=== PATIENT | male | born 1955 | race Caucasian/White ===

== ENCOUNTER → 2018-08-17 | Outpatient (REF) | payer BC | LOC: M LAB REF 17:11 | DX: L03.032 Cellulitis of left toe (principal) ==

== ENCOUNTER → 2018-09-13 | Outpatient (REF) | payer BC | LOC: M LAB REF 15:40 | DX: L03.115 Cellulitis of right lower limb (principal); L97.512 Non-pressure chronic ulcer of other part of right foot with fat layer exposed | CPT/HCPCS: 87186 ==

== ENCOUNTER → 2018-12-20 | Outpatient (REF) | payer MEDICARE | LOC: M LAB REF 15:32 | PROVIDERS: ATTEND Podiatrist | DX: M79.671 Pain in right foot (principal); L03.125 Acute lymphangitis of right lower limb ==

== ENCOUNTER → 2019-01-27 | Outpatient (CLI) | payer MEDICARE ==
--- NOTE | 2019-02-02 10:17 | SLEEPCENT ---
DATE OF PROCEDURE: 01/27/2019 ORDERED BY: Italia Stover Nocturnal polysomnography was performed for evaluation of sleep physiology in this patient with prior history of obstructive sleep apnea syndrome. 7 hours and 23 minutes of data were reviewed. There were 379 minutes of sleep identified. Sleep latency was normal at 7 minutes. REM latency was short at 21 minutes. Sleep architecture showed fragmentation. Overall sleep efficiency was 86.5%. The electrocardiogram showed a sinus rhythm with an average heart rate of 66 beats per minute. EEG showed normal waveforms for wake and sleep were 147 respiratory events identified of 10 seconds in duration or greater for an apnea-hypopnea index of 23.2. Having clearly established the presence of obstructive sleep apnea syndrome early in testing. The study was stopped for the application of pressure therapy. The patient was fit with a Iceotope Quattro Mirage full face mask of medium size. 5 cm of water pressure were applied to the circuit the lights were extinguished. Throughout the remaining hours of testing pressure titration was performed to an optimal pressure of 15 with which the patient slept through REM without respiratory event or oxygen desaturation in the supine posture. Limb activity was noted despite addressing the obstructive respiratory events. However limb movement arousals were few at 1.4. IMPRESSION: 1. Obstructive sleep apnea syndrome (G47.33). Apnea-hypopnea index 23.2. RECOMMENDATIONS: Nightly use of pressure therapy 15 cm of water.
== END ==
LOC: M SLEEP 19:23
PROVIDERS: ATTEND Nurse Practitioner Adult Health
DX: G47.33 Obstructive sleep apnea (adult) (pediatric) (principal)

== ENCOUNTER → 2019-08-02 | Outpatient (REF) | payer MEDICARE | LOC: M LAB REF 14:46 | PROVIDERS: ATTEND Podiatrist | DX: L03.031 Cellulitis of right toe (principal); M79.671 Pain in right foot ==

== ENCOUNTER → 2019-10-19 | Outpatient (REF) | payer MEDICARE | LOC: M LAB REF 13:08 | PROVIDERS: ATTEND Podiatrist | DX: L03.039 Cellulitis of unspecified toe (principal); M79.674 Pain in right toe(s) ==

== ENCOUNTER → 2020-07-11 | Outpatient (REF) | payer MEDICARE | LOC: M LAB REF 16:37 | PROVIDERS: ATTEND Podiatrist | DX: L03.032 Cellulitis of left toe (principal); M79.672 Pain in left foot ==

== ENCOUNTER → 2020-08-28 | Outpatient (CLI) | payer MEDICARE ==
[2020-08-28 16:49] LABS: CREATININE, URINE 54.3 MG/DL; MALB URINE SIEMENS 19.9 MG/L; MAU/CREAT RATIO 36.6 MCG/MG (0.0-30.0)
[2020-08-28 17:19] LABS: CALCIUM LEVEL 9.3 MG/DL (8.8-10.2); CREATININE FOR GFR 1.46 MG/DL (0.70-1.30); GLOMERULAR FILTRATION RATE 51.3 (>49); POTASSIUM SERUM 4.7 MEQ/L (3.5-5.1)
== END ==
LOC: M WUC 14:09
PROVIDERS: ATTEND Internal Medicine Endocrinology, Diabetes & Metabolism
DX: E11.65 Type 2 diabetes mellitus with hyperglycemia (principal)

== ENCOUNTER → 2020-11-15 | Outpatient (REF) | payer MEDICARE ==
[2020-11-15 17:37] LABS: BLOOD UREA NITROGEN 23 MG/DL (7-18); CALCIUM LEVEL 9.5 MG/DL (8.8-10.2); CARBON DIOXIDE LEVEL 26 MEQ/L (21-32); CHLORIDE LEVEL 104 MEQ/L (98-107); GLOMERULAR FILTRATION RATE > 60.0 (>49); GLUCOSE, FASTING 295 MG/DL (70-100); POTASSIUM SERUM 4.1 MEQ/L (3.5-5.1); SODIUM LEVEL 139 MEQ/L (136-145)
== END ==
LOC: M WUC 15:52
PROVIDERS: ATTEND Internal Medicine Endocrinology, Diabetes & Metabolism
DX: E11.65 Type 2 diabetes mellitus with hyperglycemia (principal); E11.40 Type 2 diabetes mellitus with diabetic neuropathy, unspecified

== ENCOUNTER 2020-12-26 13:09 | Emergency (ER) | payer MEDICARE ==
[~2020-12-26] VITALS: Ht 198.1 cm; Wt 152.3 kg
[2020-12-26] MEDS ORDERED: FURO40TA2 PO (13:27)
[2020-12-26] MEDS ORDERED: IRBE150T7 PO (13:27)
[2020-12-26] MEDS ORDERED: ATOR1TAB19 PO (13:27)
[2020-12-26] MEDS ORDERED: DULO1CAP5 PO (13:27)
[2020-12-26] MEDS ORDERED: DULA3PEN SUBQ (13:27)
[2020-12-26] MEDS ORDERED: METF10004 PO (13:27)
[2020-12-26] MEDS ORDERED: GABA800T4 PO (13:27)
[2020-12-26] MEDS ORDERED: JARD1TAB3 PO (13:27)
[2020-12-26] MEDS ORDERED: AMLO1TAB25 PO (13:27)
[2020-12-26 13:55] LABS: BASO % 0.2 % (0.0-1.0); HEMATOCRIT 51.5 % (42.0-52.0); HEMOGLOBIN 17.2 g/dl (13.5-17.5); LYMPH # 0.5 10^3/uL (1.5-5.0); LYMPH % 8.9 % (24.0-44.0); MEAN CORPUSCULAR HEMOGLOBIN 30.1 pg (27.0-33.0); MEAN CORPUSCULAR HGB CONC 33.4 g/dl (32.0-36.5); MEAN CORPUSCULAR VOLUME 90.2 fl (80.0-96.0); MONO # 0.6 10^3/uL (0.0-0.8); MONO % 11.2 % (2.0-8.0); NEUTROPHILS # 4.2 10^3/uL (1.5-8.5); PLATELET COUNT, AUTOMATED 109 10^3/uL (150-450); RED BLOOD COUNT 5.71 10^6/uL (4.30-6.10); WHITE BLOOD COUNT 5.4 10^3/uL (4.0-10.0)
[2020-12-26] MEDS ORDERED: PANTOPRAZOLE 40MG VIAL (C9113 PER 1) IV ONE (13:55)
[2020-12-26] MEDS ORDERED: NS 1,000 ML IV ONE ×2 (13:55→16:20)
[2020-12-26] MEDS ORDERED: ONDANSETRON 4MG/2ML VIAL IV ONE (13:55)
[2020-12-26 14:24] LABS: ALBUMIN 3.1 GM/DL (3.2-5.2); BILIRUBIN,DIRECT 0.3 MG/DL (0.0-0.2); BILIRUBIN,TOTAL 0.9 MG/DL (0.2-1.0); CALCIUM LEVEL 7.6 MG/DL (8.8-10.2); CREATININE FOR GFR 1.29 MG/DL (0.70-1.30); GLOMERULAR FILTRATION RATE 59.1 (>49); POTASSIUM SERUM 3.5 MEQ/L (3.5-5.1); TOTAL PROTEIN 6.4 GM/DL (6.4-8.2)
--- NOTE | 2020-12-26 14:33 | REP ---
INDICATION: abd pain COMPARISON: Comparison CT study 10/13/2013.. TECHNIQUE: Helical scanning is acquired in 4 mm axial images were reformatted. Coronal and sagittal MPR images were generated and reviewed. FINDINGS: Digital telephone surveyor radiograph demonstrates a unremarkable bowel gas pattern. There are bilateral renal calculi noted on the telephone surveyor view. Axial CT images displayed lung window settings demonstrate multiple ground-glass opacity and interstitial infiltrates in the lung pierre bilaterally consistent with multifocal pneumonia. These involve right middle lobe, bilateral lower lobes, and at the top of the field of view, the lingula. The patchy bilateral distribution is compatible with COVID-19 pneumonia although this certainly nonspecific. The liver and spleen are normal in size homogeneous in texture. No focal hepatic lesion is seen. No abnormality is noted in the gallbladder. Normal adrenal glands are seen bilaterally. The pancreas is unremarkable. There are no intrarenal calculi in the right kidney on axial CT images. There are 3 fairly large intrarenal calculi in the lower pole of the left kidney. These measure 11 mm each in greatest diameter. There is no evidence of hydronephrosis. No ureteral calculus is observed. The left mid ureter is somewhat dilated but no obstructive lesion is seen. The right mid ureter is also somewhat enlarged. The these configuration of variant is visible previously although little more prominent today. The urinary bladder is mildly dilated but otherwise appears intact.. There are dystrophic calcifications in the prostate. Seminal vesicles are unremarkable. There is left colonic diverticulosis without CT evidence of diverticulitis. Normal a normal appendix is seen in the right lower abdomen. IMPRESSION: 1. Viral pneumonia pattern in the lower lung pierre bilaterally as above. Changes compatible with COVID pneumonia are present although nonspecific. 2. Left colonic diverticulosis without CT evidence of diverticulitis. 3. Intrarenal nephrolithiasis left kidney without hydronephrosis. Three fairly large intrarenal calculi are present in the left kidney. <Electronically signed by Seng Lockett > 12/26/20 [id number]
[2020-12-26 14:37] LABS: INR 1.03; PROTHROMBIN TIME 13.7 SECONDS (12.5-14.3)
--- OUTSIDE RECORDS SUMMARY | 2020-12-26 14:50 | CCD | Continuity of Care Document ---
Author Author Marcus BAEZ MD Organization Unknown Address [address] [place] [address], [address] [place] [address] Phone [phone] Care Team Providers Care Inner Tube Cutter Name Role Phone Rosalie Jeffrey RN Canp AUTM [phone] Problems Active Problems Provider Date Type 2 diabetes mellitus Onset: 08/03/20 15 Essential hypertension Onset: 03/29/2019 Type II diabetes mellitus uncontrolled Sonya Baez MD O nset: 04/12/2019 Social History Type Date Description Comments Sex Unknown Tobacco Use Start: Unknown Never Smoked Cigarettes ETOH Use Rarely consumes alcohol Tobacco Use Start: Unknown Patient has never smoked Smoking Status Reviewed: 09/15/19 Patient has never smoked Allergies, Adverse Reactions, Alerts Description No Known Drug Allergies Medications Active Medications SIG Qnty Indications Ordering Provide r Date Jardiance 25mg Tablets 1 by mouth every day 90tabs E11.65 Sonya Baez MD 09/15/2019 Aleve 220mg Capsules prn Naomy Vasquez, 01/27/2019 Trulicity 1.5mg/0.5ML Solution Pen -Inject Inject 1 Subcutaneously Once A Week 4units Jhonny Vasquez, 10/02/2017 Metformin HCL 1000mg Tablets 1 po bid 180tabs Naomy Vasquez, 02/11/2017 Irbesartan 150mg Tablets 1 by mouth every day Unknown Furosemide 40mg Tablets 1 po qd Unknown Gabapentin 800mg Tablets 1 po tid Unknown Aspir-Low 81mg Tablets DR 1 p o qd Unknown Duloxetine HCL 30mg Caps DR Part 2 PO qam And 1 PO QHS Unknown Atorvastatin Calcium 10mg Tablets 1 by mouth every day Unknown Amlodipine Besylate 10mg Tablets 1 by mouth every day Unknown Multivitamin Adult Tablets 1 by mouth every day Unknown Immunizations Description No Information Available Vital Signs Date Vital Result Comment 11/12/2020 11:15am BP Systolic 146 mmHg BP Diastolic 76 mmHg Heart Rate 87 /min Body Temperature 96.9 F Height 77 inches 6'5" Weight 325.38 lb BMI (Body Mass Index) 38.6 kg/m2 O2 % BldC Oximetry 98 % 08/06/2020 2:31pm BP Systolic 124 mmHg BP Diastolic 80 mmHg Heart Rate 77 /min Height 77 inches 6'5" Weight 322.25 lb BMI (Body Mass Index) 38.2 kg/m2 O2 % BldC Oximetry 97 % Results Test Acquired Date Facility Test Result H/L Range Note Laboratory test finding 11/12/2020 In House Hemoglobin A1c 10.2 Glucose 250 Basic Metabolic Profile 08/28/2020 [facility] [address] [place] [address] [phone] - Glucose, Fasting 441 mg/dL Critical high 70-100 Blood Urea Nitrogen 29 mg/dL High 7-18 Creatinine For GFR 1.46 mg/dL High 0.70-1.30 Glomerular Filtration Rate 51.3 Normal >49 1 Sodium Level 132 mEq/L Low 136-145 Potassium Serum 4.7 mEq/L Normal 3.5-5.1 Chloride Level 96 mEq/L Low 98-107 Carbon Dioxide Level 30 mEq/L Normal 21-32 Anion Gap 6 mEq/L Low 8-16 Calcium Level 9.3 mg/dL Normal 8.8-10.2 Urine Micro/Creat Ratio Random 08/28/2020 [facility] [address] [place] [address] [phone] - Creatinine, Urine 54.3 mg/dL Normal Malb Urine Siemens 19.9 mg/L Normal Hubert/Creat Ratio 36.6 MCG/MG High 0.0-30.0 2 Laboratory test finding 08/06/2020 In House Hemoglobin A1c 11.0 Glucose 270 1 Units are mL/min/1.73 m2 Chronic Kidney Disease Staging per NKF: Stage I & II GFR >=60 Normal to Mildly Decreased Stage III GFR 30-59 Moderately Decreased Stage IV GFR 15-29 Severely Decreased Stage V GFR <15 Very Little GFR Left ESRD GFR <15 on [employer] 2 THE [employer] ATION STATES THAT MICROALBUMINURIA IS PRESENT IF THE MICROALBUMIN/CREATININE RATIO EXCEEDS 30 MCG/MG. THE THRESHOLD FOR CLINICAL ALBUMINURIA IS REACHED AT 300 MCG/MG. THE CLASSIFICATION OF A PATIENT SHOULD BE BASED UPON AT LEAST 2 OF 3 ABNORMAL RESULTS ON SPECIMENS COLLECTED WITHIN A 3 TO 6 MONTH TIME FRAME. Procedures Date Code Description Status 07/10/2020 [id number] Diabetic Foot Exam Completed Medical Devices Description No Information Available Encounters Type Date Location Provider Dx Diagnosis Office Visit 08/06/2020 2:30p DR. 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 in Sonya Baez MD 11/12/2020 E11.65 Type 2 diabetes mellitus with hy perglycemia Sonya Baez MD 11/12/2020 E11.40 Type 2 diabetes mellitus with di abetic neuropathy, unspecifi Sonya Baez MD 11/12/2020 Z68.41 Body mass index [BMI]40.0-44.9, adult Sonya Baez MD 11/12/2020 E66.01 Morbid (severe) obesity due to e xcess calories Sonya Baez MD 11/12/2020 E78.00 Pure hypercholesterolemia, unspe cified Sonya Baez MD 08/06/2020 Z79.4 prison (current) use of insul in Sonya Baez MD 08/06/2020 E11.65 Type 2 diabetes mellitus with hy perglycemia Sonya Baez MD 08/06/2020 E11.40 Type 2 diabetes mellitus with di abetic neuropathy, unspecifi Sonya Baez MD 08/06/2020 Z68.41 Body mass index [BMI]40.0-44.9, adult Sonya Baez MD 08/06/2020 E66.01 Morbid (severe) obesity due to e xcess calories Sonya Baez MD 08/06/2020 E78.00 Pure hypercholesterolemia, unspe cified Sonya Baez MD 07/10/2020 Z79.4 prison (current) use of insul in Sonya Baez MD 07/10/2020 E11.65 Type 2 diabetes mellitus with hy perglycemia Sonya Baez MD 07/10/2020 E11.40 Type 2 diabetes mellitus with di abetic neuropathy, unspecifi Sonya Baez MD 07/10/2020 Z68.41 Body mass index (BMI) 40.0-44.9, adult Sonya Baez MD 07/10/2020 E66.01 Morbid (severe) obesity due to e xcess calories Sonya Baez MD 07/10/2020 E78.00 Pure hypercholesterolemia, unspe cified Sonya Baez MD Plan of Treatment 11/12/2020 - Sonya Baez MD* 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 * E11.65 Type 2 diabetes mellitus with hyperglycemia* New Labs:* Basic Metabolic Profile, Scheduled: 11/12/20 * Comments:* In office A1c =10.2 bp=724vpto A1c= 11%-" i added potatoes to a few meals, no candy, no dairy, no fruit"now having dairy- cheese, occasional milk, breading on fish. Still eats beets, pickled beets - a " fair amount"no product from grainsMarkedly decompensated.He reports one episode where he took 50 inits of toujeo and had low BS in middle of the nightExtremely difficult case.-Continues to be in denial about his dietary habits.past 7.7% down from 9.8% 8.8%, 8.3% prior A1c = 10.3%. before jardianceMeter download: Not checking regularly . recent BS= 300 only 2 readings the past several weeksPast insulin medications: Toujeo insulin 66 units, he takes a double injection in the morning,- and an additional 66 at night for past weekHumalog 30 units with each meal.- break and dinnercurrent medications:Trulicity 1.5 mg weekly (he is not sure that this has helped lower his blood sugar at all)Metformin 1000 mg twice a day. Jardiance 25 ( started 04/12/19)RECS:#1: Restart mealtime insulin: take 10 units with a meal that has starch- PAtient did not restart insulin+++#2: raise trulicity 3.0#3 restart toujeo 100 units in am" its a whole mental issue about taking medication...i have memory loss and mental muddling.". * Follow up:* 6 weeks- nette/cbf- 30 minutes * E11.40 Type 2 diabetes mellitus with diabetic neuropathy, unspecifi* New Labs: * Magnesium Level, Scheduled: 11/12/20 * Comments:* He has severe peripheral neuropathy and is taking gabapentin. Loss of sensation to the mid shins. Discussed appropriate foot care. self increased to 4-5 pills a day- feet bother at night * Z68.41 Body mass index [BMI]40.0-44.9, adult* Comments:* Diet and exercise discussed. * E66.01 Morbid (severe) obesity due to excess calories* Comments:* calorie restriction and exercise advised. has lost 25 pounds and an additional 22 but now make be due to porrly controlled diabetes * E78.00 Pure hypercholesterolemia, unspecified* Comments:* LDL = 118, January 2020. Patient states he is now taking a full dose of his statin. Reported dose is 10 mg atorvastatin daily. Goal for LDL <100. Functional Status Description No Information Available Mental Status Description No Information Available Referrals Description No Information Available
--- OUTSIDE RECORDS SUMMARY | 2020-12-26 14:50 | CCD | Continuity of Care Document ---
Author Author Marcus GARCIA MD Organization Unknown Address [address] [place] [address], [address] [place] [address] Phone [phone] Care Team Providers Care Master [employer] Name Role Phone Rosalie Jeffrey RN Canp AUTM [phone] Problems Active Problems Provider Date Type 2 diabetes mellitus Onset: 08/03/20 15 Essential hypertension Onset: 03/29/2019 Type II diabetes mellitus uncontrolled Sonya Garcia MD O nset: 04/12/2019 Social History Type Date Description Comments Sex Unknown Tobacco Use Start: Unknown Never Smoked Cigarettes ETOH Use Rarely consumes alcohol Tobacco Use Start: Unknown Patient has never smoked Smoking Status Reviewed: 11/12/20 Patient has never smoked Allergies, Adverse Reactions, Alerts Description No Known Drug Allergies Medications Active Medications SIG Qnty Indications Ordering Provide r Date Trulicity 3mg/0.5ML Solution Pen-I nject inject sq 1x/week. please dispense 12 pens 6ml E11.65 Jasper Garcia MD 11/16/2020 Jardiance 25mg Tablets 1 by mouth every day 90tabs E11.65 Sonya Garcia MD 09/15/2019 Aleve 220mg Capsules prn Naomy [...] Date Facility Test Result H/L Range Note Basic Metabolic Profile 11/15/2020 [facility] [address] [place] [address] [phone])- - Glucose, Fasting 295 mg/dL High 70-100 Blood Urea Nitrogen 23 mg/dL High 7-18 Creatinine For GFR 1.20 mg/dL Normal 0.70-1.30 Glomerular Filtration Rate > 60.0 Normal >49 1 Sodium Level 139 mEq/L Normal 136-145 Potassium Serum 4.1 mEq/L Normal 3.5-5.1 Chloride Level 104 mEq/L Normal 98-107 Carbon Dioxide Level 26 mEq/L Normal 21-32 Anion Gap 9 mEq/L Normal 8-16 Calcium Level 9.5 mg/dL Normal 8.8-10.2 Laboratory test finding 11/15/2020 [facility] [address] [place] [address] (315)- - Magnesium Level 2.0 mg/dL Normal 1.8-2.4 Laboratory test finding 11/12/2020 In House Hemoglobin A1c 10.2 Glucose 250 Basic Metabolic Profile 08/28/2020 [facility] [address] [place] [address] [phone])- - Glucose, Fasting 441 mg/dL Critical high 70-100 Blood Urea Nitrogen 29 mg/dL High 7-18 Creatinine For GFR 1.46 mg/dL High 0.70-1.30 Glomerular Filtration Rate 51.3 Normal >49 2 Sodium Level 132 mEq/L Low 136-145 Potassium Serum 4.7 mEq/L Normal 3.5-5.1 Chloride Level 96 mEq/L Low 98-107 Carbon Dioxide Level 30 mEq/L Normal 21-32 Anion Gap 6 mEq/L Low 8-16 Calcium Level 9.3 mg/dL Normal 8.8-10.2 Urine Micro/Creat Ratio Random 08/28/2020 [facility] [address] [place] [address] (315)- - Creatinine, Urine 54.3 mg/dL Normal Malb Urine Siemens 19.9 mg/L Normal Hubert/Creat Ratio 36.6 MCG/MG High 0.0-30.0 3 Laboratory test finding 08/06/2020 In House Hemoglobin A1c 11.0 Glucose 270 1 Units are mL/min/1.73 m2 Chronic Kidney Disease Staging per NKF: Stage I & II GFR >=60 Normal to Mildly Decreased Stage III GFR 30-59 Moderately Decreased Stage IV GFR 15-29 Severely Decreased Stage V GFR <15 Very Little GFR Left ESRD GFR <15 on [employer] 2 Units are mL/min/1.73 m2 Chronic Kidney Disease Staging per NKF: Stage I & II GFR >=60 Normal to Mildly Decreased Stage III GFR 30-59 Moderately Decreased Stage IV GFR 15-29 Severely Decreased Stage V GFR <15 Very Little GFR Left ESRD GFR <15 on [employer] 3 THE [employer] ATION STATES THAT MICROALBUMINURIA IS PRESENT IF THE MICROALBUMIN/CREATININE RATIO EXCEEDS 30 MCG/MG. THE THRESHOLD FOR CLINICAL ALBUMINURIA IS REACHED AT 300 MCG/MG. THE CLASSIFICATION OF A PATIENT SHOULD BE BASED UPON AT LEAST 2 OF 3 ABNORMAL RESULTS ON SPECIMENS COLLECTED WITHIN A 3 TO 6 MONTH TIME FRAME. Procedures Date Code Description Status 07/10/2020 [id number] Diabetic Foot Exam Completed Medical Devices Description No Information Available Encounters Type Date Location Provider Dx Diagnosis Office Visit 11/12/2020 11:30a DR. 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 in Sonya Garcia MD 11/12/2020 E11.40 Type 2 diabetes mellitus with di abetic neuropathy, unspecifi Sonya Garcia MD 11/12/2020 Z68.41 Body mass index [BMI]40.0-44.9, adult Sonya Garcia MD 11/12/2020 E66.01 Morbid (severe) obesity due to e xcess calories Sonya Garcia MD 08/06/2020 Z79.4 long-term (current) use of insul in Sonya Garcia MD 08/06/2020 E11.65 Type 2 diabetes mellitus with hy perglycemia Sonya Garcia MD 08/06/2020 E11.40 Type 2 diabetes mellitus with di abetic neuropathy, unspecifi Sonya Garcia MD 08/06/2020 Z68.41 Body mass index [BMI]40.0-44.9, adult Sonya Garcia MD 08/06/2020 E66.01 Morbid (severe) obesity due to e xcess calories Sonya Garcia MD 08/06/2020 E78.00 Pure hypercholesterolemia, unspe cified Sonya Garcia MD 07/10/2020 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 Sonya Garcia 11/12/2020 - Sonya Garcia MD* E11.65 Type 2 diabetes mellitus with hyperglycemia* Comments:* In office A1c =10.2 lb=83280: A1c= 11%-" i added potatoes to a few meals, no candy, no dairy, no fruit"11/2020:now having dairy- cheese, occasional milk, breading on fish. Still eats beets, pickled beets - a " fair amount"no product from grains" its a whole mental issue about taking medication...i have memory loss and mental muddling."Still decompensated.Extremely difficult case.-Continues to be in denial about his dietary habits.past A1c: 7.7% down from 9.8% 8.8%, 8.3% prior A1c = 10.3%. before bishop ThisMeter dpwnload- no date or time set BS= - 400Past insulin medications: Toujeo insulin 66 units, he takes a double injection in the morning,- and an additional 66 at night for past weekH umalog 30 units with each meal.- break and dinnerNo insulin for months- took a dose "here or there"current medications:Trulicity 1.5 mg weekly (he is not sure that this has helped lower his blood sugar at all)Metformin 1000 mg twice a day. d/marc fall 2019: Jardiance 25 ( started 04/12/19)--patient restarted( is taking diuretic 1/2 dose every third dayRECS:#1: Restart mealtime insulin: take 10 units with a meal that has starch- Patient did not restart insulin+++#2: raise trulicity 3.0 mg#3 restart toujeo 100 units in amUnfortunately patient does not understand how small dietary changes affecting his diabetes , also in denial about his need for medication. He does not want to take medication but unfortunately his A1c remains uncontrolled In addition: August 28, 2020 creatinine marita to 1.4, BUN = 29. GFR = 51. We called the patient and advised him to cut his furosemide and half. He was afraid that this would exacerbate an episode of CHF. He was advised to follow up with Dr. Vasquez and get repeat labs performed. We never received repeat labs. He is now off of the Jardiance. * Follow up:* 6 weeks- nette/cbf- 30 minutes * E78.00 Pure hypercholesterolemia, unspecified* Comments:* LDL = 118, January 2020. Patient states he is now taking a full dose of his statin. Reported dose is 10 mg atorvastatin daily. Goal for LDL <100. * N18.9 Chronic kidney disease, unspecified* Comments:* Patient had a decline in his GFR from jardiance.Would not lower lasix as instructed.Back on jardiance- have ordered repeat BMP.Taking 1/2 Furosimide every 3rd day otherwise full dose. * Z79.4 long-term (current) use of insulin* Comments:* self d/marc 12/2019 Will restart long acting insulin today. * E11.40 Type 2 diabetes mellitus with diabetic neuropathy, unspecifi* Comments: * He has severe peripheral neuropathy and is [...] make be due to porrly controlled diabetes Functional Status Description No Information Available Mental Status Description No Information Available Referrals Description No Information Available
--- OUTSIDE RECORDS SUMMARY | 2020-12-26 14:51 | CCD ---
Author Author [facility] Organization [facility] Address Unknown Phone Unavailable Care Team Providers Care Customer Care Associate Name Role Phone Christina, Naomy DO Unavailable Unavailable Christina, Naomy DO Unavailable Unavailable Christina, Naomy DO Unavailable Unavailable Christina, Naomy DO Unavailable Unavailable Christina, Naomy DO Unavailable Unavailable Christina, Naomy DO Unavailable Unavailable Christina, Naomy DO Unavailable Unavailable Christina, Naomy DO Unavailable Unavailable Christina, Naomy DO Unavailable Unavailable Christina, Naomy DO Unavailable Unavailable Christina, Naomy DO Unavailable Unavailable Christina, Naomy DO Unavailable Unavailable Christina, Naomy DO Unavailable Unavailable Christina, Naomy DO Unavailable Unavailable Christina, Naomy DO Unavailable Unavailable Christina, Naomy DO Unavailable Unavailable Christina, Naomy DO Unavailable Unavailable Christina, Naomy DO Unavailable Unavailable Christina, Naomy DO Unavailable Unavailable Christina, Naomy DO Unavailable Unavailable Christina, Naomy DO Unavailable Unavailable Christina, Naomy DO Unavailable Unavailable Christina, Naomy DO Unavailable Unavailable Christina, Naomy DO Unavailable Unavailable Christina, Naomy DO Unavailable Unavailable Christina, Naomy DO Unavailable Unavailable Christina, Naomy DO Unavailable Unavailable Christina, Naomy DO Unavailable Unavailable Christina, Naomy DO Unavailable Unavailable Christina, Naomy DO Unavailable Unavailable Christina, Naomy DO Unavailable Unavailable Christina, Naomy DO Unavailable Unavailable Christina, Naomy DO Unavailable Unavailable Christina, Naomy DO Unavailable Unavailable Christina, Naomy DO Unavailable Unavailable Christina, Naomy DO Unavailable Unavailable Christina, Naomy DO Unavailable Unavailable Christina, Naomy DO Unavailable Unavailable Christina, Naomy DO Unavailable Unavailable Christina, Naomy DO Unavailable Unavailable Christina, Naomy DO Unavailable Unavailable Christina, Naomy DO Unavailable Unavailable Christina, Naomy DO Unavailable Unavailable Christina, Naomy DO Unavailable Unavailable Christina, Naomy DO Unavailable Unavailable Christina, Naomy DO Unavailable Unavailable Christina, Naomy DO Unavailable Unavailable Christina, Naomy DO Unavailable Unavailable Christina, Naomy DO Unavailable Unavailable Christina, Naomy DO Unavailable Unavailable Christina, Naomy DO Unavailable Unavailable Christina, Naomy DO Unavailable Unavailable Christina, Naomy DO Unavailable Unavailable Christina, Naomy DO Unavailable Unavailable Christina, Naomy DO Unavailable Unavailable Christina, Naomy DO Unavailable Unavailable Christina, Naomy DO Unavailable Unavailable Christina, Naomy DO Unavailable Unavailable Christina, Naomy DO Unavailable Unavailable Christina, Naomy DO Unavailable Unavailable Christina, Naomy DO Unavailable Unavailable Christina, Naomy DO Unavailable Unavailable Christina, Naomy DO Unavailable Unavailable Christina, Naomy DO Unavailable Unavailable Christina, Naomy DO Unavailable Unavailable Christina, Naomy DO Unavailable Unavailable Christina, Naomy DO Unavailable Unavailable Christina, Naomy DO Unavailable Unavailable Christina, Naomy DO Unavailable Unavailable Christina, Naomy DO Unavailable Unavailable Christina, Naomy DO Unavailable Unavailable Christina, Naomy DO Unavailable Unavailable PICKERAL JR, J MARTIN PA-C Unavailable Unavailable PICKERAL JR, J MARTIN PA-C Unavailable Unavailable PICKERAL JR, J MARTIN PA-C Unavailable Unavailable PICKERAL JR, J MARTIN PA-C Unavailable Unavailable PICKERAL JR, J MARTIN PA-C Unavailable Unavailable PICKERAL JR, J MARTIN PA-C Unavailable Unavailable PICKERAL JR, J MARTIN PA-C Unavailable Unavailable PICKERAL JR, J MARTIN PA-C Unavailable Unavailable PICKERAL JR, J MARTIN PA-C Unavailable Unavailable PICKERAL JR, J MARTIN PA-C Unavailable Unavailable PICKERAL JR, J MARTIN PA-C Unavailable Unavailable PICKERAL JR, J MARTIN PA-C Unavailable Unavailable PICKERAL JR, J MARTIN PA-C Unavailable Unavailable PICKERAL JR, J MARTIN PA-C Unavailable Unavailable PICKERAL JR, J MARTIN PA-C Unavailable Unavailable PICKERAL JR, J MARTIN PA-C Unavailable Unavailable PICKERAL JR, J MARTIN PA-C Unavailable Unavailable PICKERAL JR, J MARTIN PA-C Unavailable Unavailable PICKERAL JR, J MARTIN PA-C Unavailable Unavailable PICKERAL JR, J MARTIN PA-C Unavailable Unavailable PICKERAL JR, Frank MARTIN NUNES Unavailable Unavailable Fish, Berta Hassan MD Unavailable Unavailable Fish, Berta Hassan MD Unavailable Unavailable Fish, Berta Hassan MD Unavailable Unavailable Fish, Berta Hassan MD Unavailable Unavailable Fish, Berta Hassan MD Unavailable Unavailable Fish, Berta Hassan MD Unavailable Unavailable Fish, Berta Hassan MD Unavailable Unavailable Fish, Berta Hassan MD Unavailable Unavailable Fish, Berta Hassan MD Unavailable Unavailable Fish, Berta Hassan MD Unavailable Unavailable Fish, Berta Hassan MD Unavailable Unavailable Fish, Berta Hassan MD Unavailable Unavailable Fish, Berta Hassan MD Unavailable Unavailable Fish, Berta Hassan MD Unavailable Unavailable Fish, Berta Hassan MD Unavailable Unavailable Fish, Berta Hassan MD Unavailable Unavailable Fish, Berta Hassan MD Unavailable Unavailable Fish, Berta Hassan MD Unavailable Unavailable Fish, Berta Hassan MD Unavailable Unavailable Fish, Berta Hassan MD Unavailable Unavailable Fish, Berta Hassan MD Unavailable Unavailable Fish, Berta Hassan MD Unavailable Unavailable Fish, Berta Hassan MD Unavailable Unavailable Fish, Breta Hassan MD Unavailable Unavailable Fish, Berta Hassan MD Unavailable Unavailable Fish, Berta Hassan MD Unavailable Unavailable Fish, Berta Hassan MD Unavailable Unavailable Fish, Berta Hassan MD Unavailable Unavailable Fish, Berta Hassan MD Unavailable Unavailable Fish, Berta Hassan MD Unavailable Unavailable Fish, Berta Hassan MD Unavailable Unavailable Fish, Berta Hassan MD Unavailable Unavailable Fish, Berta Hassan MD Unavailable Unavailable Fish, Berta Hassan MD Unavailable Unavailable Fish, Berta Hassan MD Unavailable Unavailable Fish, Berta Hassan MD Unavailable Unavailable Fish, Berta Hassan MD Unavailable Unavailable Fish, Berta Hassan MD Unavailable Unavailable Fish, Berta Hassan MD Unavailable Unavailable Fish, Berta Hassan MD Unavailable Unavailable Fish, Berta Hassan MD Unavailable Unavailable Fish, Berta Hassan MD Unavailable Unavailable Fish, Berta Hassan MD Unavailable Unavailable Fish, Berta Hassan MD Unavailable Unavailable Fish, Berta Hassan MD Unavailable Unavailable Fish, Berta Hassan MD Unavailable Unavailable Fish, Berta Hassan MD Unavailable Unavailable Fish, Berta Hassan MD Unavailable Unavailable Fish, Berta Hassan MD Unavailable Unavailable Fish, Berta Hassan MD Unavailable Unavailable Fish, Berta Hassan MD Unavailable Unavailable Fish, Berta Hassan MD Unavailable Unavailable Fish, Berta Hassan MD Unavailable Unavailable Fish, Berta Hassan MD Unavailable Unavailable Fish, Berta Hassan MD Unavailable Unavailable Fish, Berta Hassan MD Unavailable Unavailable Fish, Berta Hassan MD Unavailable Unavailable Fish, Berta Hassan MD Unavailable Unavailable Fish, Berta Hassan MD Unavailable Unavailable Fish, Berta Hassan MD Unavailable Unavailable Fish, Berta Hassan MD Unavailable Unavailable Fish, Berta Hassan MD Unavailable Unavailable Fish B Sonya REYNA Unavailable Unavailable Fish, B Sonya REYNA Unavailable Unavailable Jolanta, L Italia SHIPPING CHECKER Unavailable Unavailable Jolanta, L Italia SHIPPING CHECKER Unavailable Unavailable Jolanta, L Italia SHIPPING CHECKER Unavailable Unavailable Jolanta, L Italia SHIPPING CHECKER Unavailable Unavailable Jolanta, L [place]alia SHIPPING CHECKER Unavailable Unavailable Jolanta, L Italia SHIPPING CHECKER Unavailable Unavailable Jolanta, L [place] SHIPPING CHECKER Unavailable Unavailable Jolanta, L [place] SHIPPING CHECKER Unavailable Unavailable Jolanta, L [place] SHIPPING CHECKER Unavailable Unavailable Jolanta, L [place] SHIPPING CHECKER Unavailable Unavailable Jolanta, L [place] SHIPPING CHECKER Unavailable Unavailable Jolanta, L [place] SHIPPING CHECKER Unavailable Unavailable Jolanta, L [place] SHIPPING CHECKER Unavailable Unavailable Jolanta, L [place] SHIPPING CHECKER Unavailable Unavailable Jolanta, L [place] SHIPPING CHECKER Unavailable Unavailable Jolanta, L [place] SHIPPING CHECKER Unavailable Unavailable Jolanta, L [place] SHIPPING CHECKER Unavailable Unavailable Jolanta, L [place] SHIPPING CHECKER Unavailable Unavailable Jolanta, L [place] SHIPPING CHECKER Unavailable Unavailable Jolanta, L [place] SHIPPING CHECKER Unavailable Unavailable Jolanta, L [place] SHIPPING CHECKER Unavailable Unavailable Jolanta, L [place] SHIPPING CHECKER Unavailable Unavailable Re-disclosure Warning The records that you are about to access may contain information from federally-assisted alcohol or drug abuse programs. If such information is present, then the following federally mandated warning applies: This information has been disclosed to you from records protected by federal confidentiality rules (42 CFR part 2). The federal rules prohibit you from making any further disclosure of this information unless further disclosure is expressly permitted by the written consent of the person to whom it pertains or as otherwise permitted by 42 CFR part 2. A general authorization for the release of medical or other information is NOT sufficient for this purpose. The Federal rules restrict any use of the information to criminally investigate or prosecute any alcohol or drug abuse patient.The records that you are about to access may contain highly sensitive health information, the redisclosure of which is protected by Article 27-F of the [facility] Public Health law. If you continue you may have access to information: Regarding HIV / AIDS; Provided by facilities licensed or operated by the [facility] Office of Mental Health; or Provided by the [facility] Office for People With Developmental Disabilities. If such information is present, then the following [facility] mandated warning applies: This information has been disclosed to you from confidential records which are protected by state law. State law prohibits you from making any further disclosure of this information without the specific written consent of the person to whom it pertains, or as otherwise permitted by law. Any unauthorized further disclosure in violation of state law may result in a fine or nursing home sentence or both. A general authorization for the release of medical or other information is NOT sufficient authorization for further disc losure. Family History Family Member Name Family Member Gender Family Member Status Date o f Status Description Data Source(s) Unknown Male Problem [facility] ([facility] Unknown Male Problem [facility] ([facility]) Unknown Male Problem [facility] ([facility]) Unknown Male Problem [facility] ([facility]) Unknown Female Encounters Encounter Providers Location Date Indications Data Source(s ) Outpatient Attender: Sonya Baez MD Physical Therapy 11/12 10:30:00 AM EST [facility] ([facility]) Outpatient Attender: Sonya Baez MD Physical Therapy 08/06 02:30:00 PM EDT [facility] ([facility]) Outpatient Attender: Italia Frederick/Cristobal/Ralph/Santos 07/31/2020 09:45:00 AM EDT [facility] ([facility] Outpatient Attender: Naomy Branch 07/30 10:00:00 AM EDT MED[facility] ([facility] ) Outpatient Attender: Naomy Branch 06/19 02:00:00 PM EDT [facility] ([facility] ) Outpatient Attender: MARTIN Hays 0 05/22/2020 02:40:00 PM EDT MED[facility] ([facility] ) Outpatient Attender: Sonya Baez MD Physical Therapy 03/20 03:00:00 PM EDT [facility] ([facility]) Outpatient Attender: Naomy Branch 01/16 10:00:00 AM EDT MED[facility] ([facility] ) Outpatient Attender: Sonya Baez MD Physical Therapy 12/19 09:45:00 AM EST MED[facility] ([facility]) Medications Medication Brand Name Start Date Product Form Dose Route Admi nistrative Instructions Pharmacy Instructions Status Indications Reaction Description Data Source(s) Trulicity Trulicity 11/16/2020 12:00:00 AM EST SUBCUTANEOUS active MEDENT ([facility]) Ipratropium [place] Ipratropium [place] 07/31/2020 12:00:00 AM EDT active MED[facility] ([facility] ) Azelastine HCL (Nasal) Azelastine HCL (Nasal) 07/30/2020 12:00:00 AM E DT active MED[facility] ([facility]) CPAP 07/29/2020 12:00:00 AM EDT active [facility] ([facility] ) Shingrix Shingrix 06/19/2020 12:00:00 AM EDT activ e MEDENT ([facility]) 0.5 ML Streptococcus pneumoniae serotype 1 capsular antigen diphtheria [id number] protein conjugate vaccine 0.0044 MG/ML / Streptococcus pneumoniae serotype 14 capsular antigen diphtheria [id number] protein conjugate vaccine 0.0044 MG/ML / Streptococcus pneumonia Prevnar 13 06/19/2020 12:00:00 AM EDT active [facility] Insurance Providers Payer name Policy type / Coverage type Policy ID Covered constitution party ID Covered constitution party's relationship to graves Policy Graves Plan Information MEDICARE BLUE PPO [id number] SP [id number] Blue Shield MCR Advantage Commercial [id number] Self [id number] Medicare Blue Ppo Commercial [id number] Self [id number] [place] Commercial [id number] Self [id number] Blue Shield MCR Advantage Commercial [id number] Self [id number] BS [place] Trad/[place] Medigap Part B [id number] Self [id number] Medicare Blue Ppo Commercial [id number] Self [id number] BS [place] Trad/[place] Medigap Part B [id number] Self [id number] BS [place] Trad/[place] Medigap Part B [id number] Self [id number] MEDICARE BLUE PPO 306 [id number] SP [id number] BCBS [place] PPO 302/[id number] SP [id number] BCBS OF [place] 306/[id number] SP [id number] BS [place] Medigap Part B [id number] Self [id number] [place] Healthy [place] Commercial [id number] Self [id number] BS [place] Medigap Part B [id number] Self [id number] [place]) [place] [id number] Self [id number] BS [place] Trad/MX Commercial [id number] Self [id number] BS [place] Medigap Part B [id number] Self [id number] [place]) [place] [id number] Self [id number] BS [place] Medigap Part B [id number] Self [id number] [place] [id number] Self [id number] [place] BCBS B [id number] S YNC [id number] EXCELLUS BCBS MEDICAID [id number] [place] [id number] EXCELLUS BCBS [id number] Rosario YNC [id number] EXCELLUS BCBS B [id number] S [id number] EX[place]LL[place] BCBS B [id number] S [id number] BS [place] Trad/MX Commercial 802 Self 802 BS [place] Trad/MX Commercial 802 Self 802 BS [place] Trad/MX Commercial 802 Self 802 [employer] Workers Compensation Self Workers Compensation Workers Compensation Self BC/BS [place] Medigap Part B Self BC/BS [place] Commercial Self EXCELLUS BCBS P UNAVAILABLE S UNAV AILABLE [place] INSURANCE P [id number] S [id number] Problems, Conditions, and Diagnoses Code Display Name Description Problem Type Effective Dates Data Source(s) 45582276 Obstructive sleep apnea syndrome Obstructive sle ep apnea syndrome Problem 07/31/2020 12:00:00 AM EDT [facility] [id number] Vasomotor rhinitis Vasomotor rhinitis Problem 12:00:00 AM EDT MED[facility] ([facility], ) Surgeries/Procedures Procedure Description Date Indications Data Source(s) Diabetic Foot Exam 07/10/2020 12:00:00 AM EDT MED[facility] ([facility]) Results ID Date Data Source [id number] 11/15/2020 10:55:00 AM EST MED[facility] ([facility]) Name Value Range Interpretation Code Description Data Marilu rce(s) Supporting Document(s) Magnesium [Mass/volume] in Serum or Plasma 2.0 mg/dL 1.8-2.4 [facility] ([facility]) ID Date Data Source [id number] 11/15/2020 10:55:00 AM EST MED[facility] ([facility]) Name Value Range Interpretation Code Description Data Marilu rce(s) Supporting Document(s) Glucose, Fasting 295 mg/dL 70-100 MED[facility] ([facility]) Blood Urea Nitrogen 23 mg/dL 7-18 [facility] ([facility] Creatinine For GFR 1.20 mg/dL 0.70-1.30 MED[facility] ([facility]) Glomerular Filtration Rate Laboratory test result MED[facility] ([facility]) <content>Units are mL/min/1.73 m2</content>
<content></content>
<content>Chronic Kidney Disease Staging per NKF:</content>
<content></content>
<content>Stage I & II GFR >=60 Normal to Mildly Decreased</content>
<content>Stage III GFR 30- 59 Moderately Decreased</content>
<content>Stage IV GFR 15-29 Severely Decreased</content>
<content>Stage V GFR <15 Very Little GFR Left</content>
<content>ESRD GFR <15 on CURRICULUM FACILITATOR</content>
<content></content> Sodium Level 139 meq/L 136-145 MED[facility] ([facility]) Chloride Level 104 meq/L 98-107 MED[facility] ([facility]) Potassium Serum 4.1 meq/L 3.5-5.1 [facility] ([facility]) Carbon Dioxide Level 26 meq/L 21-32 [facility] Calcium Level 9.5 mg/dL 8.8-10.2 [facility] ([facility]) Anion Gap 9 meq/L 8-16 [facility] ([facility] ID Date Data Source [id number] 11/12/2020 11:50:00 AM EST MED[facility] ([facility]) Name Value Range Interpretation Code Description Data Marilu rce(s) Supporting Document(s) Hemoglobin A1c/Hemoglobin.total in Blood 10.2 [facility] ([facility]) Glucose [Mass/volume] in Serum or Plasma 250 [facility] ([facility]) ID Date Data Source [id number] 08/28/2020 02:11:00 PM EDT MED[facility] ([facility]) Name Value Range Interpretation Code Description Data Marilu rce(s) Supporting Document(s) Microalbumin [Mass/volume] in Urine 19.9 mg/L [facility] ([facility]) Microalbumin/Creatinine [Mass Ratio] in Urine 36.6 MCG/MG 0.0-30.0 [facility] ([facility]) THE [place] [employer] STATES THAT MICROALBUMINURIA IS PRESENT IF THE MICROALBUMIN/CREATININE RATIO EXCEEDS 30 MCG/MG. THE THRESHOLD FOR CLINICAL ALBUMINURIA IS REACHED AT 300 MCG/MG. THE CLASSIFICATION OF A PATIENT SHOULD BE BASED UPON AT LEAST 2 OF 3 ABNORMAL RESULTS ON SPECIMENS COLLECTED WITHIN A 3 TO 6 MONTH TIME FRAME. Creatinine [Mass/volume] in Urine 54.3 mg/dL MED[facility] ([facility]) ID Date Data Source [id number] 08/28/2020 02:11:00 PM EDT MED[facility] ([facility]) Name Value Range Interpretation Code Description Data Marilu rce(s) Supporting Document(s) Glucose, Fasting 441 mg/dL 70-100 Above upper panic limits MED[facility] ([facility]) Blood Urea Nitrogen 29 mg/dL 7-18 [facility] ([facility] Creatinine For GFR 1.46 mg/dL 0.70-1.30 [facility] ([facility]) Glomerular Filtration Rate 51.3 MED ENT ([facility]) <content>Units are mL/min/1.73 m2</content>
<content></content>
<content>Chronic Kidney Disease Staging per NKF:</content>
<content></content>
<content>Stage I & II GFR >=60 Normal to Mildly Decreased</content>
<content>Stage III GFR 30- 59 Moderately Decreased</content>
<content>Stage IV GFR 15-29 Severely Decreased</content>
<content>Stage V GFR <15 Very Little GFR Left</content>
<content>ESRD GFR <15 on CURRICULUM FACILITATOR</content>
<content></content> Sodium Level 132 meq/L 136-145 [facility] Potassium Serum 4.7 meq/L 3.5-5.1 [facility] ([facility]) Chloride Level 96 meq/L 98-107 [facility] ([facility] Carbon Dioxide Level 30 meq/L 21-32 [facility] ([facility]) Anion Gap 6 meq/L 8-16 [facility] ([facility]) Calcium Level 9.3 mg/dL 8.8-10.2 [facility] ([facility]) ID Date Data Source [id number] 08/28/2020 02:11:00 PM EDT MED[facility] ([facility]) Name Value Range Interpretation Code Description Data Marilu rce(s) Supporting Document(s) Creatinine For GFR 1.46 mg/dL 0.70-1.30 [facility] ([facility]) Blood Urea Nitrogen 29 mg/dL 7-18 [facility] ([facility]) Glucose, Fasting 441 mg/dL 70-100 Above upper panic limits MED[facility] ([facility]) Sodium Level 132 meq/L 136-145 [facility] ([facility]) Glomerular Filtration Rate 51.3 MED E[facility] ([facility]) <content>Units are mL/min/1.73 m2</content>
<content></content>
<content>Chronic Kidney Disease Staging per NKF:</content>
<content></content>
<content>Stage I & II GFR >=60 Normal to Mildly Decreased</content>
<content>Stage III GFR 30- 59 Moderately Decreased</content>
<content>Stage IV GFR 15-29 Severely Decreased</content>
<content>Stage V GFR <15 Very Little GFR Left</content>
<content>ESRD GFR <15 on CURRICULUM FACILITATOR</content>
<content></content> Potassium Serum 4.7 meq/L 3.5-5.1 [facility] ([facility]) Carbon Dioxide Level 30 meq/L 21-32 [facility]) Chloride Level 96 meq/L 98-107 [facility] ([facility]) Anion Gap 6 meq/L 8-16 [facility]) Calcium Level 9.3 mg/dL 8.8-10.2 [facility] ([facility]) ID Date Data Source [id number] 08/28/2020 02:11:00 PM EDT MED[facility] ([facility]) Name Value Range Interpretation Code Description Data Marilu rce(s) Supporting Document(s) Hubert/Creat Ratio 36.6 MCG/MG 0.0-30.0 MED[facility] ([facility]) THE CITIZ[place] [employer] STATES THAT MICROALBUMINURIA IS PRESENT IF THE MICROALBUMIN/CREATININE RATIO EXCEEDS 30 MCG/MG. THE THRESHOLD FOR CLINICAL ALBUMINURIA IS REACHED AT 300 MCG/MG. THE CLASSIFICATION OF A PATIENT SHOULD BE BASED UPON AT LEAST 2 OF 3 ABNORMAL RESULTS ON SPECIMENS COLLECTED WITHIN A 3 TO 6 MONTH TIME FRAME. Creatinine, Urine 54.3 mg/dL MED[facility] ([facility]) Malb Urine Siemens 19.9 mg/L MED[facility] ([facility]) ID Date Data Source [id number] 08/06/2020 02:44:00 PM EDT MED[facility] ([facility] ) Name Value Range Interpretation Code Description Data Marilu rce(s) Supporting Document(s) Glucose [Mass/volume] in Serum or Plasma 270 [facility] ([facility] ) Hemoglobin A1c/Hemoglobin.total in Blood 11.0 MED[facility] ([facility]) ID Date Data Source [id number] 07/30/2020 09:48:00 AM EDT MED[facility] ([facility]) Name Value Range Interpretation Code Description Data Marilu rce(s) Supporting Document(s) Urea nitrogen [Mass/volume] in Serum or Plasma 28 mg/dL 7-18 MED[facility] ([facility]) Glucose [Mass/volume] in Serum or Plasma 173 mg/dL 74-99 [facility] ([facility]) 100-125 mg/dL PRE-DIABETES/FASTING >126 mg/dL DIABETES/FASTING Creatinine 1.6 mg/dL 0.6-1.3 [facility] ([facility]) Potassium [Moles/volume] in Serum or Plasma 4.1 meq/L 3.5-5.1 [facility] ([facility]) Chloride [Moles/volume] in Serum or Plasma 103 meq/L 98-107 [facility] ([facility]) Sodium [Moles/volume] in Serum or Plasma 141 meq/L 136-145 MED[facility] ([facility]) Glomerular filtration rate/1.73 sq M pre dicted among non-blacks [Volume Rate/Area] in Serum or Plasma by Creatinine-based formula (MDRD) 43 mL/min MEDENT ([facility]) Calcium [Mass/volume] in Serum or Plasma 9.4 mg/dL 8.5-10.1 [facility] ([facility]) Carbon dioxide, total [Moles/volume] in Serum or Plasma 25 meq/L 21 -32 [facility] ([facility]) Glomerular filtration rate/1.73 sq M pre dicted among blacks [Volume Rate/Area] in Serum or Plasma by Creatinine-based formula (MDRD) 53 mL/min [facility] ([facility]) <content>CHRONIC KIDNEY DISEASE STAGING PER NKF</content>
<content></content>
<content>STAGE I & II GFR >= 60 NORMAL TO MILDLY DECREASED</content>
<content>STAGE III GFR 30-59 MODERATELY DECREASED</content>
<content>STAGE IV GFR 15-29 SEVERELY DECREASED</content>
<content>STAGE V GFR <15 VERY LITTLE GFR LEFT</content>
<content>ESRD GFR <15 ON CURRICULUM FACILITATOR</content>
<content></content> ID Date Data Source [id number] 06/19/2020 01:16:00 PM EDT [facility] ([facility]) Name Value Range Interpretation Code Description Data Marilu rce(s) Supporting Document(s) Leukocytes [#/volume] in Blood by Automated count 5.7 x10*3/UL 4.1-10 .9 [facility] ([facility]) Hemoglobin [Mass/volume] in Blood 16.8 g/dL 12.0-18.0 [facility] ([facility]) Erythrocytes [#/volume] in Blood by Automated count 5.43 x10*6/UL 4.2 0-6.30 [facility] ([facility]) Hematocrit [Volume Fraction] of Blood by Automated count 50.8 % 3 7.0-51.0 [facility] ([facility]) MCH 31.0 pg 26.0-32.0 [facility] MCV 93.5 fL 80.0-97.0 [facility] ([facility]) MCHC 33.1 g/dL 31.0-38.0 [facility] ([facility]) MPV 8.7 FL 7.8-11.0 [facility]) Lymph % 18.0 % 10.0-58.5 [facility] ([facility]) Erythrocyte distribution width [Ratio] by Automated count 13.3 % 11.6-13.7 [facility] Platelets [#/volume] in Blood by Automated count 126 x10*3/UL 140-440 [facility] ([facility]) Lymph # 1.0 x10*3/UL 0.6-4.1 [facility] ([facility]) Neut % 75.9 % 37.0-92.0 [facility] [facility]) Mid % 6.1 % 1.7-9.3 [facility]) Neut # 4.3 x10*3/UL 2.0-7.8 [facility] ([facility]) Mid # 0.4 x10*3/UL 0.1-0.6 [facility] ([facility]) ID Date Data Source [id number] 06/19/2020 01:16:00 PM EDT [facility] ([facility]) Name Value Range Interpretation Code Description Data Marilu rce(s) Supporting Document(s) Urea nitrogen [Mass/volume] in Serum or Plasma 27 mg/dL 7-18 [facility] ([facility]) Glucose [Mass/volume] in Serum or Plasma 207 mg/dL 74-99 [facility] ([facility]) 100-125 mg/dL PRE-DIABETES/FASTING >126 mg/dL DIABETES/FASTING Chloride [Moles/volume] in Serum or Plasma 104 meq/L 98-107 [facility] ([facility]) Sodium [Moles/volume] in Serum or Plasma 143 meq/L 136-145 [facility] ([facility]) Creatinine 1.4 mg/dL 0.6-1.3 [facility] ([facility]) Potassium [Moles/volume] in Serum or Plasma 4.1 meq/L 3.5-5.1 [facility] ([facility]) Carbon dioxide, total [Moles/volume] in Serum or Plasma 29 meq/L 21 -32 [facility] Glomerular filtration rate/1.73 sq M pre dicted among non-blacks [Volume Rate/Area] in Serum or Plasma by Creatinine-based formula (MDRD) 51 mL/min [facility] Calcium [Mass/volume] in Serum or Plasma 9.1 mg/dL 8.5-10.1 [facility] Glomerular filtration rate/1.73 sq M pre dicted among blacks [Volume Rate/Area] in Serum or Plasma by Creatinine-based formula (MDRD) Laboratory test result [facility] <content>CHRONIC KIDNEY DISEASE STAGING PER NKF</content>
<content></content>
<content>STAGE I & II GFR >= 60 NORMAL TO MILDLY DECREASED</content>
<content>STAGE III GFR 30-59 MODERATELY DECREASED</content>
<content>STAGE IV GFR 15-29 SEVERELY DECREASED</content>
<content>STAGE V GFR <15 VERY LITTLE GFR LEFT</content>
<content>ESRD GFR <15 ON CURRICULUM FACILITATOR</content>
<content></content> ID Date Data Source [id number] 03/20/2020 03:07:00 PM EDT [facility] ([facility]) Name Value Range Interpretation Code Description Data Marilu rce(s) Supporting Document(s) Hemoglobin A1c/Hemoglobin.total in Blood 7.7 [facility] ([facility]) Glucose [Mass/volume] in Serum or Plasma 162 [facility] ([facility]) ID Date Data Source [id number] 01/17/2020 09:36:00 AM EDT [facility] ([facility]) Name Value Range Interpretation Code Description Data Marilu rce(s) Supporting Document(s) Cholesterol [Mass/volume] in Serum or Plasma 180 mg/dL 131-200 [facility] ([facility]) Triglyceride [Mass/volume] in Serum or Plasma 95 mg/dL 30-150 [facility] ([facility]) Cholesterol in HDL [Mass/volume] in Serum or Plasma 43 mg/dL 35-60 [facility] ([facility]) Cholesterol in LDL [Mass/volume] in Serum or Plasma by calcu lation 118 CALC 50-159 [facility] ([facility]) ID Date Data Source [id number] 01/17/2020 09:36:00 AM EDT [facility] ([facility]) Name Value Range Interpretation Code Description Data Marilu rce(s) Supporting Document(s) Glucose [Mass/volume] in Serum or Plasma 154 mg/dL 74-99 [facility] ([facility]) 100-125 mg/dL PRE-DIABETES/FASTING >126 mg/dL DIABETES/FASTING Creatinine 1.2 mg/dL 0.6-1.3 [facility] Sodium [Moles/volume] in Serum or Plasma 144 meq/L 136-145 [facility] ([facility]) Urea nitrogen [Mass/volume] in Serum or Plasma 19 mg/dL 7-18 [facility] ([facility]) Potassium [Moles/volume] in Serum or Plasma 4.3 meq/L 3.5-5.1 [facility] ([facility]) Carbon dioxide, total [Moles/volume] in Serum or Plasma 28 meq/L 21 -32 [facility] ([facility]) Calcium [Mass/volume] in Serum or Plasma 9.0 mg/dL 8.5-10.1 [facility] ([facility]) Chloride [Moles/volume] in Serum or Plasma 103 meq/L 98-107 [facility] ([facility]) Aspartate aminotransferase [Enzymatic activity/volume] in Serum or Plasma 22 U/L 15-37 [facility] ([facility] ) Total Bilirubin 0.8 mg/dL 0.2-1.0 [facility] ([facility]) Alkaline phosphatase isoenzyme [Units/volume] in Serum or Pl asma 58 mg/dL 46-116 [facility] ([facility]) Albumin [Mass/volume] in Serum or Plasma 4.3 g/dL 3.4-5.0 [facility] ([facility]) A/G Ratio 1.30 CALC 1.00-1.90 [facility]) Proteinase 3 Ab [Units/volume] in Serum 7.6 g/dL 6.4-8.2 [facility] ([facility]) Alanine aminotransferase [Enzymatic activity/volume] in Seru m or Plasma 35 U/L 12-78 [facility] ([facility]) Glomerular filtration rate/1.73 sq M pre dicted among non-blacks [Volume Rate/Area] in Serum or Plasma by Creatinine-based formula (MDRD) Laboratory test result [facility] Glomerular filtration rate/1.73 sq M pre dicted among blacks [Volume Rate/Area] in Serum or Plasma by Creatinine-based formula (MDRD) Laboratory test result [facility] <content>CHRONIC KIDNEY DISEASE STAGING PER NKF</content>
<content></content>
<content>STAGE I & II GFR >= 60 NORMAL TO MILDLY DECREASED</content>
<content>STAGE III GFR 30-59 MODERATELY DECREASED</content>
<content>STAGE IV GFR 15-29 SEVERELY DECREASED</content>
<content>STAGE V GFR <15 VERY LITTLE GFR LEFT</content>
<content>ESRD GFR <15 ON CURRICULUM FACILITATOR</content>
<content></content> ID Date Data Source [id number] 01/17/2020 09:36:00 AM EDT [facility] ([facility]) Name Value Range Interpretation Code Description Data Marilu rce(s) Supporting Document(s) Leukocytes [#/volume] in Blood by Automated count 4.5 x10*3/UL 4.1-10 .9 [facility] ([facility]) Hematocrit [Volume Fraction] of Blood by Automated count 53.0 % 3 7.0-51.0 [facility] ([facility]) Hemoglobin [Mass/volume] in Blood 18.0 g/dL 12.0-18.0 [facility] ([facility]) Erythrocytes [#/volume] in Blood by Automated count 5.93 x10*6/UL 4.2 0-6.30 [facility] ([facility]) MCH 30.3 pg 26.0-32.0 [facility] [facility] MCV 89.4 fL 80.0-97.0 [facility] ([facility] [facility]) Platelets [#/volume] in Blood by Automated count 150 x10*3/UL 140-440 [facility] ([facility]) MCHC 33.9 g/dL 31.0-38.0 [facility] [facility] MPV 8.3 FL 7.8-11.0 [facility] ([facility]) Erythrocyte distribution width [Ratio] by Automated count 13.8 % 11.6-13.7 [facility] ([facility]) Mid % 6.7 % 1.7-9.3 [facility] [facility] Lymph % 21.0 % 10.0-58.5 [facility] [facility] Neut % 72.3 % 37.0-92.0 [facility] [facility] Neut # 3.2 x10*3/UL 2.0-7.8 [facility] ([facility]) Mid # 0.4 x10*3/UL 0.1-0.6 [facility] ([facility]) Lymph # 0.9 x10*3/UL 0.6-4.1 [facility] ([facility]) ID Date Data Source [id number] 12/19/2019 10:40:00 AM EST [facility] ([facility]) Name Value Range Interpretation Code Description Data Marilu rce(s) Supporting Document(s) Glucose [Mass/volume] in Serum or Plasma 102 [facility] ([facility]) Hemoglobin A1c/Hemoglobin.total in Blood 9.8 [facility] ([facility]) Procedure Social History Code Duration Value Status Description Data Source(s ) Smoking 11/12/2020 12:00:00 AM EST Patient has never smoked co mpleted Patient has never smoked [facility] ([facility]) Smoking 07/31/2020 12:00:00 AM EDT Patient has never smoked co mpleted Patient has never smoked [facility] ([facility] ) Vital Signs ID Date Data Source UNK Name Value Range Interpretation Code Description Data Source(s) Oxygen saturation in Arterial blood by Pulse oximetry 98 % 98 % [facility] ([facility]) Body mass index (BMI) [Ratio] 38.6 kg/m2 38.6 k g/m2 [facility] ([facility]) Body weight 325.38 [lb_av] 325.38 [lb_av] MEDEN T ([facility]) Body height 77 [in_i] 77 [in_i] [facility] ([facility]) 6'5" Body temperature 96.9 [degF] 96.9 [degF] [facility] ([facility]) Heart rate 87 /min 87 /min [facility] ([facility]) Diastolic blood pressure 76 mm[Hg] 76 mm[Hg] [facility] ([facility]) Systolic blood pressure 146 mm[Hg] 146 mm[Hg] M EDENT ([facility]) Oxygen saturation in Arterial blood by Pulse oximetry 97 % 97 % [facility] ([facility]) Body mass index (BMI) [Ratio] 38.2 kg/m2 38.2 k g/m2 [facility] ([facility]) Body weight 322.25 [lb_av] 322.25 [lb_av] MEDEN T ([facility]) Body height 77 [in_i] 77 [in_i] [facility] ([facility]) 6'5" Heart rate 77 /min 77 /min [facility] ([facility]) Diastolic blood pressure 80 mm[Hg] 80 mm[Hg] [facility] ([facility]) Systolic blood pressure 124 mm[Hg] 124 mm[facility]Hg[facility] Body weight 143.791 kg 143.791 kg [facility] ([facility]) [place] body weight 202 [lb_av] 202 [lb_av] MEDEN T ([facility]) Body mass index (BMI) [Ratio] 38.6 kg/m2 38.6 k g/m2 [facility] ([facility]) Body weight 317.00 [lb_av] 317.00 [lb_av] [facility] T ([facility]) Body height 76 [in_i] 76 [in_i] [facility] ([facility]) 6'4" Body temperature 98.6 [degF] 98.6 [degF] [facility] ([facility]) Oxygen saturation in Arterial blood by Pulse oximetry 96 % 96 % [facility] ([facility]) Heart rate 76 /min 76 /min [facility] ([facility]) Diastolic blood pressure 72 mm[Hg] 72 mm[Hg] [facility] ([facility]) Systolic blood pressure 120 mm[Hg] 120 mm[Hg] [facility] ([facility]) Body mass index (BMI) [Ratio] 38.6 kg/m2 38.6 k g/m2 [facility] ([facility]) Oxygen saturation in Arterial blood by Pulse oximetry 98 % 98 % [facility] ([facility]) Air Body weight 317.00 [lb_av] 317.00 [lb_av] MEDEN T ([facility]) Body height 76 [in_i] 76 [in_i] [facility] 6'4" Heart rate 74 /min 74 /min [facility] ([facility]) Diastolic blood pressure 80 mm[Hg] 80 mm[Hg] [facility] Systolic blood pressure 122 mm[Hg] 122 mm[Hg] M [facility] ([facility]) Body mass index (BMI) [Ratio] 40.7 kg/m2 40.7 k g/m2 [facility] ([facility]) Body weight 334.00 [lb_av] 334.00 [lb_av] MEDEN T ([facility]) Body height 76 [in_i] 76 [in_i] [facility] ([facility]) 6'4" Diastolic blood pressure 80 mm[Hg] 80 mm[Hg] [facility] ([facility]) Systolic blood pressure 150 mm[Hg] 150 mm[Hg] M [facility] ([facility]) Body mass index (BMI) [Ratio] 39.7 kg/m2 39.7 k g/m2 [facility] ([facility]) Oxygen saturation in Arterial blood by Pulse oximetry 97 % 97 % [facility] RM Air Body weight 326.00 [lb_av] 326.00 [lb_av] MEDEN T ([facility]) Body height 76 [in_i] 76 [in_i] [facility] ([facility]) 6'4" Heart rate 78 /min 78 /min [facility] ([facility]) Diastolic blood pressure 80 mm[Hg] 80 mm[Hg] [facility] Systolic blood pressure 130 mm[Hg] 130 mm[Hg] [facility] ([facility]) Body mass index (BMI) [Ratio] 40.7 kg/m2 40.7 k g/m2 [facility] ([facility] Body weight 343.50 [lb_av] 343.50 [lb_av] [facility] T ([facility]) Body height 77 [in_i] 77 [in_i] [facility] ([facility] ) 6'5" Body mass index (BMI) [Ratio] 43.3 kg/m2 43.3 k g/m2 [facility] ([facility]) Oxygen saturation in Arterial blood by Pulse oximetry 95 % 95 % [facility] ([facility]) RM Air Body weight 356.00 [lb_av] 356.00 [lb_av] MEDEN T ([facility]) Body height 76 [in_i] 76 [in_i] [facility] ([facility]) 6'4" Heart rate 69 /min 69 /min [facility] ([facility]) Diastolic blood pressure 80 mm[Hg] 80 mm[Hg] [facility] ([facility]) Systolic blood pressure 130 mm[Hg] 130 mm[Hg] M SHIREEN ([facility]) Oxygen saturation in Arterial blood by Pulse oximetry 97 % 97 % [facility] ([facility]) Body mass index (BMI) [Ratio] 43.8 kg/m2 43.8 k g/m2 [facility] ([facility]) Body weight 369.31 [lb_av] 369.31 [lb_av] LARISSA [facility] ([facility]) Body height 77 [in_i] 77 [in_i] [facility] ([facility]) 6'5" Heart rate 73 /min 73 /min [facility] ([facility]) Diastolic blood pressure 90 mm[Hg] 90 mm[Hg] [facility] ([facility] ) Systolic blood pressure 144 mm[Hg] 144 mm[Hg] SHIREEN ([facility])
--- OUTSIDE RECORDS SUMMARY | 2020-12-26 14:51 | CCD | Continuity of Care Document ---
Author Author Marcus BAEZ MD Organization Unknown Address [address] [place] [address], [address] [place] [address] Phone [phone] Care Team Providers Care High Lift Operator Name Role Phone Rosalie Jeffrey RN Canp AUTM [phone] Problems Active Problems Provider Date Type 2 [...] 10.2 Glucose 250 Basic Metabolic Profile 08/28/2020 [facility] [address] [place] [address] (301)- - Glucose, Fasting 441 mg/dL Critical high [...] Normal 8.8-10.2 Urine Micro/Creat Ratio Random 08/28/2020 [facility] [address] [place] [address] (212)- - Creatinine, Urine 54.3 mg/dL Normal Malb [...] Little GFR Left ESRD GFR <15 on KEYBOARD OPERATOR 2 THE [place] [employer] ATION STATES THAT MICROALBUMINURIA IS PRESENT IF THE MICROALBUMIN/CREATININE RATIO EXCEEDS 30 MCG/MG. THE THRESHOLD FOR CLINICAL ALBUMINURIA IS REACHED AT 300 MCG/MG. THE CLASSIFICATION OF A PATIENT SHOULD BE BASED UPON AT LEAST 2 OF 3 ABNORMAL RESULTS ON SPECIMENS COLLECTED WITHIN A 3 TO 6 MONTH TIME FRAME. Procedures Date Code Description Status 07/10/2020 [id number] Diabetic Foot Exam Completed Medical Devices Description No Information Available Encounters Type Date Location Provider Dx Diagnosis Office Visit 08/06/2020 2:30p DR. Sonya Baez MD Z 79.4 halfway (current) use of insulin E11.65 Type 2 diabetes mellitus wit h hyperglycemia E11.40 Type 2 diabetes mellitus wit h diabetic neuropathy, unsp Z68.41 Body mass index [BMI]40.0-44 .9, adult E66.01 Morbid (severe) obesity due to excess calories E78.00 Pure hypercholesterolemia, u nspecified Assessments Date Code Description Provider 11/12/2020 Z79.4 superintendent terminal (current) use of insul in Sonya Baez [...] unspe cified Sonya Baez MD 08/06/2020 Z79.4 halfway (current) use of insul in Sonya Baez [...] unspe cified Sonya Baez MD 07/10/2020 Z79.4 halfway (current) use of insul in Sonya Baez [...] MD 07/10/2020 E78.00 Pure hypercholesterolemia, unspe cified Soyna Baez MD Plan of Treatment 11/12/2020 - Sonya Baez MD* Z79.4 superintendent terminal (current) use of insulin* Comments:* self d/marc 12/2019 We'll restart Humalog today with starchy meals. * E11.65 Type 2 diabetes mellitus with hyperglycemia* Comments:* In office A1c =11-" i added potatoes to a few meals, no candy, no dairy, no fruit"BS= 270Markedly decompensated.He reports one episode where he took [...] twice a day. Jardiance 25 ( started 04/12/19)RECS:Restart mealtime insulin: take 10 units with a meal that has starchThis unusual that he has decompensated to such an extent although he is probably eating more potatoes and he admits. He had his A1c under control in the spring when he continued on the KETO diet.He states that the potatoes from his guardian are almost gone and he will do better in the future. He does continue to lose weight.. * Follow up:* 3 months - 2 labs * E11.40 Type 2 diabetes mellitus with [...]
--- NOTE | 2020-12-26 16:17 | REP ---
INDICATION: N/V/D. COMPARISON: No comparison chest x-ray.. TECHNIQUE: Portable upright AP radiograph. FINDINGS: There are patchy infiltrates bilaterally in the lung pierre. Left perihilar ill-defined infiltrate and opacification below the minor fissure on the right. Consistent with pneumonia. Heart size is borderline. Pulmonary vasculature is not increased. Pleural angles are sharp. No acute bony abnormality. IMPRESSION: Bilateral infiltrates consistent with pneumonia. <Electronically signed by Seng Lockett > 12/26/20 [id number]
[2020-12-26] MEDS ORDERED: HumuLIN R (REGULAR) INSULIN (NovoLIN R) **100U/ML** PER UNIT IV ONE ×2 (16:20→18:05)
[2020-12-26] MEDS ORDERED: LABETALOL 100MG/20ML VIAL IV STA (16:54)
[2020-12-26 17:00] VITALS: BP 169/78
[2020-12-26] MEDS ORDERED: PROAAER10 INH (18:14)
[2020-12-26] MEDS ORDERED: ZOFR4TAB16 PO (18:14)
[2020-12-26 18:34] VITALS: BP 139/69
--- NOTE | 2020-12-27 09:30 | ECGEPIP ---
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
== END 2020-12-26 19:48 | disposition home or self-care (01) ==
LOC: M ED 13:09 → EDBD 13:09 → M ED 19:48
DX: U07.1 COVID-19 (principal); E11.65 Type 2 diabetes mellitus with hyperglycemia; I10 Essential (primary) hypertension; E78.5 Hyperlipidemia, unspecified; Z79.899 Other long term (current) drug therapy; Z79.84 Long term (current) use of oral hypoglycemic drugs
CPT/HCPCS: 36415; 71045; 74176; 80048; 80076; 82150; 83690; 85025; 85610; 87798; 93005; 96361; 96374; 96375; 96376; 99285; C9113; J2405

== ENCOUNTER 2020-12-30 17:30 | Inpatient (IN) | payer MEDICARE ==
[~2020-12-30] VITALS: Ht 198.1 cm; Wt 152.4 kg
[~2020-12-30 17:30] MED LIST: AMLO1TAB25 PO; ATOR1TAB19 PO; DULA3PEN SUBQ; DULO1CAP5 PO; FURO40TA2 PO; GABA800T4 PO; IRBE150T7 PO; JARD1TAB3 PO; METF10004 PO; PROAAER10 INH; VANCOMYCIN HCL 500 MG in D5W MINI-BAG PLUS 100 ML IV ONE; ZOFR4TAB16 PO
[2020-12-30] MEDS ORDERED: NS 1,000 ML IV SCH (17:45)
[2020-12-30 18:04] LABS: BASO # 0.1 10^3/uL (0.0-0.2); HEMOGLOBIN 17.7 g/dl (13.5-17.5); LYMPH # 0.3 10^3/uL (1.5-5.0); LYMPH % 4.7 % (24.0-44.0); MEAN CORPUSCULAR HEMOGLOBIN 29.9 pg (27.0-33.0); MONO # 0.6 10^3/uL (0.0-0.8); MONO % 8.5 % (2.0-8.0); NEUTROPHILS # 5.5 10^3/uL (1.5-8.5); NEUTROPHILS % 80.9 % (36.0-66.0); PLATELET COUNT, AUTOMATED 127 10^3/uL (150-450); RED BLOOD COUNT 5.91 10^6/uL (4.30-6.10); WHITE BLOOD COUNT 6.7 10^3/uL (4.0-10.0)
[2020-12-30 18:16] LABS: INR 1.08; PROTHROMBIN TIME 14.2 SECONDS (12.5-14.3)
[2020-12-30] MEDS ORDERED: ISOVUE-370 76% 100ML VIAL As Ordered ONE (18:16)
[2020-12-30 18:17] LABS: PARTIAL THROMBOPLASTIN TIME 25.5 SECONDS (24.2-38.5)
[2020-12-30 18:20] LABS: D-DIMER QUANT 3283.76 ng/ml (<500)
--- NOTE | 2020-12-30 18:25 | REP ---
INDICATION: Coronavirus workup. COMPARISON: 12/26/2020. TECHNIQUE: SINGLE PORTABLE AP VIEW OF THE CHEST WAS PERFORMED. FINDINGS: Scattered ill-defined infiltrates are again seen bilaterally left greater than right. The infiltrates on the right may be slightly improved.The infiltrates on the left have mildly increased. Heart and mediastinum are unchanged. IMPRESSION: Scattered bilateral, predominantly peripheral infiltrates, improved on the right and increased on the left. <Electronically signed by Brannon Tatum > 12/30/20 [id number]
[2020-12-30 18:34] LABS: ALBUMIN 2.9 GM/DL (3.2-5.2); ALT/SGPT 23 U/L (12-78); BILIRUBIN,TOTAL 0.7 MG/DL (0.2-1.0); BLOOD UREA NITROGEN 27 MG/DL (7-18); CALCIUM LEVEL 7.8 MG/DL (8.8-10.2); CARBON DIOXIDE LEVEL 9 MEQ/L (21-32); CHLORIDE LEVEL 103 MEQ/L (98-107); CK-MB VALUE MASS 5.1 NG/ML (<3.6); CPK CREATINE PHOSPHOKINASE 144 U/L (39-308); CREATININE FOR GFR 1.46 MG/DL (0.70-1.30); FERRITIN 1461 NG/ML (26-388); GLOMERULAR FILTRATION RATE 51.3 (>49); GLUCOSE, FASTING 341 MG/DL (70-100); LDH LACTATE DEHYDROGENASE 391 U/L (87-241); MAGNESIUM LEVEL 2.1 MG/DL (1.8-2.4); MB/CK RELATIVE INDEX 3.54 (< OR =4); POTASSIUM SERUM 3.6 MEQ/L (3.5-5.1); SODIUM LEVEL 133 MEQ/L (136-145); TOTAL PROTEIN 6.8 GM/DL (6.4-8.2); TROPONIN I 0.02 NG/ML (< 0.10)
[2020-12-30] MEDS ORDERED: ONDA-83 PO (19:25)
[2020-12-30] MEDS ORDERED: DULO1CAP5 PO (19:25)
[2020-12-30] MEDS ORDERED: ALBU8.5H INH (19:26)
[2020-12-30] MEDS ORDERED: MOM 30ML SUSPENSION UDC PO PRN (19:35)
[2020-12-30] MEDS ORDERED: MAALOX 30 ML SUSP *UDC PO PRN (19:35)
[2020-12-30] MEDS ORDERED: GLUCAGON INJ 1MG VIAL SC PRN (19:35)
[2020-12-30] MEDS ORDERED: GLUCOSE 4GM CHEW TABLET PO PRN (19:35)
[2020-12-30] MEDS ORDERED: DEXTROSE 50% 50 ML SYRINGE IV PRN (19:35)
[2020-12-30] MEDS ORDERED: ACETAMINOPHEN TAB 650MG DOSE (2X325MG) PO PRN (19:35)
[2020-12-30] MEDS ORDERED: MED REC COMMENT (19:55)
--- NOTE | 2020-12-30 20:11 | REPVR ---
PROCEDURE INFORMATION: Exam: CT Angiography Chest With Contrast Exam date and time: 12/30/2020 7:08 PM Age: 65 years old Clinical indication: Chest pain. COVID+ TECHNIQUE: Imaging protocol: Computed tomographic angiography of the chest with contrast. 3D rendering (Not supervised by radiologist): MIP and/or 3D reconstructed images were created by the technologist. Radiation optimization: All CT scans at this facility use at least one of these dose optimization techniques: automated exposure control; mA and/or kV adjustment per patient size (includes targeted exams where dose is matched to clinical indication); or iterative reconstruction. Contrast material: ISOVUE 370; Contrast volume: 75 ml; Contrast route: INTRAVENOUS (IV); COMPARISON: 1. OK PORTABLE CHEST X-RAY 12/30/2020 6:[address] ABD PELVIS W/O CONTRAST 12/26/2020 2:01:44 PM FINDINGS: Limitations: Respiratory motion artifact degrades the image quality. Pulmonary arteries: There is no pulmonary embolism in the main or lobar pulmonary arteries. The timing of the contrast bolus was suboptimal for the assessment of the segmental and subsegmental pulmonary arteries, which are poorly opacified and degraded by respiratory motion artifact. Aorta: The thoracic aorta is dilated. The ascending aorta measures 4 cm x 4.3 cm in diameter and the descending thoracic aorta measures 3.3 cm x 3.3 cm in diameter at the level of the pulmonary artery trunk. No thoracic aortic dissection, aneurysm, intramural hematoma, or penetrating atherosclerotic ulcer is noted. Thyroid: Unremarkable. Trachea: Patent. Bronchial tree: Patent. Lungs: There are ground-glass opacities in a predominantly peripheral distribution, with areas of superimposed consolidation and intralobular septal thickening (?crazy-paving?) in both lungs, which can also be seen in the lung bases in the CT abdomen and pelvis on 12/26/2020. No cavitary lesion is noted. Pleural spaces: Normal. No pneumothorax or pleural effusion. Heart: No cardiomegaly or pericardial effusion. The ratio of the diameter of the right ventricle to the diameter of the left ventricle measures less than 1, which is within normal limits and there is no CT evidence for a right ventricular strain. Mediastinal space: No mediastinal mass, fluid collection, or pneumomediastinum. Lymph nodes: There is a 15 mm subcarinal lymph node. Other subcentimeter mediastinal lymph nodes are present. Diaphragm: Intact. Bones/joints: There is no fracture or dislocation. No suspicious osteolytic or osteoblastic lesion. There are bridging paraspinal osteophytes at multiple contiguous levels in the thoracic spine, which are findings compatible with diffuse idiopathic skeletal hyperostosis. Soft tissues: Unremarkable. No soft tissue fluid collection. IMPRESSION: 1. No pulmonary embolism in the main or lobar pulmonary arteries. The timing of the contrast bolus was suboptimal for the assessment of the segmental and subsegmental pulmonary arteries, which are poorly opacified and degraded by respiratory motion artifact. 2. Ground-glass opacities in a predominantly peripheral distribution, with areas of superimposed consolidation and intralobular septal thickening (?crazy-paving?) in both lungs, which can also be seen in the lung bases in the CT abdomen and pelvis on 12/26/2020 and as reported in the CT abdomen and pelvis report on 12/26/2020, can be seen with COVID-19 pneumonia. Commonly reported imaging features of COVID-19 pneumonia are present. Other processes such as influenza pneumonia and organizing pneumonia, as can be seen with drug toxicity and connective tissue disease, can cause a similar imaging pattern. (Reference: Yasmani) 3. Dilated ascending and descending thoracic aorta. No thoracic aortic aneurysm, dissection, intramural hematoma, or penetrating atherosclerotic ulcer. 4. Subcarinal lymphadenopathy. REFERENCES: Yasmani Talavera, et al., Radiological Society of [place] Expert Consensus Statement on Reporting Chest CT Findings Related to COVID-19. Endorsed by the Society of Thoracic Radiology, the [place] [employer], and RSNA. Published January 25, 2020. Electronically signed by: Anderson Bruce On 12/30/2020 20:12:05 PM
--- NOTE | 2020-12-30 20:35 | ECGEPIP ---
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
[2020-12-30] MEDS: HumaLOG INSULIN (NovoLOG) PER UNIT SC SCH ×2 (20:50→23:49)
[2020-12-30 21:35] VITALS: BP 151/67
--- NOTE | 2020-12-30 22:50 | HPEPDOC ---
[facility] Medical History & Physical Date of Admission Dec 30, 2020 Date of Service: Dec 30, 2020 Attending Physician: ALBARO ZARATE MD History and Physical TIME OF SERVICE: 1010pm CHIEF COMPLAINT: dyspnea HISTORY OF PRESENT ILLNESS: This 65 yr old M presented w c/o 7 day in duration dyspnea associated with a dry cough, subjective fevers and chills, and reduced appetite. He denied having n/v/d or rash. He was diagnosed with COVD 19 on Dec 26. In the ER his O2 sats were only 93% despite 2L of oxygen. Per d/w his RN in the ER the patient had an ulcer on the plantar aspect of his left large toe. REVIEW OF SYSTEMS: 12-point review of systems negative except as listed in HPI PAST MEDICAL/ SURGICAL HISTORY: Essential HTN NIDDM2 w neuropathy DLP Gout Class 3 obesity DENEEN 15cm H2O Left sided nephrolithiasis managed w ESWL SOCIAL HISTORY: He doesnt smoke, or drink alcohol is , has 2 children and works as a automotive mechanical engineer. FAMILY HISTORY: Nephrolithiasis ALLERGIES: Please see below. HOME MEDICATIONS: Please see below. PHYSICAL EXAMINATION: Vital Signs Date Time Temp Pulse Resp B/P (MAP) Pulse Ox O2 Delivery O2 Flow Rate FiO2 12/30/20 17:35 103 28 184/109 92 Room Air 12/30/20 20:00 4.0 12/30/20 21:00 98.9 GENERAL APPEARANCE: well nourished and developed / irritable HEENT: NC in place /not wearing mask MMM&P CARDIOVASCULAR: tachycardic /NMRG LUNGS: coughing / lungs are CTAB on RA ABDOMEN: obese INTEGUMENT: slightly flushed /extremities cool / livedo reticularis patter on upper legs / hyperpigmented ulcer on planter aspect of left hallux NEUROLOGICAL: speech not dysarthric PSYCHIATRIC: A&O / able to understand and follow all commands LABORATORY DATA: 12/30/20 17:53 12/30/20 17:53: Immature Granulocyte % (Auto) 4.9H, Neutrophils (%) (Auto) 80.9H, Lymphocytes (%) (Auto) 4.7L, Monocytes (%) (Auto) 8.5H, Eosinophils (%) (Auto) 0.0, Basophils (%) (Auto) 1.0, Neutrophils # (Auto) 5.5, Lymphocytes # (Auto) 0.3L, Monocytes # (Auto) 0.6, Eosinophils # (Auto) 0.0, Basophils # (Auto) 0.1, Nucleated Red Blood Cells % (auto) 0.0, Prothrombin Time 14.2H, Prothromb Time International Ratio 1.08, Activated Partial Thromboplast Time 25.5, Fibrinogen 649H, D-Dimer, Quantitative 3283.76H, Anion Gap 21H, Glomerular Filtration Rate 51.3, Lactic Acid Level 1.9, Calcium Level 7.8L, Magnesium Level 2.1, Ferritin 1461H, Total Bilirubin 0.7, Aspartate Amino Transf (AST/SGOT) 28, Alanine Aminotransferase (ALT/SGPT) 23, Alkaline Phosphatase 76, Lactate Dehydrogenase 391H, Total Creatine Kinase 144, Creatine Kinase MB 5.1H, Creatine Kinase MB Relative Index 3.54, Troponin I 0.02, C-Reactive Protein, Quantitative 11.10H, Total Protein 6.8, Albumin 2.9L, Albumin/Globulin Ratio 0.7 12/30/20 18:01: POC Glucose (Misc Panel) 347H, POC Sodium (Misc Panel) 133L, POC Potassium (Misc Panel) 3.5, POC Chloride (Misc Panel) 104, POC Total CO2 (Misc Panel) 10.0L, POC Blood Urea Nitrogen (Misc Panel 27H, POC Ionized Calcium (Misc Panel) 4.7, POC Creatinine (Misc Panel) 1.1, POC Hematocrit (Misc Panel) 54.0H IMAGING: Chest xray IMPRESSION: Scattered bilateral, predominantly peripheral infiltrates, improved on the right and increased on the left. CTA chest IMPRESSION: 1. No pulmonary embolism in the main or lobar pulmonary arteries. The timing of the contrast bolus was suboptimal for the assessment of the segmental and subsegmental pulmonary arteries, which are poorly opacified and degraded by respiratory motion artifact. 2. Ground-glass opacities in a p redominantly peripheral distribution, with areas of superimposed consolidation and intralobular septal thickening (?crazy-paving?) in both lungs, which can also be seen in the lung bases in the CT abdomen and pelvis on 12/26/2020 and as reported in the CT abdomen and pelvis report on 12/26/2020, can be seen with COVID-19 pneumonia. Commonly reported imaging features of COVID-19 pneumonia are present. Other processes such as influenza pneumonia and organizing pneumonia, as can be seen with drug toxicity and connective tissue disease, can cause a similar imaging pattern. (Reference: Yasmani) 3. Dilated ascending and descending thoracic aorta. No thoracic aortic aneurysm, dissection, intramural hematoma, or penetrating atherosclerotic ulcer. 4. Subcarinal lymphadenopathy. MICROBIOLOGY: Dec 26 Respiratory panel COVID 19 + ASSESSMENT: is a 65 yr old M w a hx of HTN, NIDDM w neuropathy, DLP, Gout, DENEEN and obesity who presented w c/o dyspnea & cough 4 days after being diagnosed with COVID 19; he will be admitted for Sepsis & hypoxemia likely 2/2 COVID19. PLAN: 1 Sepsis Likely 2/2 COVID 19 SIRS criteria: HR >90 / RR > 20 qSOFA score = 1 = not high risk Plan: admit to PCU / telemetry / abx / IVF /f/u blood cx / Acetaminophen PRN for fever / target MAP at of least 65 to 70 / f/u Is and Os with target UOP of at least 0.5 ml/kg/H / f/u [id number] w target serum glucose 140-180 while acutely ill 2 COVID-19 Plan: continuous pulse ox / supplemental O2 up to 3L with target O2 sats between 92-95% / contact & air borne precautions / f/u repeat plts (if low indicates bad prognosis), CRP (if high indicates bad prognosis), INR, BMP, fibrinogen, INR, D- dimer, PT, PTT (if patient has DIC indicates bad prognosis), ferritin, LDH, troponins (if elevated will need Echo to r/o viral cardiomyopathy) / bc he has hypoxemia will start Remdisivir & Steroids 3 Left Hallux Ulcer Plan: f/u foot xray to screen for osteomyelitis / Zosyn 4 High anion gap metabolic acidosis The lactic acid is wnl Plan: f/u VBG and add on BHB to screen for DKA he is on an Empagliflozin which can cause euglycemic DKA 5 NIDDM2 w neuropathy Plan: diabetic diet / f/u accuchecks / / hypoglycemia protocol / sliding scale insulin / hold oral anti-glycemics & Trulicity (not on formulary) / f/u A1C (target A1C is <7 to 6.5%) / Gabapentin 6 Essential HTN Amlodipine & Irbesartan 7 DLP Atorvastatin 8 Class 3 obesity He has co-existing DM, DLP, HTN and DENEEN which complicate his care Since the patients BMI > 40 he is a candidate for bariatric surgery Plan: the patient can f/u w his PCP for a construction contractor consult, to discuss staring Saxenda or Victoza to help with weight control & DM as an adjunct to exercise & referral to a Bariatric Surgeon / recommend cardiovascular exercise for 40 min 4-5 days a week DVT px w Lovenox & ASA per COVID order set Dispo: home after at least 2 midnights stay LATE ENTRY 1240AM #High anion gap metabolic acidosis 2/2 DKA The patients pH on the VBG was about 7.1 while add on BHB was high The DKA is likely due to the combination of COVID, Empagliflozin use and possibly toe infection. Plan: transfer ICU /NPO / Insulin drip per protocol/ NS @ 250ml/H w KCl / f/u blood cx, lipase, A1C / switch accuchecks Q1H, BMP Q4H, venous PH Q4H, osmol Q4H, Mag Q4H, phosphorus Q4H #Chronic Thrombocytopenia He has had thrombocytopenia since 2008 Plan: f/u Hepatitis panel Home Medications Scheduled Amlodipine Besylate (Amlodipine Besylate) 10 Mg Tablet, 10 MG PO DAILY Atorvastatin Calcium (Atorvastatin Calcium) 10 Mg Tablet, 10 MG PO DAILY Duloxetine Hcl (Duloxetine HCl) 30 Mg Capsule.dr, 30 MG PO QPM Duloxetine Hcl (Duloxetine HCl) 30 Mg Capsule.dr, 60 MG PO QAM Empagliflozin (Jardiance) 25 Mg Tablet, 25 MG PO DAILY Furosemide (Furosemide) 40 Mg Tablet, 40 MG PO DAILY Gabapentin (Gabapentin) 800 Mg Tablet, 800 TAB PO TID Irbesartan (Irbesartan) 150 Mg Tablet, 150 MG PO DAILY Metformin HCl (Metformin HCl) 1,000 Mg Tablet, 1,000 MG PO BID Scheduled PRN Albuterol Sulfate (Albuterol Sulfate Hfa) 8.5 Gm Hfa.aer.ad, 2 PUFF INH Q4-6HP PRN for SOB/WHEEZING Ondansetron HCl (Ondansetron HCl) 4 Mg Tablet, 4 MG PO Q6-8HP PRN for NAUSEA OR VOMITING Miscellaneous Medications Dulaglutide (Trulicity) 3 Mg/0.5 Ml Pen.injctr, 1 DOSE SUBQ UNABLE TO VERIFY DOSE [Med Rec Comment] USED EXTERNAL MED HISTORY, PATIENT ANSWERS "I DON'T KNOW " TO EVERYTHING ASKED. CALLED SHE DOESNT KNOW EITHER. Allergies Coded Allergies: No Known Allergies (Verified Allergy, Unknown, 12/26/20) A-FIB/CHADSVASC A-FIB History Current/History of A-Fib/PAF?: No Current PO Anticoag Therapy: No ALBARO ZARATE MD Dec 30, 2020 22:50
[2020-12-30] MEDS ORDERED: SODIUM CHLORIDE 0.9% 1000ML IV SCH (23:05)
[2020-12-30] MEDS ORDERED: ALBUTEROL 90 MCG/ACT 8GM HFA INHALER INH PRN (23:10)
[2020-12-30 23:47] LABS: ACETONE/KETONE > 46.00 MG/DL (<2.81)
[2020-12-30] MEDS: GABAPENTIN 400MG CAP PO SCH (23:48)
[2020-12-30] MEDS: DULoxetine 30 MG CAP (CYMBALTA) PO SCH (23:48)
[2020-12-30 23:54] LABS: VENOUS BASE EXCESS -18.9 (-2.0-2.0); VENOUS O2 SATURATION 77.7 % (60.0-80.0); VENOUS PARTIAL PRESSURE CO2 28.6 mmHg (38.0-50.0); VENOUS PARTIAL PRESSURE O2 43.6 mmHg (30.0-50.0); VENOUS PH 7.115 UNITS (7.330-7.430); VENOUS STANDARD HCO3 11.1 MEQ/L; VENOUS TOTAL CO2 9.9 MEQ/L (24.0-28.0)
[2020-12-31] VITALS (20 sets, daily range): BP systolic 140–180; BP diastolic 65–95; O2SAT 95–97
[2020-12-31] MEDS ORDERED: PIPERACILLIN/TAZOBACTAM SOD 4.5 GM in D5W MINI-BAG PLUS 50 ML IV SCH ×2
[2020-12-31] MEDS ORDERED: INSULIN REGULAR IN 0.9 % NACL 100 UNIT in IV 1 EA IV SCH ×2 (00:35)
[2020-12-31] MEDS ORDERED: KCL 40MEQ in NS 1000ML 1,000 ML IV SCH (00:35)
[2020-12-31] MEDS ORDERED: VANCOMYCIN HCL 1,000 MG, VIAL MATE ADAPTER 1 EACH in NS 250 ML IV ONE (01:00)
[2020-12-31 01:20] LABS: OSMOLALITY SERUM 310 MOSM/KG (280-301)
[2020-12-31 01:28] LABS: CALCIUM LEVEL 8.5 MG/DL (8.8-10.2); CREATININE FOR GFR 1.56 MG/DL (0.70-1.30); GLOMERULAR FILTRATION RATE 47.5 (>49); MAGNESIUM LEVEL 2.2 MG/DL (1.8-2.4); POTASSIUM SERUM 3.4 MEQ/L (3.5-5.1)
[2020-12-31] MEDS ORDERED: VANCOMYCIN HCL 500 MG in D5W MINI-BAG PLUS 100 ML IV ONE ×2 (02:00→04:00)
[2020-12-31] MEDS: VANCOMYCIN HCL 1,000 MG, VIAL MATE ADAPTER 1 EACH in NS 250 ML IV SCH ×5 (03:36→22:55)
[2020-12-31 04:01] LABS: VENOUS BASE EXCESS -16.3 (-2.0-2.0); VENOUS HCO3 10.1 MEQ/L (23.0-27.0); VENOUS O2 SATURATION 96.7 % (60.0-80.0); VENOUS PARTIAL PRESSURE CO2 27.5 mmHg (38.0-50.0); VENOUS PARTIAL PRESSURE O2 87.8 mmHg (30.0-50.0); VENOUS PH 7.183 UNITS (7.330-7.430); VENOUS STANDARD HCO3 12.9 MEQ/L; VENOUS TOTAL CO2 10.9 MEQ/L (24.0-28.0)
[2020-12-31] MEDS: INSULIN IV RATE CHANGE DOCUMENTATION ML/HR XX SCH ×4 (04:06→10:10)
[2020-12-31 04:27] LABS: CALCIUM LEVEL 7.7 MG/DL (8.8-10.2); CREATININE FOR GFR 1.46 MG/DL (0.70-1.30); GLOMERULAR FILTRATION RATE 51.3 (>49); MAGNESIUM LEVEL 2.1 MG/DL (1.8-2.4); POTASSIUM SERUM 3.4 MEQ/L (3.5-5.1)
[2020-12-31] MEDS ORDERED: POTASSIUM CHLORIDE INJ 30 MEQ in D5W/0.45% SODIUM CHLORIDE 1,000 ML IV SCH (04:40)
[2020-12-31] MEDS ORDERED: REMDESIVIR 200 MG in NS 250 ML IV ONE (05:00)
[2020-12-31 06:30] LABS: BASO # 0.1 10^3/uL (0.0-0.2); BASO % 0.8 % (0.0-1.0); HEMOGLOBIN 16.6 g/dl (13.5-17.5); LYMPH # 0.5 10^3/uL (1.5-5.0); LYMPH % 7.1 % (24.0-44.0); MEAN CORPUSCULAR HEMOGLOBIN 30.5 pg (27.0-33.0); MEAN CORPUSCULAR HGB CONC 35.3 g/dl (32.0-36.5); MEAN CORPUSCULAR VOLUME 86.2 fl (80.0-96.0); MONO # 0.9 10^3/uL (0.0-0.8); MONO % 12.6 % (2.0-8.0); NEUTROPHILS # 5.5 10^3/uL (1.5-8.5); NEUTROPHILS % 75.2 % (36.0-66.0); PLATELET COUNT, AUTOMATED 140 10^3/uL (150-450); RED BLOOD COUNT 5.45 10^6/uL (4.30-6.10); WHITE BLOOD COUNT 7.4 10^3/uL (4.0-10.0)
[2020-12-31 06:57] LABS: HEMOGLOBIN A1c 12.4 %
[2020-12-31 06:58] LABS: CALCIUM LEVEL 8.2 MG/DL (8.8-10.2); CREATININE FOR GFR 1.33 MG/DL (0.70-1.30); GLOMERULAR FILTRATION RATE 57.1 (>49); MAGNESIUM LEVEL 1.9 MG/DL (1.8-2.4); POTASSIUM SERUM 3.2 MEQ/L (3.5-5.1)
[2020-12-31] MEDS ORDERED: SODIUM CHLORIDE 0.9% INJ 10 ML SYR IV ONE (07:00)
[2020-12-31] MEDS ORDERED: dexameTHASONE 4 MG/ML 1ML VIAL (J1100 PER 1MG) IV SCH ×2 (09:00)
[2020-12-31] MEDS ORDERED: ENOXAPARIN 40MG/0.4ML SYRINGE (J1650 PER 10MG) SC SCH (09:00)
[2020-12-31] MEDS: PIPERACILLIN/TAZOBACTAM SOD 4.5 GM in D5W MINI-BAG PLUS 50 ML IV SCH ×3 (09:07→21:07)
[2020-12-31 09:27] LABS: CALCIUM LEVEL 7.7 MG/DL (8.8-10.2); CREATININE FOR GFR 1.31 MG/DL (0.70-1.30); GLOMERULAR FILTRATION RATE 58.1 (>49); PHOSPHORUS LEVEL 1.3 MG/DL (2.5-4.9); POTASSIUM SERUM 3.5 MEQ/L (3.5-5.1)
--- NOTE | 2020-12-31 09:47 | REP ---
INDICATION: left hallux ulcer COMPARISON: None. TECHNIQUE: AP, lateral, bilateral oblique views left foot. FINDINGS: There is significant soft tissue swelling and small focal ulceration overlying the distal aspect of the 1st toe. No foreign body. No evidence for acute or healed fracture. The osseous structures appear relatively age-appropriate and without periosteal reaction to suggest osteomyelitis by current exam. IMPRESSION: Soft tissue swelling and ulceration involving the 1st toe. <Electronically signed by Michael Silverman > 12/31/20 0960
[2020-12-31] MEDS ORDERED: LEVEMIR (INSULIN DETEMIR) 1 UNITS/0.01ML SC ONE (10:00)
[2020-12-31] MEDS ORDERED: POTASSIUM CHLORIDE 10 MEQ SR TABLET PO ONE (10:00)
[2020-12-31] MEDS ORDERED: D5W/0.45% SODIUM CHLORIDE 1,000 ML IV SCH (10:00)
[2020-12-31] MEDS: ATORVASTATIN 10 MG TAB PO SCH (10:03)
[2020-12-31] MEDS: GABAPENTIN 400MG CAP PO SCH ×3 (10:03→21:27)
[2020-12-31] MEDS: FUROSEMIDE 40 MG TAB PO SCH (10:04)
[2020-12-31] MEDS: DULoxetine 30 MG CAP (CYMBALTA) PO SCH ×2 (10:04→21:26)
[2020-12-31 10:24] LABS: ABG BASE EXCESS -11.3 (-2.0-2.0); ABG HCO3 12.1 MEQ/L (22.0-26.0); ABG O2 SATURATION 96.4 % (95.0-99.0); ABG PARTIAL PRESSURE CO2 23.2 mmHg (35.0-45.0); ABG PARTIAL PRESSURE O2 74.9 mmHg (75.0-100.0); ABG STANDARD HCO3 15.8 MEQ/L (22.0-26.0); ABG TOTAL CO2 12.8 MEQ/L (23.0-31.0); ABG pH (ARTERIAL) 7.335 UNITS (7.350-7.450)
[2020-12-31 11:46] LABS: HEPATITIS A ANTIBODY IGM NEGATIVE (NEGATIVE); HEPATITIS B CORE ANTIBODY IGM NEGATIVE (NEGATIVE); HEPATITIS B SURFACE ANTIGEN NEGATIVE (NEGATIVE); HEPATITIS C VIRUS ABY INDEX < 0.0 INDEX (<0.8)
--- NOTE | 2020-12-31 12:17 | IPNPDOC ---
Text Note Date of Service The patient was seen on 12/31/20. NOTE Subjective: Pt is a 65YO M who was admitted for COVID pneumonia and also found to be in DKA. Insulin drip was administered and the patient was placed on Remdisivir and Dexamethasone 6 mg daily. For DVT prophylaxis, the pt was given Lovenox 40 mg BID. Due to suspicion of left hallux osteomyelitis, the pt was started on Zosyn and Vancomycin. Foot xray that resulted shows significant soft tissue swelling and small focal ulceration of the left hallux. The pt's home medications for HTN were held due to possible sepsis. During interview today, the pt appears lethargic and unmotivated to move. The nursing staff reports that the pt had no overnight events and is oxygenating well on room air. They also report that the pt has a CPAP machine at home. Objective: General: Lethargic, appropriate responses to questions when prompted HEENT: NC, AT. Mucous membranes dry. CV: RRR, Normal S1 and S2. No murmurs, gallops, or rubs. Resp: CTAB with full breath sounds. No wheezes, crackles, or rhonchi. No dullness to percussion. Abdomen: Bowel sounds present. Soft, NT, ND. Extremities: +1 pitting edema of the lower extremities Imaging: Foot x-rayleft helix ulcer12/31/2020: Soft tissue swelling and ulceration involving the first toe, evidence Assessment/Plan: #Covid pneumonia: Continue Remdisivir Decreased dexamethasone from 6 mg to 4 mg Increased Lovenox 40 mg 2 twice a day Ferritin, d-dimer, CRP elevated. Continue Zosyn and vancomycin. -Start incentive spirometry Oxygen ordered. #DKA. Anion gap is closing. ABG shows improving acidemia. Started subcutaneous insulin with basal Levemir administered at 10 units. Insulin drip has been bridged to sliding scale insulin Glucose is less than 250. Therefore, D5 half normal saline has been stopped. Lactic acid is WNL. #Left helix ulcer. Continue Zosyn and vancomycin. Ordered. MRSA PCR screening. Blood cultures pending #DENEEN. Home CPAP ordered to be allowed for use by the patient #NIDDMT2 Holding home medications: Januvia, Trulicity, and metformin at this time. patient is on sliding scale insulin now, with one dose of Levemir 10 units given. #Hypertension Start home medication, amlodipine 10 mg daily. Hold irbesartan at this time #Hypokalemia. Oral 40 mEq potassium given 1 #Hypophosphatemia Given 1 round of K-Phos 44 mEq of potassium in 500 mL D5W due to peripheral access #Dyslipidemia. Continue atorvastatin Disposition: home after at least 2 midnights stay VS,Fishbone, I+O VS, Fishbone, I+O Laboratory Tests 12/30/20 17:53 12/31/20 00:01 12/31/20 03:55 12/31/20 06:20 12/31/20 08:45 Vital Signs Date Time Temp Pulse Resp B/P (MAP) Pulse Ox O2 Delivery O2 Flow Rate FiO2 12/31/20 11:00 92 140/65 (90) 94 Room Air 12/31/20 10:00 24 12/31/20 07:30 98.4 2.0 I&O- Last 24 Hours up to 6 AM 12/31/20 06:00 Intake Total 4071 ml Output Total 725 ml Balance 3346 ml GME ATTESTATION GME ATTESTATION My faculty preceptor for this patient encounter was physically present during the encounter and was fully available. All aspects of the patient interview, examination, medical decision making process, and medical care plan development were reviewed and approved by the faculty preceptor. The faculty preceptor is aware and concurs with the plan as stated in the body of this note and will attest to such by his/her cosignature. ATTENDING NOTE I, Buzz Palacios MD, have independently examined this patient and performed my own physical exam, as well as reviewed the documentation and edited where necessary. I have discussed in detail with the resident / student the findings and plan of treatment as documented by the resident / student and edited their n ote. I agree with their findings and treatment plan and have edited their documentation. Praveen Yanez DO Dec 31, 2020 12:17 BUZZ PALACIOS MD Dec 31, 2020 14:07
[2020-12-31 13:19] LABS: CALCIUM LEVEL 8.3 MG/DL (8.8-10.2); CREATININE FOR GFR 1.31 MG/DL (0.70-1.30); GLOMERULAR FILTRATION RATE 58.1 (>49); MAGNESIUM LEVEL 1.9 MG/DL (1.8-2.4); PHOSPHORUS LEVEL 0.7 MG/DL (2.5-4.9); POTASSIUM SERUM 3.2 MEQ/L (3.5-5.1)
[2020-12-31] MEDS ORDERED: POTASSIUM PHOSPHATE INJ 30 MMOL in D5W 500 ML IV ONE (14:00)
[2020-12-31] MEDS: HumaLOG INSULIN (NovoLOG) PER UNIT SC SCH ×2 (17:19→21:28)
[2020-12-31 18:12] LABS: PHOSPHORUS LEVEL 2.1 MG/DL (2.5-4.9)
[2020-12-31 18:45] LABS: CALCIUM LEVEL 7.6 MG/DL (8.8-10.2); CREATININE FOR GFR 1.31 MG/DL (0.70-1.30); GLOMERULAR FILTRATION RATE 58.1 (>49); POTASSIUM SERUM 4.1 MEQ/L (3.5-5.1)
[2020-12-31] MEDS: ENOXAPARIN 40MG/0.4ML SYRINGE (J1650 PER 10MG) SC SCH (21:27)
[2020-12-31] MEDS: LEVEMIR (INSULIN DETEMIR) 1 UNITS/0.01ML SC SCH (21:28)
[2021-01-01 00:02] VITALS: O2SAT 96
[2021-01-01] MEDS: PIPERACILLIN/TAZOBACTAM SOD 4.5 GM in D5W MINI-BAG PLUS 50 ML IV SCH ×2 (02:06→08:41)
[2021-01-01 04:00] VITALS: O2SAT 97
[2021-01-01 04:07] VITALS: BP 165/82
[2021-01-01] MEDS: REMDESIVIR 100 MG in NS 250 ML IV SCH (04:08)
[2021-01-01] MEDS: SODIUM CHLORIDE 0.9% INJ 10 ML SYR IV SCH (06:36)
[2021-01-01] MEDS: VANCOMYCIN HCL 1,000 MG, VIAL MATE ADAPTER 1 EACH in NS 250 ML IV SCH (06:36)
[2021-01-01 07:46] LABS: HEMATOCRIT 45.2 % (42.0-52.0); HEMOGLOBIN 16.2 g/dl (13.5-17.5); MEAN CORPUSCULAR HEMOGLOBIN 30.9 pg (27.0-33.0); MEAN CORPUSCULAR HGB CONC 35.8 g/dl (32.0-36.5); MEAN CORPUSCULAR VOLUME 86.1 fl (80.0-96.0); PLATELET COUNT, AUTOMATED 116 10^3/uL (150-450); RED BLOOD COUNT 5.25 10^6/uL (4.30-6.10); WHITE BLOOD COUNT 3.5 10^3/uL (4.0-10.0)
[2021-01-01 08:26] LABS: ALBUMIN 2.3 GM/DL (3.2-5.2); ALT/SGPT 17 U/L (12-78); BILIRUBIN,TOTAL 0.7 MG/DL (0.2-1.0); BLOOD UREA NITROGEN 21 MG/DL (7-18); CALCIUM LEVEL 7.3 MG/DL (8.8-10.2); CARBON DIOXIDE LEVEL 15 MEQ/L (21-32); CHLORIDE LEVEL 110 MEQ/L (98-107); CREATININE FOR GFR 1.18 MG/DL (0.70-1.30); GLOMERULAR FILTRATION RATE > 60.0 (>49); GLUCOSE, FASTING 303 MG/DL (70-100); POTASSIUM SERUM 3.5 MEQ/L (3.5-5.1); SODIUM LEVEL 138 MEQ/L (136-145); TOTAL PROTEIN 5.6 GM/DL (6.4-8.2)
[2021-01-01 08:26] LABS: ALBUMIN 2.3 GM/DL (3.2-5.2); BILIRUBIN,DIRECT 0.3 MG/DL (0.0-0.2); BILIRUBIN,TOTAL 0.7 MG/DL (0.2-1.0); TOTAL PROTEIN 5.5 GM/DL (6.4-8.2)
[2021-01-01] MEDS: GABAPENTIN 400MG CAP PO SCH ×3 (08:41→20:09)
[2021-01-01] MEDS: ENOXAPARIN 40MG/0.4ML SYRINGE (J1650 PER 10MG) SC SCH ×2 (08:41→20:11)
[2021-01-01] MEDS: FUROSEMIDE 40 MG TAB PO SCH (08:42)
[2021-01-01] MEDS: DULoxetine 30 MG CAP (CYMBALTA) PO SCH ×2 (08:42→20:09)
[2021-01-01] MEDS: ATORVASTATIN 10 MG TAB PO SCH (08:42)
[2021-01-01] MEDS: LEVEMIR (INSULIN DETEMIR) 1 UNITS/0.01ML SC SCH ×2 (08:44→20:10)
[2021-01-01] MEDS: HumaLOG INSULIN (NovoLOG) PER UNIT SC SCH ×4 (08:45→20:10)
[2021-01-01] MEDS ORDERED: dexameTHASONE 4 MG/ML 1ML VIAL (J1100 PER 1MG) IV SCH (09:00)
[2021-01-01 09:22] LABS: ATYPICAL LYMPH 4 % (0-5); LYMPHOCYTES 14 % (16-44); METAMYELOCYTES 4 % (0-0); MONOCYTES 7 % (0-5); NEUTROPHILS 69 % (28-66); PLATELET ESTIMATE DECREASED (NORMAL)
[2021-01-01 09:23] LABS: ANISOCYTOSIS 1+
[2021-01-01] MEDS ORDERED: LEVEMIR (INSULIN DETEMIR) 1 UNITS/0.01ML SC ONE (10:35)
--- NOTE | 2021-01-01 11:47 | IPNPDOC ---
Text Note Date of Service The patient was seen on 01/01/21. NOTE Subjective: Pt is a 65YO M who was admitted for COVID pneumonia and also found to be in DKA. Insulin drip was administered and the patient was placed on Remdisivir and Dexamethasone 6 mg daily. For DVT prophylaxis, the pt was given Lovenox 40 mg BID. Due to suspicion of left hallux osteomyelitis, the pt was started on Zosyn and Vancomycin. Foot xray that resulted shows significant soft tissue swelling and small focal ulceration of the left hallux. The pt's home medications for HTN were held due to possible sepsis. During interview today, patient is alert, although exhibits generalized weakness. He was lethargic yesterday, and his energy level seems to have only slightly improved today. He is openly conversing with me about the possibility of going home, although he doesn't feel well today. He states that he feels generally sick. The nursing staff reports that the pt had no overnight events and is oxygenating well on room air. They also report that the pt has a CPAP machine at home. Objective: General: Lethargic, appropriate responses to questions when prompted HEENT: NC, AT. Mucous membranes dry. CV: RRR, Normal S1 and S2. No murmurs, gallops, or rubs. Resp: CTAB with full breath sounds. No wheezes, crackles, or rhonchi. No dullness to percussion. Abdomen: Bowel sounds present. Soft, NT, ND. Extremities: +1 pitting edema of the lower extremities Imaging: Foot x-rayleft hallux ulcer12/31/2020: Soft tissue swelling and ulceration involving the first toe, evidence Assessment/Plan: #Covid pneumonia: Continue Remdisivir Decreased dexamethasone from 4 mg to 2 mg Increased Lovenox 40 mg 2 twice a day yesterday, continue dose Ferritin, d-dimer, CRP elevated; markers of ongoing inflammation in the setting of COVID pneumonia, continue COVID treatment at this time. -Start incentive spirometry to prevent atelectasis and to promote lung health. PT/OT evaluation ordered due to generalized weakness secondary to Covid pneumonia Oxygen ordered. #NIDDMT2 s/p DKA-resolved -repeat ABG shows improved pH at this time. -Glycemic control poor on 7 Units detemir BID. -4Unit Levemir also given and 7 U changed to 10U BID. #Left hallux ulcer. Discontinued Zosyn and vancomycin. MRSA screening was negative. Blood cultures preliminary show no growth. #DENEEN. Home CPAP ordered to be allowed for use by the patient #NIDDMT2 Holding home medications: Januvia, Trulicity, and metformin at this time. patient is on sliding scale insulin now, with Detemir 10U BID. #Hypertension Start home medication, amlodipine 10 mg daily. Hold irbesartan at this time #Hypokalemia. resolved, continue to monitor BMP #Hypophosphatemia resolved, continue to monitor phosphorus #Dyslipidemia. Continue atorvastatin Disposition: home after at least 2 midnights stay VS,Fishbone, I+O VS, Fishbone, I+O Laboratory Tests 12/31/20 12:19 12/31/20 17:28 01/01/21 07:25 Vital Signs Date Time Temp Pulse Resp B/P (MAP) Pulse Ox O2 Delivery O2 Flow Rate FiO2 01/01/21 08:42 78 160/84 01/01/21 04:07 96.8 21 95 Room Air 12/31/20 07:30 2.0 I&O- Last 24 Hours up to 6 AM 01/01/21 06:00 Intake Total 4443 ml Output Total 3725 ml Balance 718 ml GME ATTESTATION GME ATTESTATION My faculty preceptor for this patient encounter was physically present during the encounter and was fully available. All aspects of the patient interview, examination, medical decision making process, and medical care plan development were reviewed and approved by the faculty preceptor. The faculty preceptor is aware and concurs with the plan as stated in the body of this note and will attest to such by his/her cosignature. ATTENDING NOTE I, Buzz Palacios MD, have independently examined this patient and performed my own physical exam, as well as reviewed the documentation and edited where necessary. I have discussed in detail with the resident / student the findings and plan of treatment as documented by the resident / student and edited their note. I agree with their findings and treatment plan and have edited their documentation. Praveen Yanez DO Jan 01, 2021 11:47 BUZZ PALACIOS MD Jan 04, 2021 15:12
[2021-01-01 15:00] VITALS: BP 162/86
[2021-01-01 20:00] VITALS: O2SAT 96
[2021-01-01 20:25] VITALS: BP 148/79
[2021-01-02] VITALS (9 sets, daily range): BP systolic 166–174; BP diastolic 88–90; O2SAT 93–95
[2021-01-02] MEDS: REMDESIVIR 100 MG in NS 250 ML IV SCH (04:42)
[2021-01-02] MEDS: SODIUM CHLORIDE 0.9% INJ 10 ML SYR IV SCH (06:00)
[2021-01-02 07:13] LABS: BLOOD UREA NITROGEN 22 MG/DL (7-18); CALCIUM LEVEL 8.2 MG/DL (8.8-10.2); CARBON DIOXIDE LEVEL 22 MEQ/L (21-32); CHLORIDE LEVEL 107 MEQ/L (98-107); GLOMERULAR FILTRATION RATE > 60.0 (>49); GLUCOSE, FASTING 275 MG/DL (70-100); PHOSPHORUS LEVEL 1.4 MG/DL (2.5-4.9); POTASSIUM SERUM 3.2 MEQ/L (3.5-5.1); SODIUM LEVEL 139 MEQ/L (136-145)
[2021-01-02] MEDS: LEVEMIR (INSULIN DETEMIR) 1 UNITS/0.01ML SC SCH ×2 (08:22→20:29)
[2021-01-02] MEDS: ENOXAPARIN 40MG/0.4ML SYRINGE (J1650 PER 10MG) SC SCH ×2 (08:22→20:28)
[2021-01-02] MEDS: dexameTHASONE 4 MG/ML 1ML VIAL (J1100 PER 1MG) IV SCH (08:23)
[2021-01-02] MEDS: HumaLOG INSULIN (NovoLOG) PER UNIT SC SCH ×4 (08:23→20:29)
[2021-01-02] MEDS: DULoxetine 30 MG CAP (CYMBALTA) PO SCH ×2 (08:24→20:29)
[2021-01-02] MEDS: FUROSEMIDE 40 MG TAB PO SCH (08:24)
[2021-01-02] MEDS: GABAPENTIN 400MG CAP PO SCH ×3 (08:25→20:30)
[2021-01-02] MEDS: ATORVASTATIN 10 MG TAB PO SCH (08:25)
[2021-01-02] MEDS ORDERED: POTASSIUM CHLORIDE 10 MEQ SR TABLET PO ONE (10:15)
[2021-01-02] MEDS ORDERED: LOVE1INJ SC (10:33)
--- NOTE | 2021-01-02 11:26 | DS.PDOC ---
Discharge Summary General Date of Admission Dec 30, 2020 at 19:35 Date of Discharge Chief complaints: Dyspnea Final diagnosis Diabetic ketoacidosis Metabolic acidosis Covid 19. Pneumonia Hypoxic respiratory failure due to covid 19. Pneumonia History of present illness and Hospital course This 65 yr old M presented w c/o 7 day in duration dyspnea associated with a dry cough, subjective fevers and chills, and reduced appetite. He denied having n/v/d or rash. He was diagnosed with COVD 19 on Dec 26. In the ER his O2 sats were only 93% despite 2L of oxygen. Per d/w his RN in the ER the patient had an ulcer on the plantar aspect of his left large toe, suspicion of left hallux osteomyelitis, the pt was started on Zosyn and Vancomycin. Foot xray that resulted shows significant soft tissue swelling and small focal ulceration of the left hallux without any periosteal elevation or any signs of osteomyelitis. For his covid pneumonia . He was given 4 days of Imdur severe along with dexamethasone 40 mg daily. His oxygen requirement improved and he was saturating well on room air. He was continued on Lovenox for DVT prophylaxis initially and currently has been working with physical therapy. Physical therapy also saw the patient and recommended home with home health. On admission. He was also found to have anion gap metabolic acidosis with hyperglycemia and was found to have diabetic ketoacidosis. DKA protocol was followed and eventually the patient was switched to subcutaneous insulin, Levemir 10 twice a day on which his sugars were controlled. He takes Trulicity Januvia and metformin at home. Apparently there is some signs of noncompliance and the importance of compliance with discussed in detail. We tried to call her PCP couple of times to address the possibility of starting him on insulin as his A1c is greater than 12, but the patient states that he will follow with his PCP for any changes in his diabetic regimen. In the meantime, we have told him to maintain a log of his blood sugars and report that log to the PCP for adjustment of his medications. His toe ulcer looks noninfected and has been advised to keep it dry and follow-up with podiatry as an outpatient along with PCP. He is on room air. Blood sugars have been controlled and physical therapy has recommended home with home health. He is medically optimized for discharge now. Physical exam General: Alert, oriented to time, place and person. Appropriate responses to questions when prompted HEENT: NC, AT. Mucous membranes moist. CV: RRR, Normal S1 and S2. No murmurs, gallops, or rubs. Resp: CTAB with full breath sounds. No wheezes, crackles, or rhonchi. No dullness to percussion. Abdomen: Bowel sounds present. Soft, NT, ND. Extremities: +1 pitting edema of the lower extremities Imaging: Foot x-rayleft hallux ulcer12/31/2020: Soft tissue swelling and ulceration involving the first toe, evidence Medications. As per discharge reconciliation medication list Activity as tolerated Diet. 2 g sodium diet Follow-up appointments. PCP in 1 week. Condition on discharge. Patient is medically optimized for discharge Discharge disposition: Home with home health Total time spent on this discharge including coordination of care, review of chart documentation and actual patient contact is around 35 minutes Primary Care Physician: A Discharge Summary PROCEDURES PERFORMED DURING STAY: [None]. ADMITTING DIAGNOSES: 1. . DISCHARGE DIAGNOSES: 1. . COMPLICATIONS/CHIEF COMPLAINT: +Covid,Sirs. HISTORY OF PRESENT ILLNESS: . HOSPITAL COURSE: . DISCHARGE MEDICATIONS: Please see below. ALLERGIES: Please see below. PHYSICAL EXAMINATION ON DISCHARGE: VITAL SIGNS: Please see below. GENERAL: HEENT: NECK: CARDIOVASCULAR EXAMINATION: RESPIRATORY EXAMINATION: ABDOMINAL EXAMINATION: EXTREMITIES: SKIN: NEUROLOGICAL EXAMINATION: PSYCHIATRIC EXAMINATION: LABORATORY DATA: Please see below. IMAGING: PROGNOSIS: ACTIVITY: [As tolerated]. DIET: DISCHARGE PLAN: DISPOSITION: . DISCHARGE INSTRUCTIONS: 1. . ITEMS TO FOLLOWUP ON ON OUTPATIENT: 1. . DISCHARGE CONDITION: [Stable]. TIME SPENT ON DISCHARGE: Greater than minutes. Vital Signs/I&Os Vital Signs Date Time Temp Pulse Resp B/P (MAP) Pulse Ox O2 Delivery O2 Flow Rate FiO2 01/02/21 08:35 99.1 78 20 166/88 (114) 96 Room Air 12/31/20 07:30 2.0 I&O- Last 24 Hours up to 6 AM 01/02/21 06:00 Intake Total 2280 ml Output Total 4525 ml Balance -2245 ml Laboratory Data Labs 24H Laboratory Tests 2 01/01/21 11:34: Bedside Glucose (Misc Panel) 330H 01/01/21 16:25: Bedside Glucose (Misc Panel) 403H 01/01/21 19:56: Bedside Glucose (Misc Panel) 378H 01/02/21 06:05: Anion Gap 10, Glomerular Filtration Rate > 60.0, Calcium Level 8.2L, Phosphorus Level 1.4#L CBC/BMP Laboratory Tests 01/02/21 06:05 FSBS Laboratory Tests Test 01/01/21 11:34 01/01/21 16:25 01/01/21 19:56 Range/Units Bedside Glucose (Misc Panel) 330 403 378 80-115 MG/DL Microbiology Microbiology 12/30/20 Blood Culture - Preliminary, Resulted No Growth after 48 hours. All Specime... 12/30/20 Blood Culture - Preliminary, Resulted No Growth after 48 hours. All Specime... Discharge Medications Scheduled Amlodipine Besylate (Amlodipine Besylate) 10 Mg Tablet, 10 MG PO DAILY, (Reported) Atorvastatin Calcium (Atorvastatin Calcium) 10 Mg Tablet, 10 MG PO DAILY, (Reported) Duloxetine Hcl (Duloxetine HCl) 30 Mg Capsule.dr, 30 MG PO QPM, (Reported) Duloxetine Hcl (Duloxetine HCl) 30 Mg Capsule.dr, 60 MG PO QAM, (Reported) Empagliflozin (Jardiance) 25 Mg Tablet, 25 MG PO DAILY, (Reported) Furosemide (Furosemide) 40 Mg Tablet, 40 MG PO DAILY, (Reported) Gabapentin (Gabapentin) 800 Mg Tablet, 800 TAB PO TID, (Reported) Irbesartan (Irbesartan) 150 Mg Tablet, 150 MG PO DAILY, (Reported) Metformin HCl (Metformin HCl) 1,000 Mg Tablet, 1,000 MG PO BID, (Reported) Scheduled PRN Albuterol Sulfate (Albuterol Sulfate Hfa) 8.5 Gm Hfa.aer.ad, 2 PUFF INH Q4-6HP PRN for SOB/WHEEZING, (Reported) Ondansetron HCl (Ondansetron HCl) 4 Mg Tablet, 4 MG PO Q6-8HP PRN for NAUSEA OR VOMITING, (Reported) Miscellaneous Medications Dulaglutide (Trulicity) 3 Mg/0.5 Ml Pen.injctr, 1 DOSE SUBQ, (Reported) UNABLE TO VERIFY DOSE [Med Rec Comment] , (Reported) USED EXTERNAL MED HISTORY, PATIENT ANSWERS "I DON'T KNOW " TO EVERYTHING ASKED. CALLED SHE DOESNT KNOW EITHER. Allergies Coded Allergies: No Known Allergies (Verified Allergy, Unknown, 12/26/20) JOE PALACIOS MD Jan 02, 2021 11:26
[2021-01-02] MEDS ORDERED: guaiFENesin DM *SUGAR FREE* 5ML**DIABETIC TUSSIN DM PO PRN (15:35)
[2021-01-02] MEDS ORDERED: CEPACOL LOZENGE PO PRN (15:35)
[2021-01-02] MEDS: K-PHOS NEUTRAL 250MG TABLET (SOD.PHOSPHATE/POT.PHOSPHATE) PO SCH (20:29)
[2021-01-02] MEDS: BENZONATATE 100 MG CAP PO SCH (20:30)
[2021-01-03] VITALS: O2SAT 93
[2021-01-03 04:00] VITALS: BP 136/70; O2SAT 92
[2021-01-03] MEDS: REMDESIVIR 100 MG in NS 250 ML IV SCH (04:17)
[2021-01-03] MEDS: SODIUM CHLORIDE 0.9% INJ 10 ML SYR IV SCH (05:50)
[2021-01-03 06:01] LABS: BLOOD UREA NITROGEN 20 MG/DL (7-18); CALCIUM LEVEL 7.4 MG/DL (8.8-10.2); CARBON DIOXIDE LEVEL 25 MEQ/L (21-32); CHLORIDE LEVEL 105 MEQ/L (98-107); CREATININE FOR GFR 0.99 MG/DL (0.70-1.30); GLOMERULAR FILTRATION RATE > 60.0 (>49); GLUCOSE, FASTING 259 MG/DL (70-100); PHOSPHORUS LEVEL 1.6 MG/DL (2.5-4.9); POTASSIUM SERUM 3.2 MEQ/L (3.5-5.1); SODIUM LEVEL 138 MEQ/L (136-145)
[2021-01-03 07:38] LABS: HEMATOCRIT 46.2 % (42.0-52.0); HEMOGLOBIN 16.3 g/dl (13.5-17.5); MEAN CORPUSCULAR HEMOGLOBIN 30.5 pg (27.0-33.0); MEAN CORPUSCULAR HGB CONC 35.3 g/dl (32.0-36.5); MEAN CORPUSCULAR VOLUME 86.5 fl (80.0-96.0); PLATELET COUNT, AUTOMATED 136 10^3/uL (150-450); RED BLOOD COUNT 5.34 10^6/uL (4.30-6.10); WHITE BLOOD COUNT 4.8 10^3/uL (4.0-10.0)
[2021-01-03 08:00] VITALS: BP 132/60; O2SAT 93
[2021-01-03 08:01] LABS: ATYPICAL LYMPH 3 % (0-5); LYMPHOCYTES 12 % (16-44); MONOCYTES 3 % (0-5); NEUTROPHILS 82 % (28-66); PLATELET ESTIMATE NORMAL (NORMAL)
[2021-01-03] MEDS: LEVEMIR (INSULIN DETEMIR) 1 UNITS/0.01ML SC SCH ×2 (08:24→21:07)
[2021-01-03] MEDS: HumaLOG INSULIN (NovoLOG) PER UNIT SC SCH ×4 (08:24→21:07)
[2021-01-03] MEDS: dexameTHASONE 4 MG/ML 1ML VIAL (J1100 PER 1MG) IV SCH (08:25)
[2021-01-03] MEDS: ATORVASTATIN 10 MG TAB PO SCH (08:25)
[2021-01-03] MEDS: K-PHOS NEUTRAL 250MG TABLET (SOD.PHOSPHATE/POT.PHOSPHATE) PO SCH ×4 (08:25→21:05)
[2021-01-03] MEDS: ENOXAPARIN 40MG/0.4ML SYRINGE (J1650 PER 10MG) SC SCH ×2 (08:25→21:06)
[2021-01-03] MEDS: GABAPENTIN 400MG CAP PO SCH ×3 (08:25→21:06)
[2021-01-03] MEDS: BENZONATATE 100 MG CAP PO SCH ×2 (08:26→21:06)
[2021-01-03] MEDS: DULoxetine 30 MG CAP (CYMBALTA) PO SCH ×2 (08:26→21:06)
[2021-01-03] MEDS: FUROSEMIDE 40 MG TAB PO SCH (08:26)
[2021-01-03] MEDS: IRBESARTAN 150MG TAB PO SCH (08:29)
[2021-01-03] MEDS ORDERED: POTASSIUM CHLORIDE 10% LIQ 20 MEQ/15 ML UDC PO ONE (10:20)
[2021-01-03] MEDS ORDERED: PHOS1TAB3 PO (11:09)
[2021-01-03 12:00] VITALS: O2SAT 94
[2021-01-03 16:00] VITALS: BP 159/87; O2SAT 96
--- NOTE | 2021-01-03 17:06 | IPNPDOC ---
Text Note Date of Service The patient was seen on 01/03/21. NOTE Subjective: Pt is a 65YO M who was admitted for COVID pneumonia and also found to be in DKA. Insulin drip was administered and the patient was placed on Remdisivir and Dexamethasone 6 mg daily. For DVT prophylaxis, the pt was given Lovenox 40 mg BID. Due to suspicion of left hallux osteomyelitis, the pt was started on Zosyn and Vancomycin. Foot xray that resulted shows significant soft tissue swelling and small focal ulceration of the left hallux. The pt's home medications for HTN were held due to possible sepsis. During interview today, patient is alert, exhibits no weakness at this time. He is openly conversing with me about the possibility of going home. Patient's anticipated discharge with yesterday. However, he was kept due to PT. This seems to be the case again today. The nursing staff reports that the pt had no overnight events and is oxygenating well on room air. They also report that the pt has a CPAP machine at home. Nursing staff does report one loose stool today. Nursing staff also reports that the patient had 4 L of diet Pepsi yesterday. The patient has been hydrating himself on diet Pepsi. He does not report any headaches, shortness of breath, chest pain or abdominal pain at this time. Patient admitted to the attending that he does not take his oral diabetic regimen. He states that he is unmotivated to go home at this time even though he has no generalized weakness. Objective: General: In no acute distress, appropriate responses to questions when prompted HEENT: NC, AT. Mucous membranes dry. CV: RRR, Normal S1 and S2. No murmurs, gallops, or rubs. Resp: CTAB with full breath sounds. No wheezes, crackles, or rhonchi. No dullness to percussion. Abdomen: Bowel sounds present. Soft, NT, ND. Extremities: +1 pitting edema of the lower extremities Imaging: Foot x-rayleft hallux ulcer12/31/2020: Soft tissue swelling and ulceration involving the first toe, evidence Assessment/Plan: #Covid pneumonia: Continue Remdisivir Decreased dexamethasone from 4 mg to 2 mg Increased Lovenox 40 mg 2 twice a day yesterday, continue dose Ferritin, d-dimer, CRP elevated; markers of ongoing inflammation in the setting of COVID pneumonia, continue COVID treatment at this time. -Continue incentive spirometry to prevent atelectasis and to promote lung health. PT/OT evaluation ordered due to generalized weakness secondary to Covid pneumonia Oxygen ordered. #NIDDMT2 s/p DKA-resolved -repeat ABG shows improved pH at this time. -Glycemic control poor on 10 Units detemir BID. #Left hallux ulcer. Discontinued Zosyn and vancomycin. MRSA screening was negative. Blood cultures preliminary show no growth. #DENEEN. Home CPAP ordered to be allowed for use by the patient #NIDDMT2 Holding home medications: Januvia, Trulicity, and metformin at this time. patient is on sliding scale insulin now, with Detemir 10U BID. #Hypertension Start home medication, amlodipine 10 mg daily. - Continue home medication: Irbesartan. #Hypokalemia. resolved, continue to monitor BMP #Hypophosphatemia resolved, continue to monitor phosphorus #Dyslipidemia. Continue atorvastatin Disposition: home with home PT. VS,Fishbone, I+O VS, Fishbone, I+O Laboratory Tests 01/03/21 05:18 Vital Signs Date Time Temp Pulse Resp B/P (MAP) Pulse Ox O2 Delivery O2 Flow Rate FiO2 01/03/21 12:00 94 Room Air 01/03/21 08:28 91 132/60 01/03/21 08:00 20 01/03/21 04:00 98.6 12/31/20 07:30 2.0 I&O- Last 24 Hours up to 6 AM 01/03/21 05:59 Intake Total 5270 ml Output Total 4250 ml Balance 1020 ml GME ATTESTATION GME ATTESTATION My faculty preceptor for this patient encounter was physically present during the encounter and was fully available. All aspects of the patient interview, examination, medical decision making process, and medical care plan development were reviewed and approved by the faculty preceptor. The faculty preceptor is aware and concurs with the plan as stated in the body of this note and will attest to such by his/her cosignature. ATTENDING NOTE I, Buzz Palacios MD, have independently examined this patient and performed my own physical exam, as well as reviewed the documentation and edited where necessary. I have discussed in detail with the resident / student the findings and plan of treatment as documented by the resident / student and edited their note. I agree with their findings and treatment plan and have edited their documentation. Praveen Yanez DO Jan 03, 2021 17:06 BUZZ PALACIOS MD Jan 04, 2021 15:13
[2021-01-03 20:00] VITALS: BP 143/63; O2SAT 93
[2021-01-04] VITALS: O2SAT 91
[2021-01-04 04:00] VITALS: O2SAT 90
[2021-01-04] MEDS: REMDESIVIR 100 MG in NS 250 ML IV SCH (05:36)
[2021-01-04 05:37] VITALS: BP 147/87
[2021-01-04] MEDS: SODIUM CHLORIDE 0.9% INJ 10 ML SYR IV SCH (07:00)
[2021-01-04 08:00] VITALS: O2SAT 92
[2021-01-04] MEDS: ENOXAPARIN 40MG/0.4ML SYRINGE (J1650 PER 10MG) SC SCH (08:22)
[2021-01-04] MEDS: DULoxetine 30 MG CAP (CYMBALTA) PO SCH (08:23)
[2021-01-04] MEDS: HumaLOG INSULIN (NovoLOG) PER UNIT SC SCH ×2 (08:23→12:06)
[2021-01-04] MEDS: K-PHOS NEUTRAL 250MG TABLET (SOD.PHOSPHATE/POT.PHOSPHATE) PO SCH (08:24)
[2021-01-04] MEDS: LEVEMIR (INSULIN DETEMIR) 1 UNITS/0.01ML SC SCH (08:24)
[2021-01-04] MEDS: BENZONATATE 100 MG CAP PO SCH (08:24)
[2021-01-04] MEDS: FUROSEMIDE 40 MG TAB PO SCH (08:24)
[2021-01-04] MEDS: ATORVASTATIN 10 MG TAB PO SCH (08:24)
[2021-01-04] MEDS: dexameTHASONE 4 MG/ML 1ML VIAL (J1100 PER 1MG) IV SCH (08:24)
[2021-01-04 08:25] VITALS: BP 147/87
[2021-01-04] MEDS: IRBESARTAN 150MG TAB PO SCH (08:25)
[2021-01-04] MEDS: GABAPENTIN 400MG CAP PO SCH (08:25)
[2021-01-04 08:42] LABS: BLOOD UREA NITROGEN 16 MG/DL (7-18); CALCIUM LEVEL 7.7 MG/DL (8.8-10.2); CARBON DIOXIDE LEVEL 26 MEQ/L (21-32); CHLORIDE LEVEL 102 MEQ/L (98-107); CREATININE FOR GFR 0.94 MG/DL (0.70-1.30); GLOMERULAR FILTRATION RATE > 60.0 (>49); GLUCOSE, FASTING 253 MG/DL (70-100); POTASSIUM SERUM 3.3 MEQ/L (3.5-5.1); SODIUM LEVEL 136 MEQ/L (136-145)
[2021-01-04 12:00] VITALS: O2SAT 93
--- NOTE | 2021-01-04 15:14 | DS.PDOC ---
Discharge Summary General Date of Admission Dec 30, 2020 at 19:35 Date of Discharge 01/04/21 Discharge Summary Chief complaints: Dyspnea Final diagnosis Diabetic ketoacidosis Metabolic acidosis Covid 19. Pneumonia Hypoxic respiratory failure due to covid 19. Pneumonia History of present illness and Hospital course This 65 yr old M presented w c/o 7 day in duration dyspnea associated with a dry cough, subjective fevers and chills, and reduced appetite. He denied having n/v/d or rash. He was diagnosed with COVD 19 on Dec 26. In the ER his O2 sats were only 93% despite 2L of oxygen. Per d/w his RN in the ER the patient had an ulcer on the plantar aspect of his left large toe, suspicion of left hallux osteomyelitis, the pt was started on Zosyn and Vancomycin. Foot xray that resulted shows significant soft tissue swelling and small focal ulceration of the left hallux without any periosteal elevation or any signs of osteomyelitis. For his covid pneumonia . He was given 4 days of Imdur severe along with dexamethasone 40 mg daily. His oxygen requirement improved and he was saturating well on room air. He was continued on Lovenox for DVT prophylaxis initially and currently has been working with physical therapy. Physical therapy also saw the patient and recommended home with home health. On admission. He was also found to have anion gap metabolic acidosis with hyperglycemia and was found to have diabetic ketoacidosis. DKA protocol was followed and eventually the patient was switched to subcutaneous insulin, Levemir 10 twice a day on which his sugars were controlled. He takes Trulicity Januvia and metformin at home. Apparently there is some signs of noncompliance and the importance of compliance with discussed in detail. We tried to call her PCP couple of times to address the possibility of starting him on insulin as his A1c is greater than 12, but the patient states that he will follow with his PCP for any changes in his diabetic regimen. In the meantime, we have told him to maintain a log of his blood sugars and report that log to the PCP for adjustment of his medications. His toe ulcer looks noninfected and has been advised to keep it dry and follow-up with podiatry as an outpatient along with PCP. He is on room air. Blood sugars have been controlled and physical therapy has recommended home with home health today. He was medically stable and was the continued to work with physical therapy for the last 2 days and that was a delay in his discharge. He is medically optimized for discharge now. Physical exam General: Alert, oriented to time, place and person. Appropriate responses to questions when prompted HEENT: NC, AT. Mucous membranes moist. CV: RRR, Normal S1 and S2. No murmurs, gallops, or rubs. Resp: CTAB with full breath sounds. No wheezes, crackles, or rhonchi. No dullness to percussion. Abdomen: Bowel sounds present. Soft, NT, ND. Extremities: +1 pitting edema of the lower extremities Imaging: Foot x-rayleft hallux ulcer12/31/2020: Soft tissue swelling and ulceration involving the first toe, evidence Medications. As per discharge reconciliation medication list Activity as tolerated Diet. 2 g sodium diet Follow-up appointments. PCP in 1 week. Condition on discharge. Patient is medically optimized for discharge Discharge disposition: Home with home health Total time spent on this discharge including coordination of care, review of chart documentation and actual patient contact is around 35 minutes Vital Signs/I&Os Vital Signs Date Time Temp Pulse Resp B/P (MAP) Pulse Ox O2 Delivery O2 Flow Rate FiO2 01/04/21 12:00 93 Room Air 01/04/21 08:25 90 147/87 01/04/21 05:37 99.3 20 1.0 I&O- Last 24 Hours up to 6 AM 01/04/21 06:00 Intake Total 2420 ml Output Total 3150 ml Balance -730 ml Laboratory Data Labs 24H Laboratory Tests 2 01/03/21 16:50: Bedside Glucose (Misc Panel) 303H 01/03/21 19:17: Bedside Glucose (Misc Panel) 339H 01/04/21 06:00: Bedside Glucose (Misc Panel) 240H 01/04/21 08:08: Anion Gap 8, Glomerular Filtration Rate > 60.0, Calcium Level 7.7L 01/04/21 11:43: Bedside Glucose (Misc Panel) 341H CBC/BMP Laboratory Tests 01/04/21 08:08 FSBS Laboratory Tests Test 01/03/21 16:50 01/03/21 19:17 01/04/21 06:00 01/04/21 11:43 Range/Units Bedside Glucose (Misc Panel) 303 339 240 341 80-115 MG/DL Microbiology Microbiology 12/30/20 Blood Culture - Preliminary, Resulted No Growth after 72 hours. All specime... 12/30/20 Blood Culture - Preliminary, Resulted No Growth after 72 hours. All specime... Discharge Medications Scheduled Amlodipine Besylate (Amlodipine Besylate) 10 Mg Tablet, 10 MG PO DAILY, (Reported) Atorvastatin Calcium (Atorvastatin Calcium) 10 Mg Tablet, 10 MG PO DAILY, (Reported) Duloxetine Hcl (Duloxetine HCl) 30 Mg Capsule.dr, 30 MG PO QPM, (Reported) Duloxetine Hcl (Duloxetine HCl) 30 Mg Capsule.dr, 60 MG PO QAM, (Reported) Empagliflozin (Jardiance) 25 Mg Tablet, 25 MG PO DAILY, (Reported) Furosemide (Furosemide) 40 Mg Tablet, 40 MG PO DAILY, (Reported) Gabapentin (Gabapentin) 800 Mg Tablet, 800 TAB PO TID, (Reported) Irbesartan (Irbesartan) 150 Mg Tablet, 150 MG PO DAILY, (Reported) Metformin HCl (Metformin HCl) 1,000 Mg Tablet, 1,000 MG PO BID, (Reported) Sod Phos Di, Baker/K Phos Baker (Phospha 250 Neutral Tablet) 250 Mg Tablet, 250 MG PO TID Scheduled PRN Albuterol Sulfate (Albuterol Sulfate Hfa) 8.5 Gm Hfa.aer.ad, 2 PUFF INH Q4-6HP PRN for SOB/WHEEZING, (Reported) Ondansetron HCl (Ondansetron HCl) 4 Mg Tablet, 4 MG PO Q6-8HP PRN for NAUSEA OR VOMITING, (Reported) Miscellaneous Medications Dulaglutide (Trulicity) 3 Mg/0.5 Ml Pen.injctr, 1 DOSE SUBQ, (Reported) UNABLE TO VERIFY DOSE Allergies Coded Allergies: No Known Allergies (Verified Allergy, Unknown, 12/26/20) JOE PALACIOS MD Jan 04, 2021 15:14
== END 2021-01-04 14:03 | disposition home health service (06) | DRG 177 ==
LOC: M ED 17:30 → M ED INP 19:35 → ENRESERV 20:19 → M 4MAIN 21:35 → M ICU 12-31 02:34 → M 4MAIN 12-31 23:21
PROVIDERS: ADMIT Internal Medicine; ATTEND Internal Medicine
PROC: XW033E5 Introduction of Remdesivir Anti-infective into Peripheral Vein, Percutaneous Approach, New Technology Group 5 (ICD-10-PCS; principal; 2020-12-30)
PROC: 3E0333Z Introduction of Anti-inflammatory into Peripheral Vein, Percutaneous Approach (ICD-10-PCS; 2020-12-30)
DX: U07.1 COVID-19 (principal); J12.82 Pneumonia due to coronavirus disease 2019; E11.10 Type 2 diabetes mellitus with ketoacidosis without coma; J96.91 Respiratory failure, unspecified with hypoxia; E87.2 Acidosis; L97.528 Non-pressure chronic ulcer of other part of left foot with other specified severity; Z68.41 Body mass index [BMI] 40.0-44.9, adult; I10 Essential (primary) hypertension; E11.40 Type 2 diabetes mellitus with diabetic neuropathy, unspecified; E87.6 Hypokalemia; E11.65 Type 2 diabetes mellitus with hyperglycemia; E78.5 Hyperlipidemia, unspecified; E83.39 Other disorders of phosphorus metabolism; M10.9 Gout, unspecified; E66.9 Obesity, unspecified; G47.33 Obstructive sleep apnea (adult) (pediatric); E11.621 Type 2 diabetes mellitus with foot ulcer; D69.6 Thrombocytopenia, unspecified; Z79.84 Long term (current) use of oral hypoglycemic drugs; Z79.899 Other long term (current) drug therapy; Z91.19 Patient's noncompliance with other medical treatment and regimen

== ENCOUNTER → 2021-02-12 | Outpatient (REF) | payer MEDICARE ==
[~2021-02-12] MED LIST changes: +ALBU8.5H INH; +LOVE1INJ SC; +MED REC COMMENT; +ONDA-83 PO; +PHOS1TAB3 PO; -VANCOMYCIN HCL 500 MG in D5W MINI-BAG PLUS 100 ML IV ONE
[2021-02-12 17:21] LABS: CREATININE, URINE 41.2 MG/DL; MALB URINE SIEMENS 33.6 MG/L; MAU/CREAT RATIO 81.5 MCG/MG (0.0-30.0)
== END ==
LOC: M LAB REF 15:52
PROVIDERS: ATTEND Nurse Practitioner Family
DX: E11.65 Type 2 diabetes mellitus with hyperglycemia (principal)

== ENCOUNTER → 2021-05-06 | Outpatient (CLI) | payer MEDICARE ==
--- NOTE | 2021-05-06 10:54 | REP ---
INDICATION: CONTUSION COMPARISON: None. TECHNIQUE: Frontal view of the chest with multiple views of the left hemithorax. Six total views. FINDINGS: Frontal view of the chest demonstrates no acute cardiopulmonary process, contusion, effusion, or pneumothorax. Multiple views of the left hemithorax demonstrates no definite or displaced rib fracture. A single oblique cannot exclude a very subtle nondisplaced fracture along the posterolateral aspect of the 8th rib. IMPRESSION: No definite acute fracture. However, subtle nondisplaced injury along the posterolateral left 8th rib cannot be excluded. <Electronically signed by Michael Silverman > 05/06/21 [id number]
== END ==
LOC: M WUC 09:45
PROVIDERS: ATTEND Physician Assistant
DX: S20.212A Contusion of left front wall of thorax, initial encounter (principal)

== ENCOUNTER → 2021-05-29 | Outpatient (CLI) | payer MEDICARE ==
--- NOTE | 2021-05-29 12:23 | REP ---
INDICATION: LT LEG PAIN, REDNESS. TECHNIQUE: Multiple ultrasonographic images of the deep venous structures of the left thigh were obtained from the level of the common femoral vein to the popliteal vein in the longitudinal and transverse scan planes along with Doppler interrogation and color flow Doppler imaging. Examination of the left proximal calf vessels was also attempted. Some comparison compression images were obtained for the right common femoral vein. FINDINGS: There is no abnormal echogenic material seen within any of the visualized deep venous structures that would suggest acute thrombosis. Coaptation is unremarkable throughout. Doppler interrogation shows an expected response to respiratory variability and augmentation. The color flow Doppler images show what appears to be a normal vascular pattern throughout. The calf veins in the proximal left calf could not be seen due to swelling in that extremity. The right common femoral vein for comparison was fully compressible. IMPRESSION: There is no ultrasonographic evidence of deep venous thrombosis involving any of the visualized deep venous structures of the left thigh as described above. Accredited by the [employer] in Vascular Peripheral Ultrasound. <Electronically signed by Jonny Ramirez > 05/29/21 [id number]
== END ==
LOC: M RAD 11:30
PROVIDERS: ATTEND Podiatrist
DX: I82.402 Acute embolism and thrombosis of unspecified deep veins of left lower extremity (principal)

== ENCOUNTER → 2021-06-24 | Outpatient (REF) | payer MEDICARE | LOC: M LAB REF 16:22 | PROVIDERS: ATTEND Podiatrist | DX: L03.032 Cellulitis of left toe (principal) ==

== ENCOUNTER → 2021-12-13 | Outpatient (CLI) | payer MEDICARE | LOC: M RAD 12:18 | PROVIDERS: ATTEND Internal Medicine | DX: R31.9 Hematuria, unspecified (principal); N20.0 Calculus of kidney; R16.1 Splenomegaly, not elsewhere classified; K57.30 Diverticulosis of large intestine without perforation or abscess without bleeding ==

== ENCOUNTER → 2022-01-08 | Outpatient (REF) | payer MEDICARE ==
[2022-01-08 17:28] LABS: APPEARANCE, URINE CLEAR (CLEAR); BACTERIA, URINE AUTO NEGATIVE (NEGATIVE); BILIRUBIN, URINE AUTO NEGATIVE (NEGATIVE); BLOOD, URINE BLOOD 2+ (NEGATIVE); COLOR, URINE YELLOW (YELLOW); GLUCOSE, URINE (UA) AUTO 3+ mg/dL (NEGATIVE); KETONE, URINE AUTO NEGATIVE (NEGATIVE); LEUKOCYTE ESTERASE, URINE AUTO NEGATIVE (NEGATIVE); NITRITE, URINE AUTO NEGATIVE (NEGATIVE); PROTEIN, URINE AUTO 1+ mg/dL (NEGATIVE); RBC, URINE AUTO 8 /HPF (0-3); SPECIFIC GRAVITY URINE AUTO 1.022 (1.002-1.035); SQUAMOUS EPITHELIAL CELL UR AU 0 /HPF (0-6); UROBILINOGEN, URINE AUTO 0.2 mg/dL (0.0-2.0); WBC, URINE AUTO 1 /HPF (0-3)
== END ==
LOC: M SMT 16:40
PROVIDERS: ATTEND Physician Assistant
DX: R31.9 Hematuria, unspecified (principal)

== ENCOUNTER → 2022-01-14 | Outpatient (REF) | payer MEDICARE ==
[2022-01-14 13:55] LABS: APPEARANCE, URINE CLEAR (CLEAR); BACTERIA, URINE AUTO NEGATIVE (NEGATIVE); BILIRUBIN, URINE AUTO NEGATIVE (NEGATIVE); BLOOD, URINE BLOOD 1+ (NEGATIVE); COLOR, URINE STRAW (YELLOW); GLUCOSE, URINE (UA) AUTO 3+ mg/dL (NEGATIVE); KETONE, URINE AUTO NEGATIVE (NEGATIVE); LEUKOCYTE ESTERASE, URINE AUTO NEGATIVE (NEGATIVE); NITRITE, URINE AUTO NEGATIVE (NEGATIVE); PROTEIN, URINE AUTO 1+ mg/dL (NEGATIVE); RBC, URINE AUTO 6 /HPF (0-3); SPECIFIC GRAVITY URINE AUTO 1.021 (1.002-1.035); SQUAMOUS EPITHELIAL CELL UR AU 0 /HPF (0-6); UROBILINOGEN, URINE AUTO 0.2 mg/dL (0.0-2.0); WBC, URINE AUTO 1 /HPF (0-3)
== END ==
LOC: M SMT 12:58
PROVIDERS: ATTEND Physician Assistant
DX: R31.9 Hematuria, unspecified (principal)

== ENCOUNTER → 2022-01-23 | Outpatient (CLI) | payer MEDICARE ==
[~2022-01-23] MED LIST changes: +ISOVUE-370 76% 100ML VIAL As Ordered ONE
== END ==
LOC: M RAD 08:47
PROVIDERS: ATTEND Physician Assistant
DX: R31.9 Hematuria, unspecified (principal)
CPT/HCPCS: 74160; Q9967

== ENCOUNTER → 2022-02-21 | Outpatient (CLI) | payer MEDICARE ==
[~2022-02-21] MED LIST changes: +ASPI1CHW3 PO; +ECOT81TA5 PO; +INSU100V3 SQ; -ISOVUE-370 76% 100ML VIAL As Ordered ONE; +OXYB5TAB10 PO; +TOUJ1.2I SC
== END ==
LOC: M LABSMTC 10:29
PROVIDERS: ATTEND Anesthesiology
DX: Z01.812 Encounter for preprocedural laboratory examination (principal); Z20.822 Contact with and (suspected) exposure to COVID-19

== ENCOUNTER → 2022-02-21 | Outpatient (REF) | payer MEDICARE ==
[2022-02-21 17:03] LABS: INR 0.91; PROTHROMBIN TIME 12.7 SECONDS (12.7-14.5)
[2022-02-21 17:10] LABS: APPEARANCE, URINE CLEAR (CLEAR); BACTERIA, URINE AUTO NEGATIVE (NEGATIVE); BILIRUBIN, URINE AUTO NEGATIVE (NEGATIVE); BLOOD, URINE BLOOD 3+ (NEGATIVE); COLOR, URINE YELLOW (YELLOW); GLUCOSE, URINE (UA) AUTO 3+ mg/dL (NEGATIVE); KETONE, URINE AUTO NEGATIVE (NEGATIVE); LEUKOCYTE ESTERASE, URINE AUTO NEGATIVE (NEGATIVE); MUCUS, URINE SMALL (NEGATIVE); NITRITE, URINE AUTO NEGATIVE (NEGATIVE); PROTEIN, URINE AUTO 2+ mg/dL (NEGATIVE); RBC, URINE AUTO 41 /HPF (0-3); SQUAMOUS EPITHELIAL CELL UR AU 0 /HPF (0-6); UROBILINOGEN, URINE AUTO 0.2 mg/dL (0.0-2.0); WBC, URINE AUTO 1 /HPF (0-3)
== END ==
LOC: M LAB REF 16:33
PROVIDERS: ATTEND Internal Medicine
DX: Z01.818 Encounter for other preprocedural examination (principal); Z79.899 Other long term (current) drug therapy

== ENCOUNTER → 2022-02-22 | Outpatient (CLI) | payer MEDICARE | LOC: M RAD 10:29 | PROVIDERS: ATTEND Nurse Practitioner Women's Health | DX: N20.0 Calculus of kidney (principal) ==

== ENCOUNTER 2022-02-26 13:03 | Day surgery (SDC) | payer MEDICARE ==
[~2022-02-26] VITALS: Ht 198.1 cm; Wt 162.8 kg
[~2022-02-26 13:03] MED LIST changes: +LIDOCAINE 1% MDV 20ML VIAL SQ PRN; +LIDOCAINE 2% 100MG/5ML SDV (FOR ANES.) As Ordered ONE; +LR 1,000 ML IV ONE; +MIDAZOLAM INJ 2MG/2ML VIAL (J2250 PER 1MG) As Ordered ONE; +ONDANSETRON 4MG/2ML VIAL As Ordered ONE; +ceFAZolin SOD 1 GM in D5W MINI-BAG PLUS 50 ML IV ONE; +ceFAZolin SOD 2 GM in IV 1 EA IV ONE; +dexameTHASONE 4 MG/ML 1ML VIAL (J1100 PER 1MG) As Ordered ONE; +fentaNYL 100 MCG/2 ML INJECTION As Ordered ONE; +propofoL 200 MG/20 ML VIAL As Ordered ONE
[2022-02-26 13:47] VITALS: BP 182/96
== END 2022-02-26 15:00 | disposition home or self-care (01) ==
LOC: M SDC 13:03
PROVIDERS: ATTEND Urology
DX: N20.0 Calculus of kidney (principal); Z53.29 Procedure and treatment not carried out because of patient's decision for other reasons
CPT/HCPCS: J2250; J3010

== ENCOUNTER → 2022-10-08 | Outpatient (REF) | payer MEDICARE ==
[~2022-10-08] MED LIST changes: -LIDOCAINE 1% MDV 20ML VIAL SQ PRN; -LIDOCAINE 2% 100MG/5ML SDV (FOR ANES.) As Ordered ONE; -LR 1,000 ML IV ONE; -MIDAZOLAM INJ 2MG/2ML VIAL (J2250 PER 1MG) As Ordered ONE; -ONDANSETRON 4MG/2ML VIAL As Ordered ONE; -ceFAZolin SOD 1 GM in D5W MINI-BAG PLUS 50 ML IV ONE; -ceFAZolin SOD 2 GM in IV 1 EA IV ONE; -dexameTHASONE 4 MG/ML 1ML VIAL (J1100 PER 1MG) As Ordered ONE; -fentaNYL 100 MCG/2 ML INJECTION As Ordered ONE; -propofoL 200 MG/20 ML VIAL As Ordered ONE
== END ==
LOC: M LAB REF 16:54
PROVIDERS: ATTEND Podiatrist
DX: L03.032 Cellulitis of left toe (principal); M79.672 Pain in left foot

== ENCOUNTER → 2023-08-10 | Outpatient (REF) | payer MEDICARE ==
[~2023-08-10] MED LIST changes: +ASPI-655 PO; -ASPI1CHW3 PO; -OXYB5TAB10 PO; +OXYB5TAB11 PO
== END ==
LOC: M LAB REF 17:34
PROVIDERS: ATTEND Podiatrist
DX: L03.039 Cellulitis of unspecified toe (principal)

== ENCOUNTER → 2023-09-22 | Outpatient (REF) | payer MEDICARE | LOC: M LAB REF 15:26 | PROVIDERS: ATTEND Podiatrist | DX: L03.032 Cellulitis of left toe (principal) ==

== ENCOUNTER → 2024-06-22 | Day surgery (SDC) | payer MEDICARE ==
[~2024-06-22] VITALS: Ht 198.1 cm; Wt 174.6 kg
[~2024-06-22] MED LIST changes: +ATROPINE SULFATE 1% OPHTH SOLN 2ML BTL OD SCH; +BSS IRRIG/VANCO(10MG)/TOBRA(5MG)/EPINEPH(1:1000-0.5CC)500ML BAG-ORONLY As Ordered ONE; +CEFUROXIME 1MG/0.1ML INTRACAMERAL INJ As Ordered ONE; +IRBE150T27 PO; -IRBE150T7 PO; +LIDOCAINE 1% SDV 5ML VIAL As Ordered ONE; +LIDOCAINE 3.5 % 1ML OPHTH TOPICAL GEL OU ONE; +MIDAZOLAM INJ 2MG/2ML VIAL As Ordered ONE; +MYRB50TA PO; +OFLOXACIN 0.3 % (OCUFLOX) OPTH SOL 5ML OD ONE; -OXYB5TAB11 PO; +OXYB5TAB14 PO; +PHENYLEPHRINE 10% OPHTH SOL 5ML OD PRN; +PHENYLEPHRINE 2.5% OPHTH SOL 2ML OD SCH; +TORS20TA2 PO; +TROPICAMIDE 1% OPHTH SOLN 15ML OD SCH; +fentaNYL 100 MCG/2 ML INJECTION As Ordered ONE; +lispro insulin SC
[2024-06-22 08:34] VITALS: BP 158/80; TEMP 97.8; O2SAT 95
== END | disposition home or self-care (01) ==
LOC: M SDC 08:10
PROVIDERS: ATTEND Ophthalmology
DX: H25.11 Age-related nuclear cataract, right eye (principal); Z53.09 Procedure and treatment not carried out because of other contraindication

== ENCOUNTER → 2024-07-07 | Outpatient (REF) | payer MEDICARE ==
[~2024-07-07] MED LIST changes: -ATROPINE SULFATE 1% OPHTH SOLN 2ML BTL OD SCH; -BSS IRRIG/VANCO(10MG)/TOBRA(5MG)/EPINEPH(1:1000-0.5CC)500ML BAG-ORONLY As Ordered ONE; -CEFUROXIME 1MG/0.1ML INTRACAMERAL INJ As Ordered ONE; +GABA-1635 PO; -GABA800T4 PO; -LIDOCAINE 1% SDV 5ML VIAL As Ordered ONE; -LIDOCAINE 3.5 % 1ML OPHTH TOPICAL GEL OU ONE; -MIDAZOLAM INJ 2MG/2ML VIAL As Ordered ONE; -OFLOXACIN 0.3 % (OCUFLOX) OPTH SOL 5ML OD ONE; -PHENYLEPHRINE 10% OPHTH SOL 5ML OD PRN; -PHENYLEPHRINE 2.5% OPHTH SOL 2ML OD SCH; -TROPICAMIDE 1% OPHTH SOLN 15ML OD SCH; -fentaNYL 100 MCG/2 ML INJECTION As Ordered ONE
[2024-07-11 23:37] LABS: CYCLIC CITRULLINATED PEPTIDE < 16 UNITS (<20)
[2024-07-12 19:52] LABS: LYME TOTAL ANTIBODY CIA <= 0.90 Index (<=0.90)
== END ==
LOC: M LAB REF 16:14
PROVIDERS: ATTEND Internal Medicine
DX: M25.50 Pain in unspecified joint (principal)

== ENCOUNTER 2024-09-02 10:07 | Inpatient (IN) | payer MEDICARE ==
[~2024-09-02] VITALS: Ht 198.1 cm; Wt 162.4 kg
[2024-09-02] MEDS ORDERED: INSU100I24 SQ (11:48)
[2024-09-02] MEDS ORDERED: AMLO1TAB24 PO (11:48)
[2024-09-02] MEDS ORDERED: HYDR25TA87 PO (12:02)
[2024-09-02] MEDS ORDERED: CYMB1CAP5 PO ×2 (12:02)
[2024-09-02] MEDS ORDERED: IRBE300T25 PO (12:02)
[2024-09-02 12:20] LABS: BASO % 0.3 % (0.0-1.0); EOS # 0.1 10^3/uL (0.0-0.5); EOS % 0.9 % (0.0-3.0); HEMATOCRIT 43.8 % (42.0-52.0); HEMOGLOBIN 14.3 g/dl (13.5-17.5); LYMPH # 0.9 10^3/uL (1.5-5.0); LYMPH % 7.6 % (24.0-44.0); MEAN CORPUSCULAR HEMOGLOBIN 30.4 pg (27.0-33.0); MEAN CORPUSCULAR HGB CONC 32.6 g/dl (32.0-36.5); NEUTROPHILS % 82.2 % (36.0-66.0); PLATELET COUNT, AUTOMATED 163 10^3/uL (150-450); RED BLOOD COUNT 4.71 10^6/uL (4.30-6.10); WHITE BLOOD COUNT 12.2 10^3/uL (4.0-10.0)
[2024-09-02 12:33] LABS: ERYTHROCYTE SEDIMENTATION RATE 95 mm/hr (0-20)
[2024-09-02 12:41] LABS: C REACTIVE PROTEIN QUANTITATIV 23.1 MG/DL (<1.0)
[2024-09-02 12:56] LABS: CALCIUM LEVEL 8.5 MG/DL (8.3-10.6); CREATININE FOR GFR 1.9 MG/DL (0.70-1.30); GLOMERULAR FILTRATION RATE 37.4 (>42)
[2024-09-02] MEDS: cefTRIAXone SOD 1 GM in DEXTROSE 5% (D5W) ADV/MINI-BAG 50 ML IV ONE (13:00)
[2024-09-02] MEDS ORDERED: VANCOMYCIN HCL 500 MG in DEXTROSE 5% (D5W) MINI-BAG PLU 100 ML IV SCH (14:50)
[2024-09-02] MEDS ORDERED: GLUCOSE 4 GM CHEW PO PRN (15:00)
[2024-09-02] MEDS ORDERED: GLUCAGON INJ 1MG VIAL SC PRN (15:00)
[2024-09-02] MEDS ORDERED: DEXTROSE 50% 50ML SYRINGE IV PRN (15:00)
[2024-09-02] MEDS ORDERED: DULA4.5P SQ (16:18)
[2024-09-02] MEDS ORDERED: HOME MED LIST COMPLETE! XX SCH (16:20)
[2024-09-02] MEDS ORDERED: propofoL 200 MG/20 ML VIAL As Ordered ONE (16:31)
[2024-09-02] MEDS ORDERED: LIDOCAINE 2% 100MG/5ML SDV (FOR ANES.) As Ordered ONE (16:31)
[2024-09-02] MEDS ORDERED: MIDAZOLAM INJ 2MG/2ML VIAL As Ordered ONE (16:57)
[2024-09-02] MEDS: GENTAMICIN SULF 80MG/2ML VIAL As Ordered ONE (17:45)
[2024-09-02] MEDS: LIDOCAINE 2% MDV 20ML VIAL As Ordered ONE (17:46)
[2024-09-02] MEDS: INSULIN LISPRO (NovoLOG) PER UNIT SC SCH (18:00)
[2024-09-02] MEDS ORDERED: KETOROLAC 60MG 2ML VIAL As Ordered ONE (18:12)
[2024-09-02 18:14] LABS: PSA SCREENING 0.7 NG/ML (< 4.00)
[2024-09-02 18:23] LABS: PROCALCITONIN 0.35 ng/ml
[2024-09-02 18:25] LABS: ALBUMIN 2.6 G/DL (3.2-5.2); BILIRUBIN,DIRECT 0.2 MG/DL (<0.4); BILIRUBIN,TOTAL 0.5 MG/DL (0.3-1.2); TOTAL PROTEIN 6.8 G/DL (5.7-8.2)
[2024-09-02 18:50] VITALS: BP 145/78; TEMP 97.5; O2SAT 96
[2024-09-02] MEDS: VANCOMYCIN 2,000 MG/400 ML IV BAG *LOAD IV ONE (18:56)
[2024-09-02] MEDS: NS 1,000 ML IV SCH (19:00)
[2024-09-02 19:20] VITALS: BP 146/75; TEMP 97.5; O2SAT 95
[2024-09-02] MEDS ORDERED: PERCOCET 5MG/325MG TAB PO PRN ×2 (19:25)
[2024-09-02 19:50] VITALS: BP 116/68; TEMP 97.5; O2SAT 95
[2024-09-02] MEDS: **hydrALAZINE HCL** 25 MG TAB PO SCH (21:23)
[2024-09-02] MEDS: GABAPENTIN 400MG CAP PO SCH (21:23)
[2024-09-02] MEDS: DULoxetine 30MG CAPSULE (CYMBALTA) PO SCH (21:23)
[2024-09-02] MEDS: amLODIPine 5 MG TAB PO SCH (21:24)
[2024-09-02] MEDS: PANTOPRAZOLE 40MG VIAL IV SCH (21:24)
[2024-09-02 21:30] VITALS: BP 159/87; TEMP 97.9; O2SAT 94
[2024-09-02] MEDS: PIPERACILLIN/TAZOBACTAM SOD 3.375 GM in DEXTROSE 5% (D5W) ADV/MINI-BAG 50 ML IV SCH (21:49)
[2024-09-02 22:30] VITALS: BP 156/84; TEMP 97.7; O2SAT 95
[2024-09-02 23:30] VITALS: BP 153/82; TEMP 97.5; O2SAT 95
[2024-09-03 00:30] VITALS: BP 154/84; TEMP 97.5; O2SAT 96
[2024-09-03] MEDS: VANCOMYCIN 1,000MG/200 ML IV BAG IV SCH (03:07)
[2024-09-03 04:30] VITALS: BP 151/87; TEMP 97.5; O2SAT 97
[2024-09-03 06:41] LABS: HEMATOCRIT 40.7 % (42.0-52.0); HEMOGLOBIN 13.2 g/dl (13.5-17.5); MEAN CORPUSCULAR HEMOGLOBIN 30.3 pg (27.0-33.0); MEAN CORPUSCULAR HGB CONC 32.4 g/dl (32.0-36.5); MEAN CORPUSCULAR VOLUME 93.3 fl (80.0-96.0); PLATELET COUNT, AUTOMATED 155 10^3/uL (150-450); RED BLOOD COUNT 4.36 10^6/uL (4.30-6.10); WHITE BLOOD COUNT 9.4 10^3/uL (4.0-10.0)
[2024-09-03 07:12] LABS: ALBUMIN 2.2 G/DL (3.2-5.2); BILIRUBIN,TOTAL 0.5 MG/DL (0.3-1.2); CALCIUM LEVEL 8.4 MG/DL (8.3-10.6); CREATININE FOR GFR 1.64 MG/DL (0.70-1.30); GLOMERULAR FILTRATION RATE 44.3 (>42); POTASSIUM SERUM 3.4 MMOL/L (3.5-5.1); TOTAL PROTEIN 6.2 G/DL (5.7-8.2)
[2024-09-03 08:30] VITALS: BP 148/89; TEMP 97; O2SAT 95
[2024-09-03] MEDS: LEVEMIR (INSULIN DETEMIR) 1 UNITS/0.01ML SC SCH (09:00)
[2024-09-03] MEDS: POTASSIUM CHLORIDE 10MEQ SR TABLET PO ONE (10:51)
[2024-09-03] MEDS: DULoxetine 30MG CAPSULE (CYMBALTA) PO SCH (10:55)
[2024-09-03] MEDS: ATORVASTATIN 10 MG TAB PO SCH (10:55)
[2024-09-03] MEDS: VANCOMYCIN 1,500 MG/300 ML IV BAG IV SCH (12:10)
[2024-09-03 12:30] VITALS: BP 166/90; TEMP 97.3; O2SAT 98
[2024-09-03 14:30] VITALS: BP 162/98; TEMP 97.3; O2SAT 97
[2024-09-03] MEDS: INSULIN LISPRO (NovoLOG) PER UNIT SC SCH ×2 (17:30→21:00)
[2024-09-03 20:00] VITALS: BP 133/82; TEMP 97.9; O2SAT 96
[2024-09-04 04:00] VITALS: BP 144/91; TEMP 97.3; O2SAT 91
[2024-09-04 05:52] LABS: HEMATOCRIT 40.2 % (42.0-52.0); HEMOGLOBIN 12.9 g/dl (13.5-17.5); MEAN CORPUSCULAR HEMOGLOBIN 29.8 pg (27.0-33.0); MEAN CORPUSCULAR HGB CONC 32.1 g/dl (32.0-36.5); MEAN CORPUSCULAR VOLUME 92.8 fl (80.0-96.0); PLATELET COUNT, AUTOMATED 173 10^3/uL (150-450); RED BLOOD COUNT 4.33 10^6/uL (4.30-6.10); WHITE BLOOD COUNT 6.9 10^3/uL (4.0-10.0)
[2024-09-04 06:19] LABS: ALBUMIN 2.1 G/DL (3.2-5.2); BILIRUBIN,TOTAL 0.5 MG/DL (0.3-1.2); CREATININE FOR GFR 1.69 MG/DL (0.70-1.30); GLOMERULAR FILTRATION RATE 42.8 (>42); POTASSIUM SERUM 3.6 MMOL/L (3.5-5.1); TOTAL PROTEIN 6.3 G/DL (5.7-8.2)
[2024-09-04] MEDS ORDERED: DOXYCYCLINE HYCLATE 100MG TABLET PO SCH (09:00)
[2024-09-04 11:45] LABS: VANCOMYCIN LEVEL TROUGH 15.1 UG/ML (10.0-20.0)
[2024-09-04 12:00] VITALS: BP 158/72; TEMP 97.3; O2SAT 92
[2024-09-04] MEDS ORDERED: CEPHALEXIN 500 MG CAP PO SCH (13:00)
[2024-09-04] MEDS: VANCOMYCIN 1,500 MG/300 ML IV BAG IV SCH (14:16)
[2024-09-04] MEDS: PIPERACILLIN/TAZOBACTAM SOD 3.375 GM in DEXTROSE 5% (D5W) ADV/MINI-BAG 50 ML IV SCH (17:39)
[2024-09-04 20:00] VITALS: BP 168/74; TEMP 97.2; O2SAT 97
[2024-09-04 23:15] VITALS: BP 164/82; O2SAT 96
[2024-09-05] MEDS: HEPARIN SOD (PORCINE) 5000UNITS/ML 1ML VIAL/SYRINGE SQ SCH (00:17)
[2024-09-05 04:00] VITALS: BP 166/84; TEMP 97.2; O2SAT 95
[2024-09-05 06:35] LABS: HEMOGLOBIN 12.8 g/dl (13.5-17.5); MEAN CORPUSCULAR HEMOGLOBIN 29.8 pg (27.0-33.0); PLATELET COUNT, AUTOMATED 187 10^3/uL (150-450); WHITE BLOOD COUNT 5.3 10^3/uL (4.0-10.0)
[2024-09-05 07:02] LABS: ALBUMIN 2.1 G/DL (3.2-5.2); BILIRUBIN,TOTAL 0.4 MG/DL (0.3-1.2); CALCIUM LEVEL 8.4 MG/DL (8.3-10.6); CREATININE FOR GFR 1.55 MG/DL (0.70-1.30); GLOMERULAR FILTRATION RATE 47.3 (>42); TOTAL PROTEIN 6.3 G/DL (5.7-8.2)
[2024-09-05 12:00] VITALS: BP 164/85; TEMP 96.8; O2SAT 96
[2024-09-05] MEDS ORDERED: SODIUM CHLORIDE 0.9% INJ 10 ML SYR IV PRN (13:40)
[2024-09-05] MEDS: SODIUM CHLORIDE 0.9% INJ 10 ML SYR IV SCH (14:02)
[2024-09-05] MEDS: FUROSEMIDE 20MG/2ML VIAL IV ONE (16:59)
[2024-09-05] MEDS: INSULIN LISPRO (NovoLOG) PER UNIT SC SCH (18:28)
[2024-09-05 20:00] VITALS: BP 152/70; TEMP 97.2; O2SAT 98
[2024-09-05] MEDS: ACETAMINOPHEN 325 MG TAB PO PRN (21:06)
[2024-09-06 00:18] VITALS: BP 158/79; TEMP 97.2; O2SAT 97
[2024-09-06 05:23] VITALS: BP_SYST 168; BP_SYST 170; BP_DIAS 94; TEMP 97.2; O2SAT 97
[2024-09-06 05:38] LABS: HEMATOCRIT 41.1 % (42.0-52.0); HEMOGLOBIN 13.1 g/dl (13.5-17.5); MEAN CORPUSCULAR HEMOGLOBIN 30.1 pg (27.0-33.0); MEAN CORPUSCULAR HGB CONC 31.9 g/dl (32.0-36.5); MEAN CORPUSCULAR VOLUME 94.5 fl (80.0-96.0); PLATELET COUNT, AUTOMATED 192 10^3/uL (150-450); RED BLOOD COUNT 4.35 10^6/uL (4.30-6.10); WHITE BLOOD COUNT 5.5 10^3/uL (4.0-10.0)
[2024-09-06] MEDS: **hydrALAZINE** 10 MG TAB PO PRN (05:59)
[2024-09-06 06:06] LABS: ALBUMIN 2.2 G/DL (3.2-5.2); BILIRUBIN,TOTAL 0.5 MG/DL (0.3-1.2); CALCIUM LEVEL 8.3 MG/DL (8.3-10.6); CREATININE FOR GFR 1.7 MG/DL (0.70-1.30); GLOMERULAR FILTRATION RATE 42.5 (>42); POTASSIUM SERUM 4.1 MMOL/L (3.5-5.1); TOTAL PROTEIN 6.7 G/DL (5.7-8.2)
[2024-09-06] MEDS: NS 1,000 ML IV SCH (08:16)
[2024-09-06] MEDS: LEVEMIR (INSULIN DETEMIR) 1 UNITS/0.01ML SC SCH (08:17)
[2024-09-06] MEDS: **hydrALAZINE HCL** 25 MG TAB PO SCH (08:17)
[2024-09-06] MEDS: NITROGLYCERIN 0.4 MG/HR PATCH TD SCH (09:28)
[2024-09-06 12:00] VITALS: BP 127/63; TEMP 97.5; O2SAT 95
[2024-09-06 15:22] LABS: C REACTIVE PROTEIN QUANTITATIV 6.4 MG/DL (<1.0)
[2024-09-06 20:00] VITALS: BP 140/84; TEMP 97.2; O2SAT 97
[2024-09-06 20:41] VITALS: BP 151/90
[2024-09-06] MEDS ORDERED: [UNRECOGNIZED DRUG - REMARK] XX SCH (21:00)
[2024-09-07] VITALS: BP 154/90; TEMP 97.7; O2SAT 96
[2024-09-07 04:00] VITALS: BP 153/87; TEMP 98.4; O2SAT 97
[2024-09-07 07:46] LABS: BASO % 0.3 % (0.0-1.0); EOS # 0.3 10^3/uL (0.0-0.5); HEMATOCRIT 41.1 % (42.0-52.0); LYMPH # 0.9 10^3/uL (1.5-5.0); LYMPH % 12.5 % (24.0-44.0); MEAN CORPUSCULAR HEMOGLOBIN 29.7 pg (27.0-33.0); MEAN CORPUSCULAR HGB CONC 31.6 g/dl (32.0-36.5); MEAN CORPUSCULAR VOLUME 94.1 fl (80.0-96.0); MONO # 0.4 10^3/uL (0.0-0.8); MONO % 4.7 % (2.0-8.0); NEUTROPHILS # 5.8 10^3/uL (1.5-8.5); NEUTROPHILS % 77.8 % (36.0-66.0); PLATELET COUNT, AUTOMATED 214 10^3/uL (150-450); RED BLOOD COUNT 4.37 10^6/uL (4.30-6.10); WHITE BLOOD COUNT 7.5 10^3/uL (4.0-10.0)
[2024-09-07 08:00] VITALS: BP 187/100; O2SAT 96
[2024-09-07 08:17] LABS: ALBUMIN 2.3 G/DL (3.2-5.2); BILIRUBIN,TOTAL 0.5 MG/DL (0.3-1.2); CALCIUM LEVEL 8.6 MG/DL (8.3-10.6); CREATININE FOR GFR 1.67 MG/DL (0.70-1.30); GLOMERULAR FILTRATION RATE 43.4 (>42); POTASSIUM SERUM 4.2 MMOL/L (3.5-5.1)
[2024-09-07 09:00] VITALS: BP 187/100; O2SAT 96
[2024-09-07 12:00] VITALS: BP 172/92; TEMP 97; O2SAT 96
[2024-09-07] MEDS ORDERED: CEPH500C PO (12:47)
[2024-09-07] MEDS ORDERED: AMLO1TAB25 PO (12:47)
[2024-09-07] MEDS ORDERED: METR-265 PO (12:47)
[2024-09-07] MEDS ORDERED: HYDR25TA87 PO (12:47)
[2024-09-08] MEDS ORDERED: CEPH500T PO (08:52)
== END 2024-09-07 15:55 | disposition home health service (06) | DRG 464 ==
LOC: M ED 10:07 → M ED INP 14:50 → M MSPAV 15:51
PROVIDERS: ADMIT Internal Medicine; ATTEND Hospitalist
PROC: 0JBQ0ZZ Excision of Right Foot Subcutaneous Tissue and Fascia, Open Approach (ICD-10-PCS; principal; 2024-09-02 16:30)
DX: M72.6 Necrotizing fasciitis (principal); N17.9 Acute kidney failure, unspecified; I82.611 Acute embolism and thrombosis of superficial veins of right upper extremity; Z68.41 Body mass index [BMI] 40.0-44.9, adult; I10 Essential (primary) hypertension; E11.42 Type 2 diabetes mellitus with diabetic polyneuropathy; E78.5 Hyperlipidemia, unspecified; M10.9 Gout, unspecified; E66.01 Morbid (severe) obesity due to excess calories; G47.33 Obstructive sleep apnea (adult) (pediatric); K21.9 Gastro-esophageal reflux disease without esophagitis; F32.A Depression, unspecified; E11.621 Type 2 diabetes mellitus with foot ulcer; B95.61 Methicillin susceptible Staphylococcus aureus infection as the cause of diseases classified elsewhere; L97.519 Non-pressure chronic ulcer of other part of right foot with unspecified severity; L97.529 Non-pressure chronic ulcer of other part of left foot with unspecified severity; R31.9 Hematuria, unspecified; Z79.4 Long term (current) use of insulin; Z79.899 Other long term (current) drug therapy

== ENCOUNTER → 2024-09-19 | Outpatient (REF) | payer MEDICARE ==
[~2024-09-19] MED LIST changes: +AMLO1TAB24 PO; +CEPH500C PO; +CEPH500T PO; +CYMB1CAP5 PO; +DULA4.5P SQ; +HYDR25TA87 PO; +INSU100I24 SQ; +IRBE300T25 PO; +METR-265 PO
== END ==
LOC: M LAB REF 17:04
PROVIDERS: ATTEND Internal Medicine
DX: G89.29 Other chronic pain (principal)

== ENCOUNTER → 2024-09-28 | Outpatient (REF) | payer MEDICARE | LOC: M LAB REF 12:11 | PROVIDERS: ATTEND Internal Medicine | DX: A49.01 Methicillin susceptible Staphylococcus aureus infection, unspecified site (principal) ==

== ENCOUNTER → 2024-10-21 | Outpatient (CLI) | payer MEDICARE | LOC: M PLAIMG 13:45 | PROVIDERS: ATTEND Internal Medicine Infectious Disease | DX: R51.9 Headache, unspecified (principal); R29.6 Repeated falls ==

== ENCOUNTER 2024-11-10 17:26 | Inpatient (IN) | payer MEDICARE ==
[~2024-11-10] VITALS: Ht 198.1 cm; Wt 158.6 kg
[2024-11-10 18:29] LABS: VENOUS BASE EXCESS -4.3 (-2.0-2.0); VENOUS HCO3 21.5 MMOL/L (23.0-27.0); VENOUS O2 SATURATION 61.1 % (60.0-80.0); VENOUS PARTIAL PRESSURE CO2 42.1 mmHg (38.0-50.0); VENOUS PARTIAL PRESSURE O2 33.9 mmHg (30.0-50.0); VENOUS PH 7.326 UNITS (7.330-7.430); VENOUS STANDARD HCO3 20.2 MMOL/L; VENOUS TOTAL CO2 22.8 MMOL/L (24.0-28.0)
[2024-11-10 18:49] LABS: BASO # 0.1 10^3/uL (0.0-0.2); BASO % 0.5 % (0.0-1.0); EOS # 0.4 10^3/uL (0.0-0.5); EOS % 4.2 % (0.0-3.0); HEMOGLOBIN 12.2 g/dl (13.5-17.5); LYMPH # 1.1 10^3/uL (1.5-5.0); LYMPH % 11.9 % (24.0-44.0); MEAN CORPUSCULAR HEMOGLOBIN 30.5 pg (27.0-33.0); MEAN CORPUSCULAR VOLUME 92.5 fl (80.0-96.0); MONO # 0.5 10^3/uL (0.0-0.8); MONO % 4.8 % (2.0-8.0); NEUTROPHILS # 7.4 10^3/uL (1.5-8.5); NEUTROPHILS % 78.3 % (36.0-66.0); PLATELET COUNT, AUTOMATED 156 10^3/uL (150-450); WHITE BLOOD COUNT 9.4 10^3/uL (4.0-10.0)
[2024-11-10 18:59] LABS: ALBUMIN 3.8 G/DL (3.2-5.2); BILIRUBIN,DIRECT 0.2 MG/DL (<0.4); BILIRUBIN,TOTAL 0.4 MG/DL (0.3-1.2); CALCIUM LEVEL 9.5 MG/DL (8.3-10.6); CREATININE FOR GFR 6.2 MG/DL (0.70-1.30); GLOMERULAR FILTRATION RATE 9.5 (>42); POTASSIUM SERUM 4.3 MMOL/L (3.5-5.1)
[2024-11-10] MEDS ORDERED: TORS20TA2 PO (19:00)
[2024-11-10] MEDS ORDERED: AMLO1TAB24 PO (19:00)
[2024-11-10] MEDS ORDERED: SPIR-10 PO (19:00)
[2024-11-10] MEDS ORDERED: JARD1TAB PO (19:00)
[2024-11-10] MEDS ORDERED: GABA-1172 PO (19:00)
[2024-11-10] MEDS ORDERED: METO25TA PO (19:00)
[2024-11-10] MEDS ORDERED: SOLI10TA PO (19:00)
[2024-11-10 19:02] LABS: THYROID STIMULATING HORMONE 3.219 uIU/ML (0.55-4.78)
[2024-11-10] MEDS ORDERED: HOME MED LIST COMPLETE! XX SCH (19:05)
[2024-11-10 19:27] LABS: KETONE, URINE AUTO RFX NEGATIVE (NEGATIVE); LEUKOCYTE ESTERASE UR AUTO RFX NEGATIVE (NEGATIVE); NITRITE, URINE AUTO RFX NEGATIVE (NEGATIVE); RBC, URINE AUTO RFX TNTC /HPF (0-3); SQUAM EPITHELIAL CELL UR AURFX 0 /HPF (0-6)
[2024-11-10 19:39] LABS: WBC, URINE AUTO RFX 25 /HPF (0-3)
[2024-11-10] MEDS ORDERED: MOM 30ML SUSPENSION UDC PO PRN (21:10)
[2024-11-10] MEDS ORDERED: MAALOX 30 ML SUSP *UDC PO PRN (21:10)
[2024-11-10] MEDS: NS (Normal Saline) 0.9% 1,000 ML IV SCH (21:51)
[2024-11-10 22:25] LABS: CREATININE,RANDOM URINE 69.6 MG/DL
[2024-11-10 22:34] LABS: TOTAL PROTEIN,RANDOM URINE 318.8 MG/DL (0.0-14.0)
[2024-11-10 23:20] LABS: URIC ACID 8.6 MG/DL (3.7-9.2)
[2024-11-10 23:23] LABS: PHOSPHORUS LEVEL 5.6 MG/DL (2.4-5.1); PTH INTACT 340.2 PG/ML (18.5-88.0)
[2024-11-11] MEDS ORDERED: DEXTROSE 50% 50ML SYRINGE IV PRN (05:25)
[2024-11-11] MEDS ORDERED: GLUCAGON INJ 1MG VIAL SC PRN (05:25)
[2024-11-11] MEDS ORDERED: GLUCOSE 4 GM CHEW PO PRN (05:25)
[2024-11-11 08:39] LABS: IONIZED CALCIUM 4.6 MG/DL (4.5-5.3)
[2024-11-11 08:44] LABS: HEMATOCRIT 36.1 % (42.0-52.0); HEMOGLOBIN 12.1 g/dl (13.5-17.5); MEAN CORPUSCULAR HEMOGLOBIN 30.3 pg (27.0-33.0); MEAN CORPUSCULAR HGB CONC 33.5 g/dl (32.0-36.5); MEAN CORPUSCULAR VOLUME 90.3 fl (80.0-96.0); PLATELET COUNT, AUTOMATED 174 10^3/uL (150-450); WHITE BLOOD COUNT 9.9 10^3/uL (4.0-10.0)
[2024-11-11] MEDS ORDERED: ONDANSETRON 4MG 2ML VIAL As Ordered ONE (08:46)
[2024-11-11] MEDS: ONDANSETRON 4MG 2ML VIAL IV ONE (08:51)
[2024-11-11] MEDS ORDERED: DAPAGLIFLOZIN PROPANEDIOL 10MG TABLET (FARXIGA) PO SCH (09:00)
[2024-11-11] MEDS ORDERED: HEPARIN SOD (PORCINE) 5000UNITS/ML 1ML VIAL/SYRINGE SC SCH (09:00)
[2024-11-11 09:11] LABS: CPK CREATINE PHOSPHOKINASE 83 U/L (46-171)
[2024-11-11 09:13] LABS: COMPLEMENT C3 150.2 MG/DL (90.0-170.0); COMPLEMENT C4 44.1 MG/DL (12-36)
[2024-11-11 09:14] LABS: HEPATITIS B SURFACE ANTIBODY NEGATIVE (POSITIVE)
[2024-11-11 09:17] LABS: OSMOLALITY SERUM 329 MOSM/KG (280-301)
[2024-11-11 09:18] LABS: PROCALCITONIN 0.22 ng/ml
[2024-11-11 09:25] LABS: HEPATITIS B SURFACE ANTIGEN NEGATIVE (NEGATIVE)
[2024-11-11 09:46] LABS: HEPATITIS C VIRUS ABY INDEX 0.02 INDEX (<0.8)
[2024-11-11 09:47] LABS: HEPATITIS B CORE ANTIBODY IGM NEGATIVE (NEGATIVE)
[2024-11-11 09:48] LABS: ALBUMIN 3.6 G/DL (3.2-5.2); ALKALINE PHOSPHATASE 52 U/L (40-129); ALT/SGPT 14 U/L (7.0-40); AST/SGOT 16 U/L (<34); BILIRUBIN,TOTAL 0.7 MG/DL (0.3-1.2); BLOOD UREA NITROGEN 115 MG/DL (9-23); CALCIUM LEVEL 9.3 MG/DL (8.3-10.6); CARBON DIOXIDE LEVEL 27 MMOL/L (20-31); CHLORIDE LEVEL 101 MMOL/L (98-107); CREATININE FOR GFR 6.44 MG/DL (0.70-1.30); GLOMERULAR FILTRATION RATE 9.1 (>42); GLUCOSE, FASTING 91 MG/DL (74-106); POTASSIUM SERUM 3.7 MMOL/L (3.5-5.1); SODIUM LEVEL 139 MMOL/L (136-145); TOTAL PROTEIN 7.6 G/DL (5.7-8.2)
[2024-11-11] MEDS: INSULIN LISPRO (NovoLOG) PER UNIT SC SCH (09:52)
[2024-11-11] MEDS: PANTOPRAZOLE 40MG VIAL IV SCH (10:18)
[2024-11-11] MEDS: LEVEMIR (INSULIN DETEMIR) 1 UNITS/0.01ML SC SCH (10:19)
[2024-11-11] MEDS: amLODIPine 5 MG TAB PO SCH (10:20)
[2024-11-11] MEDS: **hydrALAZINE HCL** 25 MG TAB PO SCH (10:21)
[2024-11-11] MEDS: GABAPENTIN 300 MG CAP PO SCH (10:21)
[2024-11-11] MEDS: DULoxetine 30MG CAPSULE (CYMBALTA) PO SCH ×2 (10:21→20:19)
[2024-11-11] MEDS: DOCUSATE SODIUM 100MG CAPSULE PO SCH (10:22)
[2024-11-11] MEDS: SOLIFENACIN 5 MG TAB PO SCH (10:22)
[2024-11-11] MEDS: ATORVASTATIN 10 MG TAB PO SCH (10:22)
[2024-11-11 15:15] VITALS: BP 139/68; TEMP 97.4; O2SAT 95
[2024-11-11 16:07] LABS: HEMATOCRIT 32.8 % (42.0-52.0); HEMOGLOBIN 11.2 g/dl (13.5-17.5)
[2024-11-11 20:54] VITALS: BP 174/56; TEMP 98.6; O2SAT 94
[2024-11-12 05:16] VITALS: BP 103/70; TEMP 97; O2SAT 96
[2024-11-12 06:57] LABS: HEMATOCRIT 32.3 % (42.0-52.0); HEMOGLOBIN 10.6 g/dl (13.5-17.5); MEAN CORPUSCULAR HEMOGLOBIN 30.5 pg (27.0-33.0); MEAN CORPUSCULAR HGB CONC 32.8 g/dl (32.0-36.5); MEAN CORPUSCULAR VOLUME 92.8 fl (80.0-96.0); PLATELET COUNT, AUTOMATED 127 10^3/uL (150-450); RED BLOOD COUNT 3.48 10^6/uL (4.30-6.10); WHITE BLOOD COUNT 7.1 10^3/uL (4.0-10.0)
[2024-11-12 07:25] LABS: ALBUMIN 2.9 G/DL (3.2-5.2); CALCIUM LEVEL 8.9 MG/DL (8.3-10.6); CREATININE FOR GFR 6.28 MG/DL (0.70-1.30); GLOMERULAR FILTRATION RATE 9.4 (>42); MAGNESIUM LEVEL 1.9 MG/DL (1.8-2.4); POTASSIUM SERUM 3.7 MMOL/L (3.5-5.1)
[2024-11-12 08:53] LABS: CHOLESTEROL RISK RATIO 3.71 (<5); HDL CHOLESTEROL 26.4 MG/DL (>40); LDL CHOLESTEROL 53.2 MG/DL (<100); NON-HDL-C 71.6 MG/DL
[2024-11-12] MEDS ORDERED: LEVEMIR (INSULIN DETEMIR) 1 UNITS/0.01ML SC SCH (09:00)
[2024-11-12] MEDS: GABAPENTIN 300 MG CAP PO SCH (09:39)
[2024-11-12 12:00] VITALS: BP 131/65; TEMP 97.8
[2024-11-12 15:18] LABS: HEMATOCRIT 31.8 % (42.0-52.0); HEMOGLOBIN 10.4 g/dl (13.5-17.5)
[2024-11-12 19:51] VITALS: BP 143/70; TEMP 97.3
[2024-11-13 05:17] VITALS: BP 131/65; TEMP 98; O2SAT 96
[2024-11-13 06:55] LABS: HEMOGLOBIN 9.8 g/dl (13.5-17.5); MEAN CORPUSCULAR HGB CONC 32.7 g/dl (32.0-36.5); MEAN CORPUSCULAR VOLUME 94.9 fl (80.0-96.0); PLATELET COUNT, AUTOMATED 128 10^3/uL (150-450); RED BLOOD COUNT 3.16 10^6/uL (4.30-6.10); WHITE BLOOD COUNT 6.5 10^3/uL (4.0-10.0)
[2024-11-13 07:23] LABS: ALBUMIN 2.8 G/DL (3.2-5.2); BLOOD UREA NITROGEN 101 MG/DL (9-23); CALCIUM LEVEL 8.1 MG/DL (8.3-10.6); CARBON DIOXIDE LEVEL 24 MMOL/L (20-31); CHLORIDE LEVEL 107 MMOL/L (98-107); CREATININE FOR GFR 6.22 MG/DL (0.70-1.30); GLOMERULAR FILTRATION RATE 9.5 (>42); GLUCOSE, FASTING 155 MG/DL (74-106); MAGNESIUM LEVEL 1.9 MG/DL (1.8-2.4); PHOSPHORUS LEVEL 6.8 MG/DL (2.4-5.1); SODIUM LEVEL 144 MMOL/L (136-145)
[2024-11-13 12:00] VITALS: BP 134/69; TEMP 97.3
[2024-11-13 12:57] LABS: HEPATITIS B SURFACE ANTIBODY NEGATIVE (POSITIVE)
[2024-11-13 13:09] LABS: HEPATITIS B SURFACE ANTIGEN NEGATIVE (NEGATIVE)
[2024-11-13 13:29] LABS: HEPATITIS B CORE ANTIBODY IGM NEGATIVE (NEGATIVE); HEPATITIS C VIRUS ABY INDEX 0.03 INDEX (<0.8)
[2024-11-13 20:24] VITALS: BP 136/74; TEMP 98.4; O2SAT 94
[2024-11-13] MEDS: RAMELTEON 8 MG TAB (ROZEREM) PO ONE (22:51)
[2024-11-14 04:47] VITALS: BP 132/67; TEMP 97.1; O2SAT 96
[2024-11-14 06:15] LABS: HEMOGLOBIN 9.3 g/dl (13.5-17.5); MEAN CORPUSCULAR HEMOGLOBIN 30.6 pg (27.0-33.0); MEAN CORPUSCULAR HGB CONC 33.2 g/dl (32.0-36.5); MEAN CORPUSCULAR VOLUME 92.1 fl (80.0-96.0); PLATELET COUNT, AUTOMATED 115 10^3/uL (150-450); RED BLOOD COUNT 3.04 10^6/uL (4.30-6.10); WHITE BLOOD COUNT 5.7 10^3/uL (4.0-10.0)
[2024-11-14 06:38] LABS: ALBUMIN 2.8 G/DL (3.2-5.2); CALCIUM LEVEL 8.1 MG/DL (8.3-10.6); CREATININE FOR GFR 5.82 MG/DL (0.70-1.30); GLOMERULAR FILTRATION RATE 10.3 (>42); MAGNESIUM LEVEL 1.8 MG/DL (1.8-2.4); PHOSPHORUS LEVEL 6.3 MG/DL (2.4-5.1); POTASSIUM SERUM 3.9 MMOL/L (3.5-5.1)
[2024-11-14] MEDS ORDERED: SODIUM CHLORIDE 0.9% 1000 ML IV PRN (06:50)
[2024-11-14] MEDS ORDERED: HEPARIN 1,000UNITS/ML 10ML VIAL (FOR RADIOLOGY & DIALYSIS ONLY) IV PRN (06:50)
[2024-11-14] MEDS ORDERED: HEPARIN 1,000UNITS/ML 10ML VIAL (FOR RADIOLOGY & DIALYSIS ONLY) As Ordered ONE (08:24)
[2024-11-14] MEDS ORDERED: LIDOCAINE 1% MDV 20ML VIAL As Ordered ONE (08:24)
[2024-11-14] MEDS ORDERED: fentaNYL 100 MCG/2 ML INJECTION As Ordered ONE (08:25)
[2024-11-14] MEDS ORDERED: MIDAZOLAM INJ 2MG/2ML VIAL As Ordered ONE (08:25)
[2024-11-14] MEDS: NS (Normal Saline) 0.9% 1,000 ML IV SCH (08:35)
[2024-11-14] MEDS ORDERED: ceFAZolin SOD 2 GM in IV 1 EA IV ONE (08:35)
[2024-11-14] MEDS ORDERED: ceFAZolin SOD 3 GM in IV 1 EA IV ONE (08:35)
[2024-11-14] MEDS: ceFAZolin SOD 2 GM in IV 1 EA IV ONE (09:20)
[2024-11-14] MEDS: ceFAZolin SOD 1 GM in DEXTROSE 5% (D5W) ADV/MINI-BAG 50 ML IV ONE (09:40)
[2024-11-14 12:00] VITALS: BP 154/84; TEMP 97.2; O2SAT 99
[2024-11-14] MEDS: HEPARIN 1,000UNITS/ML 10ML VIAL (FOR RADIOLOGY & DIALYSIS ONLY) XX SCH (13:56)
[2024-11-14 17:11] LABS: ANA SCREEN, IFA NEGATIVE (NEGATIVE)
[2024-11-14 20:03] VITALS: BP 132/68; TEMP 97.6; O2SAT 98
[2024-11-15] MEDS: RAMELTEON 8 MG TAB (ROZEREM) PO PRN (00:28)
[2024-11-15 04:12] VITALS: BP 156/99; TEMP 97; O2SAT 99
[2024-11-15] MEDS ORDERED: SODIUM CHLORIDE 0.9% 1000 ML IV PRN (06:00)
[2024-11-15] MEDS ORDERED: HEPARIN 1,000UNITS/ML 10ML VIAL (FOR RADIOLOGY & DIALYSIS ONLY) IV PRN (06:00)
[2024-11-15] MEDS: ONDANSETRON 4MG 2ML VIAL IV PRN (06:30)
[2024-11-15 06:56] LABS: HEMATOCRIT 30.9 % (42.0-52.0); HEMOGLOBIN 10.3 g/dl (13.5-17.5); MEAN CORPUSCULAR HEMOGLOBIN 30.7 pg (27.0-33.0); MEAN CORPUSCULAR HGB CONC 33.3 g/dl (32.0-36.5); PLATELET COUNT, AUTOMATED 122 10^3/uL (150-450); RED BLOOD COUNT 3.36 10^6/uL (4.30-6.10); WHITE BLOOD COUNT 6.4 10^3/uL (4.0-10.0)
[2024-11-15 07:20] LABS: ALBUMIN 3.1 G/DL (3.2-5.2); CALCIUM LEVEL 8.4 MG/DL (8.3-10.6); CREATININE FOR GFR 4.44 MG/DL (0.70-1.30); MAGNESIUM LEVEL 1.8 MG/DL (1.8-2.4); PHOSPHORUS LEVEL 5.2 MG/DL (2.4-5.1); POTASSIUM SERUM 4.2 MMOL/L (3.5-5.1)
[2024-11-15] MEDS: HEPARIN 1,000UNITS/ML 10ML VIAL (FOR RADIOLOGY & DIALYSIS ONLY) XX SCH (09:30)
[2024-11-15 10:57] LABS: PERCENT SATURATION 24.1 % (19.7-50.0)
[2024-11-15 10:59] LABS: FOLATE 6.92 NG/ML (>5.4)
[2024-11-15] MEDS ORDERED: LIDOCAINE 2% 100MG/5ML SDV (FOR ANES.) As Ordered ONE (11:37)
[2024-11-15] MEDS ORDERED: ACETAMINOPHEN 1000MG/100ML IV BAG As Ordered ONE (11:37)
[2024-11-15] MEDS ORDERED: propofoL 200 MG/20 ML VIAL As Ordered ONE (11:37)
[2024-11-15] MEDS ORDERED: ceFAZolin SOD 3 GM in IV 1 EA IV ONE (12:00)
[2024-11-15] MEDS ORDERED: ROCURONIUM BROMIDE 50MG/5ML VIAL As Ordered ONE (12:12)
[2024-11-15] MEDS ORDERED: SUGAMMADEX SODIUM 500 MG/5 ML VIAL (BRIDION) As Ordered ONE (12:13)
[2024-11-15] MEDS: ceFAZolin 2 GM/D5W 50 ML IV BAG As Ordered ONE (12:30)
[2024-11-15] MEDS: ceFAZolin 1GM VIAL As Ordered ONE (12:30)
[2024-11-15] MEDS ORDERED: LABETALOL 100MG/20ML VIAL As Ordered ONE (12:46)
[2024-11-15] MEDS ORDERED: GLYCOPYRROLATE INJ 0.2 MG/ML 2 ML VIAL As Ordered ONE (12:53)
[2024-11-15] MEDS ORDERED: NEOSTIGMINE 10MG 10ML VIAL As Ordered ONE (12:53)
[2024-11-15] MEDS ORDERED: METOCLOPRAMIDE INJ 10MG/2ML VIAL IV PRN (14:20)
[2024-11-15] MEDS ORDERED: ONDANSETRON 4MG 2ML VIAL IV PRN (14:20)
[2024-11-15] MEDS ORDERED: fentaNYL 100 MCG/2 ML INJECTION IV PRN (14:20)
[2024-11-15] MEDS: oxyCODONE 5MG TAB PO PRN (14:26)
[2024-11-15] MEDS: HYDROMORPHONE HCL 0.5 MG/ 0.5 ML SYRINGE IV PRN (14:26)
[2024-11-15] MEDS: oxyBUTYnin 5 MG TAB PO PRN (14:41)
[2024-11-15 14:53] LABS: ANTI-GLOMERULAR BASEMENT MEMB < 1.0 AI (<1.0)
[2024-11-15 15:30] VITALS: BP 161/81; TEMP 97.5; O2SAT 97
[2024-11-15 16:00] VITALS: BP 140/76; TEMP 97.6; O2SAT 98
[2024-11-15 17:00] VITALS: BP 154/67; TEMP 97.6; O2SAT 99
[2024-11-15 18:00] VITALS: BP 150/62; TEMP 97.4; O2SAT 97
[2024-11-15 20:00] VITALS: BP 131/74; TEMP 97.3; O2SAT 98
[2024-11-15] MEDS: METOCLOPRAMIDE INJ 10MG/2ML VIAL IV ONE (21:30)
[2024-11-16] VITALS: BP 136/76; TEMP 97.2; O2SAT 94
[2024-11-16 04:18] VITALS: BP 169/92; TEMP 97; O2SAT 96
[2024-11-16] MEDS: LR 1,000 ML IV SCH (07:32)
[2024-11-16] MEDS: ceFAZolin SOD 2 GM in IV 1 EA IV ONE (07:33)
[2024-11-16] MEDS: ceFAZolin SOD 1 GM in DEXTROSE 5% (D5W) ADV/MINI-BAG 50 ML IV ONE (07:33)
[2024-11-16 07:41] LABS: HEMATOCRIT 31.4 % (42.0-52.0); HEMOGLOBIN 10.1 g/dl (13.5-17.5); MEAN CORPUSCULAR HEMOGLOBIN 29.8 pg (27.0-33.0); MEAN CORPUSCULAR HGB CONC 32.2 g/dl (32.0-36.5); MEAN CORPUSCULAR VOLUME 92.6 fl (80.0-96.0); PLATELET COUNT, AUTOMATED 115 10^3/uL (150-450); RED BLOOD COUNT 3.39 10^6/uL (4.30-6.10); WHITE BLOOD COUNT 5.5 10^3/uL (4.0-10.0)
[2024-11-16 08:00] VITALS: BP 130/70; TEMP 97.4; O2SAT 96
[2024-11-16 08:06] LABS: ALBUMIN 3.1 G/DL (3.2-5.2); CALCIUM LEVEL 8.8 MG/DL (8.3-10.6); CREATININE FOR GFR 3.98 MG/DL (0.70-1.30); GLOMERULAR FILTRATION RATE 15.9 (>42); MAGNESIUM LEVEL 1.7 MG/DL (1.8-2.4); PHOSPHORUS LEVEL 5.3 MG/DL (2.4-5.1); POTASSIUM SERUM 4.7 MMOL/L (3.5-5.1)
[2024-11-16] MEDS: ACETAMINOPHEN 325 MG TAB PO PRN (09:10)
[2024-11-16] MEDS: MAG SULF 1GM/100ML (MAG RUN) 1 GM in IV 1 EA IV SCH (09:14)
[2024-11-16] MEDS ORDERED: METOCLOPRAMIDE INJ 10MG/2ML VIAL IV PRN (09:30)
[2024-11-16 12:00] VITALS: BP 130/74; TEMP 97.7; O2SAT 99
[2024-11-16 19:53] VITALS: BP 138/76; TEMP 97.9; O2SAT 94
[2024-11-16 20:00] VITALS: BP 138/73; TEMP 97.7; O2SAT 98
[2024-11-17 01:07] LABS: ANCA SCREEN Negative (Negative)
[2024-11-17 04:00] VITALS: TEMP 97.7; O2SAT 96
[2024-11-17 05:01] VITALS: BP 146/76; O2SAT 100
[2024-11-17 05:18] LABS: ANTI DS-DNA AB NEGATIVE (NEGATIVE)
[2024-11-17 06:44] LABS: HEMATOCRIT 30.1 % (42.0-52.0); MEAN CORPUSCULAR HEMOGLOBIN 30.8 pg (27.0-33.0); MEAN CORPUSCULAR HGB CONC 33.2 g/dl (32.0-36.5); MEAN CORPUSCULAR VOLUME 92.6 fl (80.0-96.0); PLATELET COUNT, AUTOMATED 118 10^3/uL (150-450); RED BLOOD COUNT 3.25 10^6/uL (4.30-6.10); WHITE BLOOD COUNT 8.6 10^3/uL (4.0-10.0)
[2024-11-17] MEDS ORDERED: HEPARIN 1,000UNITS/ML 10ML VIAL (FOR RADIOLOGY & DIALYSIS ONLY) XX SCH (07:00)
[2024-11-17] MEDS ORDERED: SODIUM CHLORIDE 0.9% 1000 ML IV PRN (07:00)
[2024-11-17 07:20] LABS: CALCIUM LEVEL 8.9 MG/DL (8.3-10.6); CREATININE FOR GFR 4.58 MG/DL (0.70-1.30); GLOMERULAR FILTRATION RATE 13.5 (>42); MAGNESIUM LEVEL 2.1 MG/DL (1.8-2.4); PHOSPHORUS LEVEL 5.3 MG/DL (2.4-5.1)
[2024-11-17] MEDS: HEPARIN 1,000UNITS/ML 10ML VIAL (FOR RADIOLOGY & DIALYSIS ONLY) IV PRN (09:37)
[2024-11-17 20:00] VITALS: BP 117/67; O2SAT 95
[2024-11-18 04:00] VITALS: BP 116/60; O2SAT 98
[2024-11-18 07:08] LABS: HEMATOCRIT 29.7 % (42.0-52.0); HEMOGLOBIN 9.7 g/dl (13.5-17.5); MEAN CORPUSCULAR HEMOGLOBIN 30.7 pg (27.0-33.0); MEAN CORPUSCULAR HGB CONC 32.7 g/dl (32.0-36.5); PLATELET COUNT, AUTOMATED 106 10^3/uL (150-450); RED BLOOD COUNT 3.16 10^6/uL (4.30-6.10); WHITE BLOOD COUNT 10.6 10^3/uL (4.0-10.0)
[2024-11-18 07:45] LABS: CALCIUM LEVEL 8.4 MG/DL (8.3-10.6); CREATININE FOR GFR 4.08 MG/DL (0.70-1.30); GLOMERULAR FILTRATION RATE 15.5 (>42); MAGNESIUM LEVEL 1.8 MG/DL (1.8-2.4); PHOSPHORUS LEVEL 3.7 MG/DL (2.4-5.1)
[2024-11-18 12:00] VITALS: BP 129/69; TEMP 97.5
[2024-11-18 20:00] VITALS: BP 140/76; TEMP 97; O2SAT 96
[2024-11-18] MEDS: LEVEMIR (INSULIN DETEMIR) 1 UNITS/0.01ML SC SCH (20:49)
[2024-11-19 04:00] VITALS: BP 105/59; TEMP 97.5; O2SAT 96
[2024-11-19] MEDS ORDERED: HEPARIN 1,000UNITS/ML 10ML VIAL (FOR RADIOLOGY & DIALYSIS ONLY) IV PRN (06:00)
[2024-11-19] MEDS ORDERED: SODIUM CHLORIDE 0.9% 1000 ML IV PRN (06:00)
[2024-11-19] MEDS ORDERED: HEPARIN 1,000UNITS/ML 10ML VIAL (FOR RADIOLOGY & DIALYSIS ONLY) XX SCH (06:00)
[2024-11-19] MEDS ORDERED: LIDOCAINE 1% SDV 5ML VIAL SC PRN (06:00)
[2024-11-19 12:00] VITALS: BP 136/74; TEMP 97.5; O2SAT 98
[2024-11-19 20:00] VITALS: BP 98/69; TEMP 97.7; O2SAT 96
[2024-11-20 03:57] VITALS: BP 128/68; TEMP 97.9; O2SAT 97
[2024-11-20 12:00] VITALS: BP 120/70; TEMP 97.7; O2SAT 98
[2024-11-20 20:00] VITALS: BP 133/74; TEMP 97.5; O2SAT 98
[2024-11-21 04:00] VITALS: BP 149/79; TEMP 97.5; O2SAT 96
[2024-11-21] MEDS ORDERED: LIDOCAINE 1% SDV 5ML VIAL SC PRN (06:00)
[2024-11-21] MEDS ORDERED: HEPARIN 1,000UNITS/ML 10ML VIAL (FOR RADIOLOGY & DIALYSIS ONLY) XX SCH (06:00)
[2024-11-21] MEDS ORDERED: SODIUM CHLORIDE 0.9% 1000 ML IV PRN (06:00)
[2024-11-21] MEDS ORDERED: HEPARIN 1,000UNITS/ML 10ML VIAL (FOR RADIOLOGY & DIALYSIS ONLY) IV PRN (06:00)
[2024-11-21 15:32] LABS: CALCIUM LEVEL 8.3 MG/DL (8.3-10.6); CREATININE FOR GFR 3.23 MG/DL (0.70-1.30); GLOMERULAR FILTRATION RATE 20.3 (>42); POTASSIUM SERUM 3.5 MMOL/L (3.5-5.1)
[2024-11-21 19:52] VITALS: BP 114/69; TEMP 97.9; O2SAT 97
[2024-11-22 04:08] VITALS: BP 139/82; TEMP 97.7; O2SAT 98
[2024-11-22 12:00] VITALS: BP 129/70; TEMP 97.5; O2SAT 98
[2024-11-22 20:05] VITALS: BP 124/62; TEMP 97.5; O2SAT 98
[2024-11-23 04:54] VITALS: BP 138/73; TEMP 97.3; O2SAT 98
[2024-11-23 05:08] VITALS: BP 138/73
[2024-11-23] MEDS ORDERED: SODIUM CHLORIDE 0.9% 1000 ML IV PRN (06:00)
[2024-11-23] MEDS ORDERED: LIDOCAINE 1% SDV 5ML VIAL SC PRN (06:00)
[2024-11-23] MEDS ORDERED: HEPARIN 1,000UNITS/ML 10ML VIAL (FOR RADIOLOGY & DIALYSIS ONLY) IV PRN (06:00)
[2024-11-23] MEDS: HEPARIN 1,000UNITS/ML 10ML VIAL (FOR RADIOLOGY & DIALYSIS ONLY) XX SCH (08:48)
[2024-11-23] MEDS ORDERED: TOUJ1.2I SC (11:36)
[2024-11-23] MEDS ORDERED: INSU100I24 SQ (11:36)
[2024-11-23] MEDS ORDERED: OXYB5TAB14 PO (11:36)
[2024-11-23] MEDS ORDERED: COLA100C5 PO (11:36)
[2024-11-23] MEDS ORDERED: GABA-1172 PO (11:36)
== END 2024-11-23 13:55 | disposition home or self-care (01) | DRG 668 ==
LOC: M ED 17:26 → M ED INP 21:07 → M MS5PR 11-11 15:10
PROVIDERS: ADMIT Student in an Organized Health Care Education/Training Program; ATTEND Internal Medicine
PROC: 0JH63XZ Insertion of Tunneled Vascular Access Device into Chest Subcutaneous Tissue and Fascia, Percutaneous Approach (ICD-10-PCS; 2024-11-14)
PROC: 0TBB8ZX Excision of Bladder, Via Natural or Artificial Opening Endoscopic, Diagnostic (ICD-10-PCS; principal; 2024-11-15 12:00)
DX: C67.9 Malignant neoplasm of bladder, unspecified (principal); N18.6 End stage renal disease; N17.9 Acute kidney failure, unspecified; I12.0 Hypertensive chronic kidney disease with stage 5 chronic kidney disease or end stage renal disease; D62 Acute posthemorrhagic anemia; G47.00 Insomnia, unspecified; E78.5 Hyperlipidemia, unspecified; R31.0 Gross hematuria; N32.81 Overactive bladder; E11.649 Type 2 diabetes mellitus with hypoglycemia without coma; E11.319 Type 2 diabetes mellitus with unspecified diabetic retinopathy without macular edema; E11.42 Type 2 diabetes mellitus with diabetic polyneuropathy; G47.33 Obstructive sleep apnea (adult) (pediatric); R32 Unspecified urinary incontinence; E11.621 Type 2 diabetes mellitus with foot ulcer; N20.0 Calculus of kidney; L97.519 Non-pressure chronic ulcer of other part of right foot with unspecified severity; F32.A Depression, unspecified; M10.9 Gout, unspecified; E11.22 Type 2 diabetes mellitus with diabetic chronic kidney disease; Z79.899 Other long term (current) drug therapy; Z79.4 Long term (current) use of insulin; Z79.84 Long term (current) use of oral hypoglycemic drugs

== ENCOUNTER → 2025-01-06 | Outpatient (REF) | payer MEDICARE ==
[~2025-01-06] MED LIST changes: +COLA100C5 PO; +GABA-1172 PO; +JARD1TAB PO; +METO25TA PO; +SOLI10TA PO; +SPIR-10 PO
[2025-01-06 19:38] LABS: PTH INTACT 168.6 PG/ML (18.5-88.0)
== END ==
LOC: M LAB REF 16:57
PROVIDERS: ATTEND Internal Medicine
DX: N17.9 Acute kidney failure, unspecified (principal); I13.0 Hypertensive heart and chronic kidney disease with heart failure and stage 1 through stage 4 chronic kidney disease, or unspecified chronic kidney disease

== ENCOUNTER → 2025-03-09 | Outpatient (CLI) | payer MEDICARE | LOC: M WUC 14:15 | PROVIDERS: ATTEND Internal Medicine | DX: M46.92 Unspecified inflammatory spondylopathy, cervical region (principal); M17.11 Unilateral primary osteoarthritis, right knee ==

== ENCOUNTER → 2025-03-09 | Outpatient (REF) | payer MEDICARE | LOC: M LAB REF 17:25 | PROVIDERS: ATTEND Internal Medicine | DX: M25.561 Pain in right knee (principal) ==

== ENCOUNTER → 2025-05-23 | Outpatient (CLI) | payer MEDICARE ==
[~2025-05-23] MED LIST changes: +CALC1CAP31 PO; +INSU100V6 SQ; +NEUR300C PO; +TOUJ300I2 SQ; +TRUL0.5I; +VELP5CHW PO
== END ==
LOC: M WUC 11:21
PROVIDERS: ATTEND Urology
DX: Z01.818 Encounter for other preprocedural examination (principal); C67.9 Malignant neoplasm of bladder, unspecified

== ENCOUNTER → 2025-06-02 | Day surgery (SDC) | payer MEDICARE ==
[~2025-06-02] VITALS: Ht 198.1 cm; Wt 153.4 kg
[~2025-06-02] MED LIST changes: +ACETAMINOPHEN 1000MG/100ML IV BAG As Ordered ONE; +DEXTROSE 50% 50 ML SYRINGE IV PRN; +GLUCAGON INJ 1 MG VIAL SC PRN; +GLUCOSE 4 GM CHEW PO PRN; +HYDROMORPHONE HCL 0.5 MG/0.5 ML SYRINGE IV PRN; +LIDOCAINE 2% 100 MG/5 ML SDV (FOR ANES.) As Ordered ONE; +LR 1,000 ML IV SCH; +ONDANSETRON 4MG 2ML VIAL As Ordered ONE; +ONDANSETRON 4MG 2ML VIAL IV PRN; +PHENYLephrine 500MCG 5ML (100MCG/ML) SYRINGE As Ordered ONE
[2025-06-02] MEDS: INSULIN LISPRO (NovoLOG) PER UNIT SC PRN (07:22)
[2025-06-02] MEDS: ceFAZolin SOD 3 GM in DEXTROSE 5% (D5W) MINI-BAG PLU 1... IV ONE (07:29)
[2025-06-02] MEDS: MITOMYCIN 40MG IN 20ML SWFI SYRINGE INTRAVESIC ONE (08:10)
[2025-06-02 10:05] VITALS: BP 138/71; TEMP 97.4; O2SAT 99
== END | disposition home or self-care (01) ==
LOC: M SDC 06:04
PROVIDERS: ATTEND Urology
DX: C67.8 Malignant neoplasm of overlapping sites of bladder (principal); I12.0 Hypertensive chronic kidney disease with stage 5 chronic kidney disease or end stage renal disease; E11.22 Type 2 diabetes mellitus with diabetic chronic kidney disease; N18.6 End stage renal disease; E11.42 Type 2 diabetes mellitus with diabetic polyneuropathy; E78.00 Pure hypercholesterolemia, unspecified; G47.33 Obstructive sleep apnea (adult) (pediatric); Z79.899 Other long term (current) drug therapy; Z79.4 Long term (current) use of insulin; Z79.85 Long-term (current) use of injectable non-insulin antidiabetic drugs; Z99.2 Dependence on renal dialysis
CPT/HCPCS: 36415; 52235; 84132; 88305; J0131; J0690; J1815; J2371; J2405; J3010; J9280

== ENCOUNTER 2025-06-12 17:06 | Observation (INO) | payer OTHER, MEDICARE ==
[~2025-06-12] VITALS: Ht 198.1 cm; Wt 154.6 kg
[~2025-06-12 17:06] MED LIST changes: -ACETAMINOPHEN 1000MG/100ML IV BAG As Ordered ONE; -DEXTROSE 50% 50 ML SYRINGE IV PRN; -GLUCAGON INJ 1 MG VIAL SC PRN; -GLUCOSE 4 GM CHEW PO PRN; -HYDROMORPHONE HCL 0.5 MG/0.5 ML SYRINGE IV PRN; -LIDOCAINE 2% 100 MG/5 ML SDV (FOR ANES.) As Ordered ONE; -LR 1,000 ML IV SCH; -ONDANSETRON 4MG 2ML VIAL As Ordered ONE; -ONDANSETRON 4MG 2ML VIAL IV PRN; -PHENYLephrine 500MCG 5ML (100MCG/ML) SYRINGE As Ordered ONE
[2025-06-12 17:41] LABS: BASO # 0.0 10^3/uL (0.0-0.2); BASO % 0.3 % (0.0-1.0); EOS # 0.1 10^3/uL (0.0-0.5); EOS % 1.1 % (0.0-3.0); LYMPH # 0.7 10^3/uL (1.5-5.0); LYMPH % 5.8 % (24.0-44.0); MONO # 1.0 10^3/uL (0.0-0.8); MONO % 8.1 % (2.0-8.0); NEUTROPHILS # 10.6 10^3/uL (1.5-8.5); NEUTROPHILS % 84.1 % (36.0-66.0); PLATELET COUNT, AUTOMATED 125 10^3/uL (150-450)
[2025-06-12] MEDS: ONDANSETRON 4MG 2ML VIAL IV STA (17:56)
[2025-06-12 18:06] LABS: ALT/SGPT 12 U/L (7.0-40); AST/SGOT 23 U/L (<34); CALCIUM LEVEL 9.0 MG/DL (8.3-10.6); CARBON DIOXIDE LEVEL 28 MMOL/L (20-31); CHLORIDE LEVEL 98 MMOL/L (98-107); CREATININE FOR GFR 2.59 MG/DL (0.70-1.30); GLOMERULAR FILTRATION RATE 25.5 (>42); POTASSIUM SERUM 4.0 MMOL/L (3.5-5.1); SODIUM LEVEL 138 MMOL/L (136-145)
[2025-06-12 18:12] LABS: CK-MB VALUE MASS 1.9 NG/ML (<3.6)
[2025-06-12 18:13] LABS: CPK CREATINE PHOSPHOKINASE 100 U/L (46-171); MB/CK RELATIVE INDEX 1.90 (< OR =4)
[2025-06-12 18:21] LABS: VENOUS BASE EXCESS 5.8 (-2.0-2.0); VENOUS HCO3 29.8 MMOL/L (23.0-27.0); VENOUS O2 SATURATION 97.8 % (60.0-80.0); VENOUS PARTIAL PRESSURE CO2 40.7 mmHg (38.0-50.0); VENOUS PARTIAL PRESSURE O2 99.2 mmHg (30.0-50.0); VENOUS PH 7.482 UNITS (7.330-7.430); VENOUS STANDARD HCO3 29.8 MMOL/L; VENOUS TOTAL CO2 31.0 MMOL/L (24.0-28.0)
[2025-06-12 18:40] LABS: MAGNESIUM LEVEL 1.8 MG/DL (1.8-2.4)
[2025-06-12 18:49] LABS: INR 1.07
[2025-06-12 18:58] LABS: ETHYL ALCOHOL (ETHANOL) < 0.003 % (0.000-0.010)
[2025-06-12 19:24] LABS: CK-MB VALUE MASS 1.8 NG/ML (<3.6)
[2025-06-12 19:26] LABS: CPK CREATINE PHOSPHOKINASE 124.0 U/L (46-171); MB/CK RELATIVE INDEX 1.45 (< OR =4)
[2025-06-12] MEDS ORDERED: DULA3PEN INJ (20:55)
[2025-06-12] MEDS ORDERED: DULO30CA47 PO (20:55)
[2025-06-12] MEDS ORDERED: HOME MED LIST COMPLETE! XX SCH (21:00)
[2025-06-12] MEDS ORDERED: MOM 30 ML SUSPENSION UDC PO PRN (21:50)
[2025-06-12] MEDS ORDERED: DEXTROSE 50% 50 ML SYRINGE IV PRN (21:50)
[2025-06-12] MEDS ORDERED: GLUCAGON INJ 1 MG VIAL SC PRN (21:50)
[2025-06-12] MEDS ORDERED: GLUCOSE 4 GM CHEW PO PRN (21:50)
[2025-06-12 21:52] LABS: KETONE, URINE AUTO RFX NEGATIVE (NEGATIVE); NITRITE, URINE AUTO RFX NEGATIVE (NEGATIVE); RBC, URINE AUTO RFX TNTC /HPF (0-3); SQUAM EPITHELIAL CELL UR AURFX 2 /HPF (0-6)
[2025-06-12 22:00] LABS: LEUKOCYTE ESTERASE UR AUTO RFX 2+ (NEGATIVE); WBC, URINE AUTO RFX TNTC /HPF (0-3)
[2025-06-12 22:03] LABS: AMPHETAMINES LEVEL URINE NEGATIVE (NEGATIVE); BARBITURATES URINE NEGATIVE (NEGATIVE); BENZODIAZEPINES URINE NEGATIVE (NEGATIVE); CANNABINOIDS URINE NEGATIVE (NEGATIVE); COCAINE METABOLITE URINE NEGATIVE (NEGATIVE); METHADONE URINE NEGATIVE (NEGATIVE); OPIATES URINE NEGATIVE (NEGATIVE); PHENCYCLIDINE URINE NEGATIVE (NEGATIVE)
[2025-06-12] MEDS ORDERED: KETOROLAC 30 MG/ML 1 ML VIAL IV PRN (22:20)
[2025-06-12] MEDS: INSULIN LISPRO (NovoLOG) PER UNIT SC SCH (22:25)
[2025-06-12] MEDS: DOCUSATE SODIUM 100 MG CAPSULE PO SCH (22:28)
[2025-06-12] MEDS: ACETAMINOPHEN 325 MG TAB PO PRN (22:29)
[2025-06-12] MEDS: **hydrALAZINE HCL** 25 MG TAB PO SCH (22:29)
[2025-06-12] MEDS: HEPARIN SOD 5000 UNITS/ML 1 ML VIAL/SYRINGE SC SCH (22:30)
[2025-06-12 23:01] LABS: PLATELET COUNT, AUTOMATED 123 10^3/uL (150-450)
[2025-06-12] MEDS: CEFDINIR 300 MG CAP PO SCH (23:16)
[2025-06-12] MEDS: FAMOTIDINE IV BAG 20 MG in IV 1 EA IV SCH (23:16)
[2025-06-13 07:16] LABS: BASO # 0.0 10^3/uL (0.0-0.2); BASO % 0.3 % (0.0-1.0); EOS # 0.1 10^3/uL (0.0-0.5); EOS % 0.7 % (0.0-3.0); LYMPH # 0.8 10^3/uL (1.5-5.0); LYMPH % 6.5 % (24.0-44.0); MONO # 1.0 10^3/uL (0.0-0.8); MONO % 8.0 % (2.0-8.0); NEUTROPHILS # 10.0 10^3/uL (1.5-8.5); NEUTROPHILS % 84.0 % (36.0-66.0); PLATELET COUNT, AUTOMATED 117 10^3/uL (150-450)
[2025-06-13 07:50] LABS: ALT/SGPT 14.0 U/L (7.0-40); AST/SGOT 18.0 U/L (<34); CALCIUM LEVEL 8.7 MG/DL (8.3-10.6); CARBON DIOXIDE LEVEL 29.0 MMOL/L (20-31); CHLORIDE LEVEL 96.0 MMOL/L (98-107); CREATININE FOR GFR 3.6 MG/DL (0.70-1.30); GLOMERULAR FILTRATION RATE 17.2 (>42); MAGNESIUM LEVEL 2.1 MG/DL (1.8-2.4); POTASSIUM SERUM 4.1 MMOL/L (3.5-5.1); SODIUM LEVEL 137.0 MMOL/L (136-145)
[2025-06-13 09:02] VITALS: BP 146/67; TEMP 97.8; O2SAT 96
[2025-06-13] MEDS: INSULIN LISPRO (NovoLOG) PER UNIT SC SCH (09:22)
[2025-06-13 09:23] VITALS: BP 146/67
[2025-06-13] MEDS: GABAPENTIN 300 MG CAP PO SCH (09:23)
[2025-06-13] MEDS: amLODIPine 5 MG TAB PO SCH (09:24)
[2025-06-13] MEDS: ATORVASTATIN 10 MG TAB PO SCH (09:24)
[2025-06-13] MEDS ORDERED: ACET-683 PO (14:44)
[2025-06-13] MEDS ORDERED: CEFD300CAP PO (14:44)
[2025-06-13] MEDS ORDERED: OXYC-517 PO (14:48)
[2025-06-13] MEDS ORDERED: CEFDINIR 300 MG CAP PO SCH (16:00)
[2025-06-14] MEDS ORDERED: CALCITRIOL 0.25 MCG CAP (S0169) PO SCH (09:00)
[2025-06-14] MEDS ORDERED: CEFDINIR 300 MG CAP PO SCH (22:40)
[2025-06-18] MEDS ORDERED: CEFDINIR 300 MG CAP PO SCH (16:00)
== END 2025-06-13 14:09 | disposition home or self-care (01) ==
LOC: M ED 17:06 → M ED INP 17:07 → M MS4PR 06-13 08:44
PROVIDERS: ADMIT Student in an Organized Health Care Education/Training Program; ATTEND Student in an Organized Health Care Education/Training Program
DX: Z04.1 Encounter for examination and observation following transport accident (principal); S30.811A Abrasion of abdominal wall, initial encounter; W22.11XA Striking against or struck by driver side automobile airbag, initial encounter; V43.52XA Car driver injured in collision with other type car in traffic accident, initial encounter; Y92.410 Unspecified street and highway as the place of occurrence of the external cause; T83.511A Infection and inflammatory reaction due to indwelling urethral catheter, initial encounter; Y73.2 Prosthetic and other implants, materials and accessory gastroenterology and urology devices associated with adverse incidents; N13.30 Unspecified hydronephrosis; M47.812 Spondylosis without myelopathy or radiculopathy, cervical region; M85.9 Disorder of bone density and structure, unspecified; R11.2 Nausea with vomiting, unspecified; I12.0 Hypertensive chronic kidney disease with stage 5 chronic kidney disease or end stage renal disease; E78.5 Hyperlipidemia, unspecified; E11.42 Type 2 diabetes mellitus with diabetic polyneuropathy; E11.319 Type 2 diabetes mellitus with unspecified diabetic retinopathy without macular edema; G47.33 Obstructive sleep apnea (adult) (pediatric); N18.6 End stage renal disease; Z99.2 Dependence on renal dialysis; E11.22 Type 2 diabetes mellitus with diabetic chronic kidney disease; R32 Unspecified urinary incontinence; C67.8 Malignant neoplasm of overlapping sites of bladder; Z98.890 Other specified postprocedural states; Z87.442 Personal history of urinary calculi; M54.9 Dorsalgia, unspecified; G89.29 Other chronic pain; Z79.899 Other long term (current) drug therapy; Z79.2 Long term (current) use of antibiotics; Z79.4 Long term (current) use of insulin; Z79.85 Long-term (current) use of injectable non-insulin antidiabetic drugs
CPT/HCPCS: 36415; 51701; 70450; 71045; 71250; 72125; 74176; 80047; 80048; 80053; 80076; 80307; 81001; 82077; 82140; 82150; 82550; 82553; 82803; 83605; 83690; 83735; 84443; 84484; 85025; 85027; 85610; 85730; 86850; 86900; 86901; 87088; 87186; 87486; 87581; 87633; 87798; 93005; 93041; 94760; 96365; 96366; 96372; 96375; 96376; 97162; 99285; J1308; J1815; J2405

== ENCOUNTER 2025-07-12 16:18 | Inpatient (IN) | payer MEDICARE, OTHER ==
[~2025-07-12] VITALS: Ht 198.1 cm; Wt 148.3 kg
[~2025-07-12 16:18] MED LIST changes: +ACET-683 PO; -ASPI-655 PO; +ASPI-737 PO; +CEFD300CAP PO; +DULA3PEN INJ; +DULO30CA47 PO; +OXYC-517 PO
[2025-07-12 16:53] LABS: BASO # 0.0 10^3/uL (0.0-0.2); BASO % 0.3 % (0.0-1.0); EOS # 0.1 10^3/uL (0.0-0.5); EOS % 1.3 % (0.0-3.0); LYMPH # 0.6 10^3/uL (1.5-5.0); LYMPH % 6.9 % (24.0-44.0); MONO # 0.6 10^3/uL (0.0-0.8); MONO % 6.5 % (2.0-8.0); NEUTROPHILS # 7.8 10^3/uL (1.5-8.5); NEUTROPHILS % 84.6 % (36.0-66.0); PLATELET COUNT, AUTOMATED 124 10^3/uL (150-450)
[2025-07-12 17:22] LABS: CK-MB VALUE MASS 1.5 NG/ML (<3.6)
[2025-07-12 17:24] LABS: ALT/SGPT 86.0 U/L (7.0-40); AST/SGOT 60.0 U/L (<34); CALCIUM LEVEL 9.1 MG/DL (8.3-10.6); CARBON DIOXIDE LEVEL 29.0 MMOL/L (20-31); CHLORIDE LEVEL 95.0 MMOL/L (98-107); CPK CREATINE PHOSPHOKINASE 65.0 U/L (46-171); CREATININE FOR GFR 2.08 MG/DL (0.70-1.30); GLOMERULAR FILTRATION RATE 33.2 (>42); MB/CK RELATIVE INDEX 2.3 (< OR =4); POTASSIUM SERUM 3.3 MMOL/L (3.5-5.1); SODIUM LEVEL 139.0 MMOL/L (136-145)
[2025-07-12] MEDS: NS (Normal Saline) 0.9% 1,000 ML IV SCH (17:55)
[2025-07-12] MEDS: MORPHINE 2 MG/ML 1 ML VIAL IV ONE (18:09)
[2025-07-12] MEDS ORDERED: ISOVUE-370 76% 100 ML VIAL As Ordered ONE (18:18)
[2025-07-12] MEDS: NS 500 ML IV ONE (18:47)
[2025-07-12] MEDS: LanTUS (INSULIN GLARGINE INJ) 1 UNITS/0.01 ML SC SCH (21:00)
[2025-07-12] MEDS: INSULIN LISPRO (NovoLOG) PER UNIT SC SCH (21:00)
[2025-07-12 21:40] LABS: APPEARANCE, URINE TURBID (CLEAR); BACTERIA, URINE AUTO 2+ (NEGATIVE); BILIRUBIN, URINE AUTO NEGATIVE (NEGATIVE); BLOOD, URINE BLOOD 2+ (NEGATIVE); GLUCOSE, URINE (UA) AUTO 3+ mg/dL (NEGATIVE); KETONE, URINE AUTO 1+ mg/dL (NEGATIVE); LEUKOCYTE ESTERASE, URINE AUTO 3+ (NEGATIVE); NITRITE, URINE AUTO NEGATIVE (NEGATIVE); PROTEIN, URINE AUTO 3+ mg/dL (NEGATIVE); RBC, URINE AUTO 38 /HPF (0-3); SPECIFIC GRAVITY URINE AUTO 1.020 (1.002-1.035); SQUAMOUS EPITHELIAL CELL UR AU 0 /HPF (0-6); UROBILINOGEN, URINE AUTO 0.2 mg/dL (0.0-2.0); WBC, URINE AUTO TNTC /HPF (0-3)
[2025-07-12] MEDS: VANCOMYCIN HCL 2,000 MG, VIAL MATE ADAPTER 1 EACH in NS 500 ML IV ONE (21:46)
[2025-07-12] MEDS ORDERED: HOME MED LIST COMPLETE! XX SCH (22:20)
[2025-07-12] MEDS ORDERED: GLUCOSE 4 GM CHEW PO PRN (22:50)
[2025-07-12] MEDS ORDERED: ONDANSETRON 4MG 2ML VIAL IV PRN (22:50)
[2025-07-12] MEDS ORDERED: DEXTROSE 50% 50 ML SYRINGE IV PRN (22:50)
[2025-07-12] MEDS ORDERED: GLUCAGON INJ 1 MG VIAL SC PRN (22:50)
[2025-07-12] MEDS ORDERED: ACETAMINOPHEN 500 MG TAB PO PRN (22:50)
[2025-07-12] MEDS ORDERED: MOM 30 ML SUSPENSION UDC PO PRN (22:50)
[2025-07-12] MEDS ORDERED: MAALOX 30 ML SUSP *UDC PO PRN (22:50)
[2025-07-12] MEDS ORDERED: VANCOMYCIN HCL 1,000 MG, VIAL MATE ADAPTER 1 EACH in NS 250 ML IV SCH (23:20)
[2025-07-13 00:15] LABS: INR 1.07
[2025-07-13] MEDS: PIPERACILLIN/TAZOBACTAM SOD 4.5 GM in DEXTROSE 5% (D5W) ADV/MINI-BAG 50 ML IV SCH ×2 (00:43→18:18)
[2025-07-13] MEDS: NS (Normal Saline) 0.9% 1,000 ML IV ONE (00:43)
[2025-07-13 01:04] LABS: HEPATITIS C VIRUS ABY INDEX 0.02 INDEX (<0.8)
[2025-07-13 06:56] LABS: PLATELET COUNT, AUTOMATED 110 10^3/uL (150-450)
[2025-07-13 07:23] LABS: ALT/SGPT 61.0 U/L (7.0-40); AST/SGOT 36.0 U/L (<34); CALCIUM LEVEL 8.3 MG/DL (8.3-10.6); CARBON DIOXIDE LEVEL 31.0 MMOL/L (20-31); CHLORIDE LEVEL 99.0 MMOL/L (98-107); CREATININE FOR GFR 2.9 MG/DL (0.70-1.30); GLOMERULAR FILTRATION RATE 22.3 (>42); MAGNESIUM LEVEL 1.8 MG/DL (1.8-2.4); POTASSIUM SERUM 3.5 MMOL/L (3.5-5.1); SODIUM LEVEL 141.0 MMOL/L (136-145)
[2025-07-13] MEDS: INSULIN LISPRO (NovoLOG) PER UNIT SC SCH (07:30)
[2025-07-13] MEDS ORDERED: VANCOMYCIN HCL 1,500 MG, VIAL MATE ADAPTER 1 EACH in NS 500 ML IV SCH (09:00)
[2025-07-13] MEDS: ATORVASTATIN 10 MG TAB PO SCH (10:10)
[2025-07-13] MEDS: amLODIPine 5 MG TAB PO SCH (10:10)
[2025-07-13] MEDS: GABAPENTIN 300 MG CAP PO SCH (10:11)
[2025-07-13] MEDS: DOCUSATE SODIUM 100 MG CAPSULE PO SCH (10:11)
[2025-07-13] MEDS: HEPARIN SOD 5000 UNITS/ML 1 ML VIAL/SYRINGE SC SCH (10:12)
[2025-07-13 15:05] VITALS: BP 147/70; TEMP 97.2; O2SAT 94
[2025-07-13 15:42] VITALS: O2SAT 96
[2025-07-13 19:54] VITALS: BP 145/62; TEMP 97.7; O2SAT 92
[2025-07-13 20:40] VITALS: BP 141/72; TEMP 97.7; O2SAT 94
[2025-07-13] MEDS: CEFEPIME HCL 1 GM in DEXTROSE 5% (D5W) ADV/MINI-BAG 50 ML IV SCH (22:30)
[2025-07-14] VITALS (7 sets, daily range): BP systolic 147–175; BP diastolic 73–94; TEMP 97–97.9; O2SAT 92–97
[2025-07-14] MEDS ORDERED: SODIUM CHLORIDE 0.9% 1000 ML IV PRN (06:00)
[2025-07-14] MEDS ORDERED: HEPARIN 1,000 UNITS/ML 10 ML VIAL (FOR RADIOLOGY & DIALYSIS ONLY) IV PRN (06:00)
[2025-07-14] MEDS: CALCITRIOL 0.25 MCG CAP (S0169) PO SCH (08:07)
[2025-07-14] MEDS: FLUZONE HIGH DOSE TRI (25-26) 0.5 ML SYRINGE IM.IMMUN ONE (09:00)
[2025-07-14] MEDS: HEPARIN 1,000 UNITS/ML 10 ML VIAL (FOR RADIOLOGY & DIALYSIS ONLY) XX SCH (14:41)
[2025-07-14] MEDS: DARBEPOETIN 100 MCG/0.5 ML *DIALYSIS* SYRINGE IV SCH (15:01)
[2025-07-14] MEDS: CEFEPIME HCL 1 GM in DEXTROSE 5% (D5W) ADV/MINI-BAG 50 ML IV SCH (17:20)
[2025-07-14] MEDS: VANCOMYCIN HCL 1,000 MG, VIAL MATE ADAPTER 1 EACH in NS 250 ML IV SCH (18:11)
[2025-07-15 00:09] VITALS: BP 144/70; TEMP 97.9; O2SAT 97
[2025-07-15 04:15] VITALS: BP 166/97; TEMP 97.2; O2SAT 97
[2025-07-15 08:00] VITALS: BP 159/99; TEMP 97.7; O2SAT 96
[2025-07-15 09:09] LABS: CALCIUM LEVEL 8.9 MG/DL (8.3-10.6); CARBON DIOXIDE LEVEL 26.0 MMOL/L (20-31); CHLORIDE LEVEL 104.0 MMOL/L (98-107); CREATININE FOR GFR 2.9 MG/DL (0.70-1.30); GLOMERULAR FILTRATION RATE 22.3 (>42); MAGNESIUM LEVEL 1.8 MG/DL (1.8-2.4); POTASSIUM SERUM 3.6 MMOL/L (3.5-5.1); SODIUM LEVEL 134.0 MMOL/L (136-145)
[2025-07-15 12:00] VITALS: BP 163/88; TEMP 97.3; O2SAT 97
[2025-07-15] MEDS: VANCOMYCIN HCL 500 MG in DEXTROSE 5% (D5W) MINI-BAG PLU 100 ML IV ONE (12:12)
[2025-07-15 16:00] VITALS: BP 154/81; TEMP 97.9; O2SAT 96
[2025-07-15 20:02] VITALS: BP 137/74; TEMP 97.7; O2SAT 96
[2025-07-16] VITALS: BP 145/77; TEMP 97.3; O2SAT 98
[2025-07-16 05:12] VITALS: BP 163/93; TEMP 97.3; O2SAT 96
[2025-07-16 08:00] VITALS: BP 168/92; TEMP 97.3; O2SAT 98
[2025-07-16 08:56] LABS: CALCIUM LEVEL 9.2 MG/DL (8.3-10.6); CARBON DIOXIDE LEVEL 26.0 MMOL/L (20-31); CHLORIDE LEVEL 103.0 MMOL/L (98-107); CREATININE FOR GFR 3.13 MG/DL (0.70-1.30); GLOMERULAR FILTRATION RATE 20.3 (>42); MAGNESIUM LEVEL 1.8 MG/DL (1.8-2.4); POTASSIUM SERUM 3.9 MMOL/L (3.5-5.1); SODIUM LEVEL 141.0 MMOL/L (136-145)
[2025-07-16 12:00] VITALS: BP 152/78; TEMP 97.3; O2SAT 97
[2025-07-16 16:00] VITALS: BP 164/81; TEMP 97.5; O2SAT 97
[2025-07-16 20:27] VITALS: BP 134/64; TEMP 97.3; O2SAT 98
[2025-07-17] VITALS: BP 160/83; TEMP 97.3; O2SAT 97
[2025-07-17 03:46] VITALS: BP 141/66; TEMP 97.5; O2SAT 97
[2025-07-17] MEDS ORDERED: HEPARIN 1,000 UNITS/ML 10 ML VIAL (FOR RADIOLOGY & DIALYSIS ONLY) IV PRN (06:00)
[2025-07-17] MEDS ORDERED: SODIUM CHLORIDE 0.9% 1000 ML IV PRN (06:00)
[2025-07-17 06:59] LABS: CALCIUM LEVEL 8.9 MG/DL (8.3-10.6); CARBON DIOXIDE LEVEL 25.0 MMOL/L (20-31); CHLORIDE LEVEL 104.0 MMOL/L (98-107); CREATININE FOR GFR 3.27 MG/DL (0.70-1.30); GLOMERULAR FILTRATION RATE 19.3 (>42); MAGNESIUM LEVEL 1.8 MG/DL (1.8-2.4); POTASSIUM SERUM 3.7 MMOL/L (3.5-5.1); SODIUM LEVEL 140.0 MMOL/L (136-145)
[2025-07-17 08:00] VITALS: BP 148/57; TEMP 97; O2SAT 96
[2025-07-17] MEDS ORDERED: VANCOMYCIN HCL 500 MG in DEXTROSE 5% (D5W) MINI-BAG PLU 100 ML IV ONE (09:00)
[2025-07-17 09:38] VITALS: BP 131/73
[2025-07-17 12:00] VITALS: BP 170/90; TEMP 97.8; O2SAT 95
[2025-07-17] MEDS ORDERED: LEVO1TAB38 PO (12:50)
[2025-07-17] MEDS: HEPARIN 1,000 UNITS/ML 10 ML VIAL (FOR RADIOLOGY & DIALYSIS ONLY) XX SCH (15:49)
== END 2025-07-17 17:43 | disposition home health service (06) | DRG 871 ==
LOC: EDBD 16:18 → M ED 16:18 → M ED INP 22:46 → M MSPAV 07-13 15:10
PROVIDERS: ADMIT Student in an Organized Health Care Education/Training Program; ATTEND Student in an Organized Health Care Education/Training Program
PROC: 5A1D70Z Performance of Urinary Filtration, Intermittent, Less than 6 Hours Per Day (ICD-10-PCS; principal; 2025-07-14)
DX: A41.89 Other specified sepsis (principal); N18.6 End stage renal disease; I12.0 Hypertensive chronic kidney disease with stage 5 chronic kidney disease or end stage renal disease; N13.6 Pyonephrosis; E11.22 Type 2 diabetes mellitus with diabetic chronic kidney disease; E11.40 Type 2 diabetes mellitus with diabetic neuropathy, unspecified; E11.319 Type 2 diabetes mellitus with unspecified diabetic retinopathy without macular edema; G47.33 Obstructive sleep apnea (adult) (pediatric); R11.2 Nausea with vomiting, unspecified; R74.01 Elevation of levels of liver transaminase levels; D63.1 Anemia in chronic kidney disease; E66.01 Morbid (severe) obesity due to excess calories; E78.5 Hyperlipidemia, unspecified; R41.82 Altered mental status, unspecified; R53.1 Weakness; Z79.4 Long term (current) use of insulin; Z79.899 Other long term (current) drug therapy; Z99.2 Dependence on renal dialysis; Z85.49 Personal history of malignant neoplasm of other male genital organs

== ENCOUNTER 2025-09-01 18:01 | Observation (INO) | payer MEDICARE ==
[~2025-09-01] VITALS: Ht 198.1 cm; Wt 164.4 kg
[~2025-09-01 18:01] MED LIST changes: +LEVO1TAB38 PO; +LEVO1TAB39 PO
[2025-09-01 18:43] LABS: BASO # 0.0 10^3/uL (0.0-0.2); BASO % 0.4 % (0.0-1.0); EOS # 0.2 10^3/uL (0.0-0.5); EOS % 1.7 % (0.0-3.0); LYMPH # 0.4 10^3/uL (1.5-5.0); LYMPH % 3.9 % (24.0-44.0); MONO # 0.7 10^3/uL (0.0-0.8); MONO % 7.1 % (2.0-8.0); NEUTROPHILS # 8.5 10^3/uL (1.5-8.5); NEUTROPHILS % 86.4 % (36.0-66.0)
[2025-09-01 18:44] LABS: VENOUS BASE EXCESS 3.2 (-2.0-2.0); VENOUS HCO3 24.7 MMOL/L (23.0-27.0); VENOUS O2 SATURATION 93.9 % (60.0-80.0); VENOUS PARTIAL PRESSURE CO2 28.6 mmHg (38.0-50.0); VENOUS PARTIAL PRESSURE O2 65.4 mmHg (30.0-50.0); VENOUS PH 7.554 UNITS (7.330-7.430); VENOUS STANDARD HCO3 27.3 MMOL/L; VENOUS TOTAL CO2 25.6 MMOL/L (24.0-28.0)
[2025-09-01 18:48] LABS: PLATELET COUNT, AUTOMATED 85 10^3/uL (150-450)
[2025-09-01 19:12] LABS: ALT/SGPT 48.0 U/L (7.0-40); AST/SGOT 72.0 U/L (<34); CALCIUM LEVEL 8.7 MG/DL (8.3-10.6); CARBON DIOXIDE LEVEL 24.0 MMOL/L (20-31); CHLORIDE LEVEL 96.0 MMOL/L (98-107); CK-MB VALUE MASS 1.2 NG/ML (<3.6); CPK CREATINE PHOSPHOKINASE 60.0 U/L (46-171); CREATININE FOR GFR 2.69 MG/DL (0.70-1.30); GLOMERULAR FILTRATION RATE 24.4 (>42); MB/CK RELATIVE INDEX 2.0 (< OR =4); POTASSIUM SERUM 3.7 MMOL/L (3.5-5.1); SODIUM LEVEL 133.0 MMOL/L (136-145)
[2025-09-01] MEDS: ONDANSETRON 4MG/2ML VIAL IV ONE (19:27)
[2025-09-01] MEDS: ACETAMINOPHEN 325 MG TAB PO ONE (19:28)
[2025-09-01] MEDS: PIPERACILLIN/TAZOBACTAM SOD 4.5 GM in DEXTROSE 5% (D5W) ADV/MINI-BAG 50 ML IV ONE (19:28)
[2025-09-01 20:31] LABS: CK-MB VALUE MASS 1.1 NG/ML (<3.6)
[2025-09-01 20:35] LABS: CPK CREATINE PHOSPHOKINASE 59.0 U/L (46-171); MB/CK RELATIVE INDEX 1.86 (< OR =4)
[2025-09-01 20:37] LABS: INR 1.0
[2025-09-01] MEDS: VANCOMYCIN HCL 1,000 MG, VIAL MATE ADAPTER 1 EACH in NS 250 ML IV ONE (20:50)
[2025-09-01] MEDS ORDERED: HOME MED LIST COMPLETE! XX SCH (21:25)
[2025-09-01] MEDS ORDERED: HEPARIN SOD 5000 UNITS/ML 1 ML VIAL/SYRINGE SC SCH (23:15)
[2025-09-02] MEDS: cefTRIAXone SOD 1 GM in DEXTROSE 5% (D5W) ADV/MINI-BAG 50 ML IV SCH (00:14)
[2025-09-02] MEDS: GABAPENTIN 300 MG CAP PO SCH (00:14)
[2025-09-02] MEDS: NS (Normal Saline) 0.9% 1,000 ML IV SCH (00:15)
[2025-09-02 01:53] VITALS: BP 137/74; TEMP 97.1; O2SAT 95
[2025-09-02] MEDS: NS (Normal Saline) 0.9% 1,000 ML IV ONE (02:20)
[2025-09-02] MEDS: ACETAMINOPHEN 325 MG TAB PO PRN (02:33)
[2025-09-02] MEDS ORDERED: GLUCAGON INJ 1 MG VIAL SC PRN (03:40)
[2025-09-02] MEDS ORDERED: GLUCOSE 4 GM CHEW PO PRN (03:40)
[2025-09-02] MEDS ORDERED: DEXTROSE 50% 50 ML SYRINGE IV PRN (03:40)
[2025-09-02 05:58] LABS: PLATELET COUNT, AUTOMATED 94 10^3/uL (150-450)
[2025-09-02 06:18] LABS: CALCIUM LEVEL 8.1 MG/DL (8.3-10.6); CARBON DIOXIDE LEVEL 31.0 MMOL/L (20-31); CHLORIDE LEVEL 96.0 MMOL/L (98-107); CREATININE FOR GFR 3.46 MG/DL (0.70-1.30); GLOMERULAR FILTRATION RATE 18.0 (>42); MAGNESIUM LEVEL 1.8 MG/DL (1.8-2.4); POTASSIUM SERUM 3.8 MMOL/L (3.5-5.1); SODIUM LEVEL 137.0 MMOL/L (136-145)
[2025-09-02 07:51] VITALS: BP 150/78; TEMP 97; O2SAT 97
[2025-09-02] MEDS: TAMSULOSIN 0.4 MG CAP PO SCH (10:10)
[2025-09-02] MEDS: amLODIPine 5 MG TAB PO SCH (10:11)
[2025-09-02] MEDS: ATORVASTATIN 10 MG TAB PO SCH (10:11)
[2025-09-02] MEDS: INSULIN LISPRO (NovoLOG) PER UNIT SC SCH (10:12)
[2025-09-02 12:02] VITALS: BP 125/72; TEMP 97.5; O2SAT 98
[2025-09-02 15:43] VITALS: BP 122/72; TEMP 97; O2SAT 99
[2025-09-02 17:17] LABS: KETONE, URINE AUTO RFX NEGATIVE (NEGATIVE); LEUKOCYTE ESTERASE UR AUTO RFX NEGATIVE (NEGATIVE); NITRITE, URINE AUTO RFX NEGATIVE (NEGATIVE); RBC, URINE AUTO RFX 3 /HPF (0-3); SQUAM EPITHELIAL CELL UR AURFX 0 /HPF (0-6); WBC, URINE AUTO RFX 2 /HPF (0-3)
[2025-09-02 20:09] VITALS: BP 120/66; TEMP 97.7; O2SAT 98
[2025-09-03 03:47] VITALS: BP 118/63; TEMP 97.2; O2SAT 99
[2025-09-03 05:46] LABS: PLATELET COUNT, AUTOMATED 83 10^3/uL (150-450)
[2025-09-03 06:13] LABS: CALCIUM LEVEL 7.8 MG/DL (8.3-10.6); CARBON DIOXIDE LEVEL 28.0 MMOL/L (20-31); CHLORIDE LEVEL 97.0 MMOL/L (98-107); CREATININE FOR GFR 3.84 MG/DL (0.70-1.30); GLOMERULAR FILTRATION RATE 15.9 (>42); MAGNESIUM LEVEL 1.9 MG/DL (1.8-2.4); PHOSPHORUS LEVEL 3.5 MG/DL (2.4-5.1); POTASSIUM SERUM 3.7 MMOL/L (3.5-5.1); SODIUM LEVEL 135.0 MMOL/L (136-145)
[2025-09-03 07:41] VITALS: BP 144/75; TEMP 96.1; O2SAT 97
[2025-09-03 08:17] VITALS: BP 144/75
[2025-09-03] MEDS ORDERED: CEFD1CAP9 PO (10:16)
== END 2025-09-03 12:16 | disposition home or self-care (01) ==
LOC: M ED 18:01 → EDBD 18:01 → M ED INP 18:02 → M PCU 09-02 01:47
PROVIDERS: ADMIT Student in an Organized Health Care Education/Training Program; ATTEND Student in an Organized Health Care Education/Training Program
DX: A41.9 Sepsis, unspecified organism (principal); N39.0 Urinary tract infection, site not specified; N18.6 End stage renal disease; N20.0 Calculus of kidney; I12.0 Hypertensive chronic kidney disease with stage 5 chronic kidney disease or end stage renal disease; E78.5 Hyperlipidemia, unspecified; E11.22 Type 2 diabetes mellitus with diabetic chronic kidney disease; E11.42 Type 2 diabetes mellitus with diabetic polyneuropathy; E11.319 Type 2 diabetes mellitus with unspecified diabetic retinopathy without macular edema; G47.33 Obstructive sleep apnea (adult) (pediatric); Z85.54 Personal history of malignant neoplasm of ureter; Z79.4 Long term (current) use of insulin; Z79.899 Other long term (current) drug therapy; Z99.2 Dependence on renal dialysis; J01.30 Acute sphenoidal sinusitis, unspecified; D64.9 Anemia, unspecified
CPT/HCPCS: 36415; 51701; 70450; 71045; 74176; 80047; 80048; 80069; 81001; 82248; 82550; 82553; 82803; 83605; 83690; 83735; 84484; 85025; 85027; 85049; 85055; 85610; 85730; 87040; 87486; 87581; 87633; 87798; 93005; 93041; 94760; 96365; 96366; 96367; 96375; 97161; 97530; 99285; G0378; J0696; J1815; J2405; J2543; J3373

== ENCOUNTER 2025-09-11 15:58 | Inpatient (IN) | payer MEDICARE ==
[~2025-09-11] VITALS: Ht 193 cm; Wt 152.4 kg
[~2025-09-11 15:58] MED LIST changes: +CEFD1CAP9 PO
[2025-09-11 16:41] LABS: VENOUS BASE EXCESS 3.0 (-2.0-2.0); VENOUS HCO3 25.4 MMOL/L (23.0-27.0); VENOUS O2 SATURATION 98.1 % (60.0-80.0); VENOUS PARTIAL PRESSURE CO2 32.3 mmHg (38.0-50.0); VENOUS PARTIAL PRESSURE O2 119.1 mmHg (30.0-50.0); VENOUS PH 7.514 UNITS (7.330-7.430); VENOUS STANDARD HCO3 27.1 MMOL/L; VENOUS TOTAL CO2 26.4 MMOL/L (24.0-28.0)
[2025-09-11 16:55] LABS: BASO # 0.1 10^3/uL (0.0-0.2); BASO % 0.3 % (0.0-1.0); EOS # 0.1 10^3/uL (0.0-0.5); EOS % 0.8 % (0.0-3.0); LYMPH # 0.6 10^3/uL (1.5-5.0); LYMPH % 3.8 % (24.0-44.0); MONO # 0.2 10^3/uL (0.0-0.8); MONO % 1.3 % (2.0-8.0); NEUTROPHILS # 14.7 10^3/uL (1.5-8.5); NEUTROPHILS % 93.2 % (36.0-66.0); PLATELET COUNT, AUTOMATED 101 10^3/uL (150-450)
[2025-09-11 17:12] LABS: ETHYL ALCOHOL (ETHANOL) < 0.003 % (0.000-0.010)
[2025-09-11 17:13] LABS: SALICYLATE LEVEL < 3.0 MG/DL (<30)
[2025-09-11 17:14] LABS: ALT/SGPT 39 U/L (7.0-40); AST/SGOT 56 U/L (<34); CALCIUM LEVEL 8.7 MG/DL (8.3-10.6); CARBON DIOXIDE LEVEL 26 MMOL/L (20-31); CHLORIDE LEVEL 98 MMOL/L (98-107); CREATININE FOR GFR 2.14 MG/DL (0.70-1.30); GLOMERULAR FILTRATION RATE 32.1 (>42); POTASSIUM SERUM 3.6 MMOL/L (3.5-5.1); SODIUM LEVEL 138 MMOL/L (136-145)
[2025-09-11 17:38] LABS: OSMOLALITY SERUM 300 MOSM/KG (280-301)
[2025-09-11] MEDS ORDERED: ISOVUE-370 76% 100 ML VIAL As Ordered ONE (17:45)
[2025-09-11] MEDS ORDERED: HOME MED LIST COMPLETE! XX SCH (18:35)
[2025-09-11] MEDS: NS (Normal Saline) 0.9% 1,000 ML IV SCH (18:35)
[2025-09-11] MEDS: LIDOCAINE 2% 5 ML JELLY UROJET TOP ONE (18:46)
[2025-09-11 19:18] LABS: KETONE, URINE AUTO RFX NEGATIVE (NEGATIVE); LEUKOCYTE ESTERASE UR AUTO RFX NEGATIVE (NEGATIVE); NITRITE, URINE AUTO RFX NEGATIVE (NEGATIVE); RBC, URINE AUTO RFX 0 /HPF (0-3); SQUAM EPITHELIAL CELL UR AURFX 2 /HPF (0-6); WBC, URINE AUTO RFX 7 /HPF (0-3)
[2025-09-11 19:38] LABS: BARBITURATES URINE NEGATIVE (NEGATIVE); COCAINE METABOLITE URINE NEGATIVE (NEGATIVE); METHADONE URINE NEGATIVE (NEGATIVE); OPIATES URINE NEGATIVE (NEGATIVE); PHENCYCLIDINE URINE NEGATIVE (NEGATIVE)
[2025-09-11 19:39] LABS: AMPHETAMINES LEVEL URINE NEGATIVE (NEGATIVE); BENZODIAZEPINES URINE NEGATIVE (NEGATIVE); CANNABINOIDS URINE NEGATIVE (NEGATIVE)
[2025-09-11] MEDS ORDERED: INSULIN LISPRO (NovoLOG) PER UNIT SQ SCH (21:00)
[2025-09-11] MEDS ORDERED: GLUCAGON INJ 1 MG VIAL SC PRN (22:35)
[2025-09-11] MEDS ORDERED: DEXTROSE 50% 50 ML SYRINGE IV PRN (22:35)
[2025-09-11] MEDS ORDERED: GLUCOSE 4 GM CHEW PO PRN (22:35)
[2025-09-11] MEDS ORDERED: MOM 30 ML SUSPENSION UDC PO PRN (22:35)
[2025-09-12 06:59] LABS: PLATELET COUNT, AUTOMATED 95 10^3/uL (150-450)
[2025-09-12 07:21] LABS: ALT/SGPT 38 U/L (7.0-40); AST/SGOT 35 U/L (<34); CALCIUM LEVEL 8.0 MG/DL (8.3-10.6); CARBON DIOXIDE LEVEL 28 MMOL/L (20-31); CHLORIDE LEVEL 98 MMOL/L (98-107); CREATININE FOR GFR 3.17 MG/DL (0.70-1.30); GLOMERULAR FILTRATION RATE 20.0 (>42); MAGNESIUM LEVEL 1.8 MG/DL (1.8-2.4); POTASSIUM SERUM 3.8 MMOL/L (3.5-5.1); SODIUM LEVEL 137 MMOL/L (136-145)
[2025-09-12] MEDS: INSULIN LISPRO (NovoLOG) PER UNIT SQ SCH (08:38)
[2025-09-12] MEDS: PANTOPRAZOLE 40MG TAB PO SCH (08:38)
[2025-09-12] MEDS: amLODIPine 5 MG TAB PO SCH (08:42)
[2025-09-12] MEDS: INSULIN LISPRO (NovoLOG) PER UNIT SC SCH (09:07)
[2025-09-12] MEDS: AUGMENTIN 500 MG TAB PO SCH (09:30)
[2025-09-12] MEDS: DOXYCYCLINE HYCLATE 100 MG TABLET PO SCH (09:30)
[2025-09-12 14:15] VITALS: BP 134/71; TEMP 97.8; O2SAT 98
[2025-09-12] MEDS ORDERED: PIPERACILLIN/TAZOBACTAM SOD 3.375 GM in DEXTROSE 5% (D5W) ADV/MINI-BAG 50 ML IV SCH (16:00)
[2025-09-12] MEDS: MEROPENEM 1 GM in IV 1 EA IV SCH (17:27)
[2025-09-12] MEDS: ACETAMINOPHEN 325 MG TAB PO PRN (20:50)
[2025-09-12 21:12] VITALS: BP 134/61; TEMP 98.2; O2SAT 94
[2025-09-13] VITALS (7 sets, daily range): BP systolic 107–171; BP diastolic 58–81; TEMP 97.6–98.4; O2SAT 96–99
[2025-09-13] MEDS ORDERED: SODIUM CHLORIDE 0.9% 1000 ML IV PRN (06:00)
[2025-09-13 09:23] LABS: PLATELET COUNT, AUTOMATED 92 10^3/uL (150-450)
[2025-09-13 09:52] LABS: CALCIUM LEVEL 8.1 MG/DL (8.3-10.6); CARBON DIOXIDE LEVEL 28.0 MMOL/L (20-31); CHLORIDE LEVEL 98.0 MMOL/L (98-107); CREATININE FOR GFR 3.77 MG/DL (0.70-1.30); GLOMERULAR FILTRATION RATE 16.3 (>42); POTASSIUM SERUM 3.6 MMOL/L (3.5-5.1); SODIUM LEVEL 136.0 MMOL/L (136-145)
[2025-09-13] MEDS ORDERED: ceFAZolin SODIUM 2 GM in DEXTROSE 5% (D5W) ADV/MINI-BAG 50 ML IV ONE (10:20)
[2025-09-13] MEDS ORDERED: MIDAZOLAM INJ 2 MG/2 ML VIAL IV PRN (10:20)
[2025-09-13] MEDS: NS (Normal Saline) 0.9% 1,000 ML IV SCH (10:20)
[2025-09-13] MEDS: HEPARIN 1,000 UNITS/ML 10 ML VIAL (FOR RADIOLOGY & DIALYSIS ONLY) IV PRN ×2 (11:00→12:42)
[2025-09-13] MEDS: ISOVUE-300 61% 100 ML VIAL IV STA (11:04)
[2025-09-13] MEDS: LIDOCAINE 1% MDV 20 ML VIAL SC SCH (11:04)
[2025-09-13] MEDS: HEPARIN 1,000 UNITS/ML 10 ML VIAL (FOR RADIOLOGY & DIALYSIS ONLY) XX SCH (12:41)
[2025-09-13] MEDS: ONDANSETRON 4MG/2ML VIAL IV PRN (17:24)
[2025-09-14 00:49] VITALS: BP 118/63; TEMP 98.2; O2SAT 98
[2025-09-14 05:54] LABS: PLATELET COUNT, AUTOMATED 101 10^3/uL (150-450)
[2025-09-14 06:18] LABS: CALCIUM LEVEL 8.4 MG/DL (8.3-10.6); CARBON DIOXIDE LEVEL 28.0 MMOL/L (20-31); CHLORIDE LEVEL 96.0 MMOL/L (98-107); CREATININE FOR GFR 3.4 MG/DL (0.70-1.30); GLOMERULAR FILTRATION RATE 18.4 (>42); POTASSIUM SERUM 3.6 MMOL/L (3.5-5.1); SODIUM LEVEL 135.0 MMOL/L (136-145)
[2025-09-14 06:22] VITALS: BP 148/74; TEMP 97.9; O2SAT 100
[2025-09-14 10:00] VITALS: BP 119/57; TEMP 97.3; O2SAT 95
[2025-09-14 14:00] VITALS: BP 125/75; TEMP 98.2; O2SAT 99
[2025-09-14 18:00] VITALS: BP 155/74; TEMP 98.3; O2SAT 98
[2025-09-14] MEDS: SENNA 8.6 MG TAB PO SCH (20:37)
[2025-09-14] MEDS: MIRALAX *UNIT DOSE* 17 GM PACKET PO SCH (20:37)
[2025-09-14 20:39] VITALS: BP 120/65; TEMP 98.1; O2SAT 99
[2025-09-15 00:44] VITALS: BP 111/65; TEMP 98.3; O2SAT 97
[2025-09-15 05:58] LABS: PLATELET COUNT, AUTOMATED 101 10^3/uL (150-450)
[2025-09-15] MEDS ORDERED: SODIUM CHLORIDE 0.9% 1000 ML IV PRN (06:00)
[2025-09-15 06:27] LABS: CALCIUM LEVEL 8.6 MG/DL (8.3-10.6); CARBON DIOXIDE LEVEL 28.0 MMOL/L (20-31); CHLORIDE LEVEL 97.0 MMOL/L (98-107); CREATININE FOR GFR 5.02 MG/DL (0.70-1.30); GLOMERULAR FILTRATION RATE 11.5 (>42); POTASSIUM SERUM 3.7 MMOL/L (3.5-5.1); SODIUM LEVEL 136.0 MMOL/L (136-145)
[2025-09-15 06:33] VITALS: BP 175/84; TEMP 98.1; O2SAT 98
[2025-09-15] MEDS: HEPARIN 1,000 UNITS/ML 10 ML VIAL (FOR RADIOLOGY & DIALYSIS ONLY) IV PRN (09:18)
[2025-09-15] MEDS: HEPARIN 1,000 UNITS/ML 10 ML VIAL (FOR RADIOLOGY & DIALYSIS ONLY) XX SCH (09:18)
[2025-09-15 14:01] VITALS: BP 121/69; TEMP 97.3; O2SAT 98
[2025-09-15] MEDS: MEROPENEM 2 GM, VIAL MATE ADAPTER 1 EACH in NS 100 ML IV ONE (17:28)
[2025-09-15 18:43] VITALS: BP 127/77; TEMP 97.6; O2SAT 100
[2025-09-15 20:23] VITALS: BP 128/62; TEMP 98.1; O2SAT 95
[2025-09-16 00:33] VITALS: BP 119/69; TEMP 97.5; O2SAT 97
[2025-09-16 05:39] VITALS: BP 123/66; TEMP 97.9; O2SAT 98
[2025-09-16 06:34] LABS: PLATELET COUNT, AUTOMATED 95 10^3/uL (150-450)
[2025-09-16 06:54] LABS: CALCIUM LEVEL 8.7 MG/DL (8.3-10.6); CARBON DIOXIDE LEVEL 25.0 MMOL/L (20-31); CHLORIDE LEVEL 96.0 MMOL/L (98-107); CREATININE FOR GFR 4.6 MG/DL (0.70-1.30); GLOMERULAR FILTRATION RATE 12.8 (>42); POTASSIUM SERUM 3.4 MMOL/L (3.5-5.1); SODIUM LEVEL 136.0 MMOL/L (136-145)
[2025-09-16] MEDS ORDERED: CEFEPIME HCL 1 GM in DEXTROSE 5% (D5W) ADV/MINI-BAG 50 ML IV ONE (08:15)
[2025-09-16 08:28] VITALS: BP 121/69; TEMP 97.2; O2SAT 100
[2025-09-16 10:00] VITALS: BP 142/75; TEMP 98.3; O2SAT 100
== END 2025-09-16 11:39 | disposition home or self-care (01) | DRG 314 ==
LOC: M ED 15:58 → M ED INP 15:59 → OBSVTOIN 09-12 11:39 → M MS5PR 09-12 14:09
PROVIDERS: ADMIT Internal Medicine; ATTEND Student in an Organized Health Care Education/Training Program
PROC: 02H633Z Insertion of Infusion Device into Right Atrium, Percutaneous Approach (ICD-10-PCS; 2025-09-13)
PROC: 05PY33Z Removal of Infusion Device from Upper Vein, Percutaneous Approach (ICD-10-PCS; 2025-09-13)
PROC: B246ZZZ Ultrasonography of Right and Left Heart (ICD-10-PCS; principal; 2025-09-14)
DX: T82.7XXA Infection and inflammatory reaction due to other cardiac and vascular devices, implants and grafts, initial encounter (principal); N18.6 End stage renal disease; A41.9 Sepsis, unspecified organism; E87.20 Acidosis, unspecified; I12.0 Hypertensive chronic kidney disease with stage 5 chronic kidney disease or end stage renal disease; Y83.1 Surgical operation with implant of artificial internal device as the cause of abnormal reaction of the patient, or of later complication, without mention of misadventure at the time of the procedure; E11.22 Type 2 diabetes mellitus with diabetic chronic kidney disease; E78.5 Hyperlipidemia, unspecified; E11.42 Type 2 diabetes mellitus with diabetic polyneuropathy; E11.319 Type 2 diabetes mellitus with unspecified diabetic retinopathy without macular edema; G47.33 Obstructive sleep apnea (adult) (pediatric); D63.1 Anemia in chronic kidney disease; D69.6 Thrombocytopenia, unspecified; F39 Unspecified mood [affective] disorder; E66.9 Obesity, unspecified; R41.82 Altered mental status, unspecified; I35.0 Nonrheumatic aortic (valve) stenosis; B96.89 Other specified bacterial agents as the cause of diseases classified elsewhere; Z99.2 Dependence on renal dialysis; Z79.4 Long term (current) use of insulin; Z79.899 Other long term (current) drug therapy

== ENCOUNTER → 2025-10-10 | Outpatient (CLI) | payer MEDICARE ==
[2025-10-10 13:44] LABS: BASO # 0.1 10^3/uL (0.0-0.2); BASO % 0.9 % (0.0-1.0); EOS # 0.7 10^3/uL (0.0-0.5); EOS % 11.2 % (0.0-3.0); LYMPH # 1.5 10^3/uL (1.5-5.0); LYMPH % 22.9 % (24.0-44.0); MONO # 0.6 10^3/uL (0.0-0.8); MONO % 8.9 % (2.0-8.0); NEUTROPHILS # 3.7 10^3/uL (1.5-8.5); NEUTROPHILS % 55.8 % (36.0-66.0)
[2025-10-10 13:52] LABS: ALT/SGPT 21.0 U/L (7.0-40); AST/SGOT 22.0 U/L (<34); CALCIUM LEVEL 8.9 MG/DL (8.3-10.6); CARBON DIOXIDE LEVEL 31.0 MMOL/L (20-31); CHLORIDE LEVEL 100.0 MMOL/L (98-107); CREATININE FOR GFR 3.54 MG/DL (0.70-1.30); GLOMERULAR FILTRATION RATE 17.5 (>42); POTASSIUM SERUM 4.1 MMOL/L (3.5-5.1); SODIUM LEVEL 141.0 MMOL/L (136-145)
[2025-10-10 14:49] LABS: PLATELET COUNT, AUTOMATED 99 10^3/uL (150-450)
== END ==
LOC: M WUC 08:54
DX: E78.5 Hyperlipidemia, unspecified (principal)